=== PATIENT | female | born 1965 | race Caucasian/White ===

== ENCOUNTER → 2022-09-24 | Outpatient (CLI) | payer BC, SELFPAY ==
--- NOTE | 2022-09-24 08:43 | BI_ITS ---
MAMMOGRAPHY - BILATERAL SCREENING REASON FOR EXAM: Female, 57 years old. Routine annual screening examination. PERTINENT HISTORY: Left excisional biopsy at age 18. No reported personal or family history of breast cancer. TECHNIQUE: Digital bilateral breast radha (3D mammographic acquisition) in the CC and MLO projections. 2-D mediolateral oblique (MLO) and craniocaudad (CC) views of both breasts were obtained. CAD: Full Field Digital Mammography with Computer Added Detection was performed. COMPARISON: Mammogram from 11/28/2016, 05/23/2014. FINDINGS: Breast Composition: The breasts are heterogeneously dense, which may obscure small masses. Finding 1: There is a focal asymmetry right central retroareolar breast, middle depth, approximately 4.3 cm posterior to the nipple. This is seen best on 3-D radha synthesis views. Further assessment with spot compression views and ultrasound is recommended. Finding 2: There is an asymmetry in the right inner breast, middle depth, seen best on CC 3-D radha synthesis views, approximately 3.9 cm posterior to the nipple. Further assessment with spot compression views and ultrasound is recommended. Findings 3: There is a suspicious 2.1 x 1.3 cm high density irregularly marginated mass in the left lower inner breast, posterior depth, approximately 6 cm posterior to nipple. Further assessment with spot compression views and ultrasound is recommended. No suspicious calcifications. No other significant abnormalities identified. BI/SCRN MAMM (CAD)W/RADHA BILAT IMPRESSION: Further imaging evaluation recommended, as described above. (E) Recall Side: Both Breasts ASSESSMENT CATEGORY: BIRADS Category 0: Incomplete. Need additional imaging evaluation. A letter regarding these results will be sent to the patient by the facility within 30 days. Approximately 10% of breast cancers are not detected by mammography. A normal mammogram should not delay biopsy of a clinically suspicious abnormality. Electronically Signed: Jesús Mendoza, at 8:25 EST ,
--- NOTE | 2022-09-24 08:57 | BD_ITS ---
STUDY: DUAL ENERGY X-RAY ABSORPTIOMETRY / DXA REASON FOR EXAM: Female, 57 years old. N95.9 TECHNIQUE: Bone Mineral Density (BMD) measurements of lumbar spine and bilateral hips were obtained. COMPARISON: Comparison is made with prior examination 05/23/2014. FINDINGS: Lumbar Spine (L1-L4): g/cm2 (0.930) / T-score (-1.6) / Z-score (-0.3) Findings are suggestive of osteopenia with a moderate fracture risk. Left Femur Total: g/cm2 (0.948) / T-score (0.1) / Z-score (0.9) Left Femoral Neck: g/cm2 (0.715) / T-score (-1.2) / Z-score (0.0) Right Femur Total: g/cm2 (0.926) / T-score (-0.1) / Z-score (0.7) Right Femoral Neck: g/cm2 (0.676) / T-score (-1.6) / Z-score (-0.4) The T-Scores on the most recent prior examination were: Lumbar Spine (L1-L4): There has been worsening of bone density since the previous examination. Left Femur Total: which represents an improvement of 2.4%. Right Femur Total: which represents an improvement of 3.6%. BD/Dexa Bone Density Study IMPRESSION: The patient is considered osteopenic as outlined below according to World Slava Organization (WHO) criteria with a moderate fracture risk. There has been improvement of bone density since the previous examination. Reference Information: The T-score is the number of standard deviations above or below the standard which is normal for young adults at their peak bone mineral density. The World Health Organization (WHO) interprets the T-scores as follows: Above -1 Normal bone density Between -1 and -2.5 Osteopenia Equal to / or below -2.5 Osteoporosis As a practical clinical guideline, osteopenia may be graded as follows: Mild -1 through -1.5 Moderate -1.6 through -2.0 Severe -2.1 through -2.4 The Z-score is the number of standard deviations above or below age-matched controls. A Z-score of less than -1.5 would be considered abnormal. References: 1. NIH Osteoporosis and Related Bone Diseases www osteo.org 2. International Society for Clinical Densitometry www iscd.org 3. National Osteoporosis Foundation www nof.org Electronically Signed: Javier Sinclair MD at 15:27 EST ,
== END | disposition home or self-care (01) ==
PROVIDERS: PCP Family Medicine; Visit Provider Family Medicine
DX: Z00.00 Encounter for general adult medical examination without abnormal findings (principal); R92.8 Other abnormal and inconclusive findings on diagnostic imaging of breast; Z12.31 Encounter for screening mammogram for malignant neoplasm of breast; N63.24 Unspecified lump in the left breast, lower inner quadrant; V70.9XXA Unspecified occupant of bus injured in collision with pedestrian or animal in traffic accident, initial encounter; N95.9 Unspecified menopausal and perimenopausal disorder
CPT/HCPCS: 77063; 77067; 77080

== ENCOUNTER → 2022-09-26 | Outpatient (CLI) | payer BC, SELFPAY ==
--- NOTE | 2022-09-26 09:03 | US_ITS ---
Exam: Diagnostic bilateral breast mammogram and diagnostic bilateral breast ultrasound. REASON FOR EXAM: Female, 57 years old. Callback for bilateral breast findings concerning for malignancy. PERTINENT HISTORY: Left excisional biopsy at age 18. No reported personal or family history of breast cancer. TECHNIQUE: Digital bilateral diagnostic mammogram with spot compression CC and MLO views obtained. CAD was performed on this study. Real-time, grayscale and color sonographic images were obtained of all 4 quadrants of the bilateral breasts COMPARISON: Screening mammogram from 09/24/2022, 11/28/2016. Mammogram findings: Breast Composition: The breasts are heterogeneously dense, which may obscure small masses. Right breast: Finding 1: Spot compression views demonstrate persistence of the right central retroareolar focal asymmetry with spiculated margins concerning for mass. Finding 2: Spot compression views demonstrate persistence of the asymmetry in the right inner breast with spiculated margins concerning for mass. Additional findings: There are a few additional asymmetrical areas that persists on spot compression views and additional masses are suspected. Left breast: Findings 3: Spot compression views demonstrate persistence of high density irregularly marginated mass in the left lower inner breast. Additional findings: There are a few additional asymmetrical areas persist on spot compression views which could also relate to masses given additional findings on the remainder of the exams. Ultrasound was obtained for further assessment of both breasts. Ultrasound findings: Ultrasound of all 4 quadrants of the bilateral breasts was obtained. There are multiple bilateral suspicious masses. The most definitive masses are measured as detailed below: * 0.9 x 0.6 x 0.9 cm hypoechoic, spiculated, irregularly marginated mass with posterior shadowing at the 12 o''clock position of the right breast, 4 cm posterior to the nipple. * 0.5 x 0.4 x 0.7 cm hypoechoic, spiculated, irregularly marginated mass with posterior shadowing at the 12 o''clock position of the right breast, 5 cm posterior to the nipple. * 0.6 x 1.0 x 1.3 cm hypoechoic, spiculated, irregularly marginated mass with posterior shadowing at the 2 o''clock position of the right breast, 4 cm posterior to the nipple. * 1.7 x 0.8 x 1.4 cm hypoechoic, spiculated, irregularly marginated mass with posterior shadowing at the 10 o''clock position of the left breast, 6 cm posterior to nipple. This mass is felt to correlate to the mammographic findings although the mass appears to be in the lower inner breast on mammography. A simple cyst is noted at the 6 o''clock position of the left breast. US/Breast Complete Bilateral IMPRESSION: Multifocal bilateral masses highly suspicious for malignancy. The largest masses seen on ultrasound are detailed above. Biopsy and surgical oncologic referral is recommended. These findings were discussed with the patient in person by myself, Dr. Mendoza, after her ultrasound examination. ASSESSMENT CATEGORY: BIRADS Category 5: Highly Suggestive of Malignancy - Appropriate Action Should Be Taken. A letter regarding these results will be sent to the patient by the facility within 30 days.. Recommend return to annual screening mammogram. Approximately 10% of breast cancers are not detected by mammography. A normal mammogram should not delay biopsy of a clinically suspicious abnormality. Electronically Signed: Jesús Mendoza, at 17:13 EST ,
== END | disposition home or self-care (01) ==
PROVIDERS: PCP Family Medicine; Referring Provider Family Medicine; Visit Provider Family Medicine
DX: N63.11 Unspecified lump in the right breast, upper outer quadrant (principal); N63.14 Unspecified lump in the right breast, lower inner quadrant; N63.24 Unspecified lump in the left breast, lower inner quadrant; R92.8 Other abnormal and inconclusive findings on diagnostic imaging of breast; R92.2 Inconclusive mammogram; N63.25 Unspecified lump in the left breast, overlapping quadrants
CPT/HCPCS: 76641; 77066

== ENCOUNTER → 2022-10-01 | Outpatient (CLI) | payer BC, SELFPAY ==
--- NOTE | 2022-10-01 | IMM_PTH ---
PATIENT: KAVEH MORAN LOC: EMI U#:[id number] AGE/SX: 57/F ROOM: RE10/01/[address]: Dr. Erum Villegas MD : 1965 BED: DIS: 10/01/2022 SPEC #: [id number] RECD: 10/02/22 14:44 STATUS: MIRANDA REQ #: [id number] MILY: 10/01/22 00:[address]: Erum Villegas DEPT: IMMUNOHISTOCHEMISTRY RECD BY: Nancy Rankin ENTERED: 10/02/22 14:47 SP TYPE: IMMUNO OTHR DR: Dr. Shonda Stinson MD Tissues: A - Right breast, NOS B - Right breast, NOS D - Left breast, NOS Procedures: CK5-6 (initial) SMA (add) CALPONIN-1 (add) CK8 (add) STRONG-2 (add) E-CAD (add) ER (add) HER2 DILMA (add) KI-67 (add) P53 (add) DE (add) P40 (add) PHYSICIAN & [address] [address] SPECIMEN INFORMATION: Tissue Source: A - Right breast 12 o?clock, 5 cm, B - Right breast 12 o?clock, 4 cm, D - Left breast 10 o?clock, 6 cm Clinical Info: Likely cancer Specimen Number: [id number] A, B & D CPT code: 56281 x3, 41112 16, 24204 x6 METHODOLOGY: Deparaffinized sections of prefer/formalin-fixed tissue or PAP/DQ stained slides are incubated with monoclonal/polyclonal antibodies/oligonucleotide probes. Localization is made via biotin free immunoperoxidase method. Appropriate controls are performed and reacted as expected. Results on target cell population are indicated in the following table: RESULTS: ANTIBODY / CLONE RESULT Block A Calponin-1 (YM845Y) negative Actin (1A4) negative CK5-6 (D5 & 1684) negative Block B P53 (DO-7) negative Ki-67 (30-9) positive, 15% CK8 (26dujzT30) positive CK5-6 (D5 & 1684) negative Calponin-1 (HI618T) negative P40 (BC28) negative E-Cad (ECH-6) negative STRONG-2 (SP21) negative MORPHOMETRIC ANALYSIS ER (clone 6F11) >95%, strong intensity DE (clone 16/1E2) 85%, moderate to strong intensity Her-2Neu (clone CB11) 0 Block D P53 (DO-7) negative, 50% Ki-67 (30-9) positive CK8 (23exxbL73) positive CK5-6 (D5 & 1684) negative Calponin-1 (DI111L) negative P40 (BC28) negative E-Cad (ECH-6) positive STRONG-2 (SP21) positive MORPHOMETRIC ANALYSIS ER (clone 6F11) >95%, strong intensity DE (clone 16/1E2) 85%, moderate to strong intensity Her-2Neu (clone CB11) 0 The prognostic test for HER2 is performed on formalin-fixed paraffin embedded tissue. A 3+ (positive) staining pattern is defined as intense, homogeneous, complete, circumferential membranous staining in >10% of contiguous tumor cells. A similar weak (2+) staining pattern is interpreted as equivocal. STEFANIA follow-up testing is recommended for all equivocal cases. Positivity/negativity for ER/DE is reported if > or < 1% of the tumor cells are immuno- reactive, respectively. The ASCO/CAP criteria is used for scoring. Reference: Journal of Clinical Oncology, 2013; 31:8372-4882 & 2010; 16:0925-4763. Duration of fixation: 9.5 Hrs; Sample Adequate: Yes. These assays have not been validated on decalcified tissues. Results should be interpreted with caution given the likelihood of false negativity on decalcified specimens. These tests were developed and their performance characteristics determined by [facility]. They may not have been cleared or approved by the U.S. Food and Drug Administration. The FDA has determined that such clearance or approval is not necessary. The above immunohistochemical/dualISH markers are ordered and reviewed by the Pathologist. INTERPRETATION: A. Right breast 12 o?clock, 5 cm, biopsy: Invasive lobular carcinoma, nuclear grade I. Lobular carcinoma in situ. B. Right breast 12 o?clock, 4 cm, biopsy: Invasive lobular carcinoma, nuclear grade II. Positive for estrogen receptors (favorable prognostic indicator). Positive for progesterone receptors (favorable prognostic indicator). Negative for overexpression of OYX4plh. D. Left breast 10 o?clock, 6 cm, biopsy: Invasive ductal carcinoma, nuclear grade II. Positive for estrogen receptors (favorable prognostic indicator). Positive for progesterone receptors (favorable prognostic indicator). Negative for overexpression of GUW4eve. Case has been reviewed in consultation with Dr. Hyde who concurs with the above diagnosis. IDC:LUCA AM:adeel 10/03/2022
--- NOTE | 2022-10-01 10:20 | BRBX_PTH ---
PATIENT: KAVEH MORAN LOC: MEI U#:[id number] AGE/SX: 57/F ROOM: RE10/01/[address]: Dr. Erum Villegas MD : 1965 BED: DIS: 10/01/2022 SPEC #: [id number] RECD: 10/01/22 12:44 STATUS: MIRANDA REQ #: [id number] MILY: 10/01/22 10:[address]: Erum Villegas DEPT: SURGICAL PATHOLOGY RECD BY: Brianna Ball ENTERED: 10/01/22 15:40 SP TYPE: BREAST BX OTHR DR: Dr. Shonda Stinson MD Tissues: A - Right breast, NOS B - Right breast, NOS C - Right breast, NOS D - Left breast, NOS Procedures: Surgery Specimen Level IV HEADER OPERATION: Biopsy of breast masses ? bilateral PRE-OP DIAGNOSIS: Likely cancer TISSUE SUBMITTED: A - Right breast 12 o?clock 5 cm, B - Right breast 12 o?clock 4 cm, C - Right breast 2 o?clock 5 cm, D - Left breast 10 o?clock 6 cm MICROSCOPIC DIAGNOSIS A. Right breast at 12 o?clock, 5 cm, core biopsy: Invasive lobular carcinoma with the following characteristics: Nuclear grade ? 1 Maximal length ? 3.0 millimeters. Other findings - Lobular carcinoma in situ. See comment. B. Right breast at 12 o?clock, 4 cm, core biopsy: Invasive lobular carcinoma with the following characteristics: Nuclear grade ? 2 Maximal length ? 10.0 millimeters. See comment. C. Right breast at 2 o?clock, 5 cm, core biopsy: Invasive lobular carcinoma with the following characteristics: Nuclear grade ? 1 Maximal length ? 7.5 millimeters. D. Left breast at 10 o?clock, 6 cm, core biopsy: Invasive ductal carcinoma with the following characteristics: Nuclear grade ? 2 Maximal length ? 9.0 millimeters. See comment. AM:adeel 10/02/2022 COMMENT A, B & D - Immunohistochemistry ([id number]) supports the above diagnosis. Case has been reviewed in consultation with Dr. Hyde who concurs with the above diagnosis. IDC:SJ MICROSCOPIC DESCRIPTION Slides are reviewed. GROSS DESCRIPTION A - Received in fixative is one container labeled with the patient's name and designated right breast tissue 12 o'clock, 5 cm. The specimen consists of multiple elongated fragments of santoyo-yellow fibroadipose tissue that in aggregate measure 1.5 x 0.3 x 0.1 cm. The entire specimen is submitted in one cassette. B - Received in fixative is one container labeled with the patient's name and designated right breast tissue 12 o'clock, 4 cm. The specimen consists of multiple elongated fragments of santoyo-yellow fibroadipose tissue that in aggregate measure 1.5 x 0.5 x 0.1 cm. The entire specimen is submitted in one cassette. C - Received in fixative is one container labeled with the patient's name and designated right breast tissue 2 o'clock, 5 cm. The specimen consists of multiple elongated fragments of santoyo-yellow fibroadipose tissue that in aggregate measure 1 x 0.3 x 0.1 cm. The entire specimen is submitted in one cassette. D - Received in fixative is one container labeled with the patient's name and designated left breast tissue 10 o'clock, 6 cm. The specimen consists of two elongated fragments of santoyo-yellow fibroadipose tissue that in aggregate measure 1.8 x 0.3 x 0.1 cm. The entire specimen is submitted in one cassette. / SJ:rg 10/01/2022 TC:0 CPT: 10756 x4
== END | disposition home or self-care (01) ==
LOC: LABSPEC 13:50
PROVIDERS: PCP Family Medicine; Referring Provider Surgery; Visit Provider Surgery
DX: C50.211 Malignant neoplasm of upper-inner quadrant of right female breast (principal); C50.811 Malignant neoplasm of overlapping sites of right female breast; C50.212 Malignant neoplasm of upper-inner quadrant of left female breast; Z17.0 Estrogen receptor positive status [ER+]
CPT/HCPCS: 88305; 88341; 88342

== ENCOUNTER → 2022-10-21 | Outpatient (CLI) | payer BC, SELFPAY ==
--- NOTE | 2022-10-21 07:50 | MRI_ITS ---
STUDY: BILATERAL BREAST MR WITHOUT AND WITH CONTRAST REASON FOR EXAM: Female, 57 years old. New diagnosis of invasive lobular carcinoma. TECHNIQUE: Multi-sequence multi-echo imaging of both breasts was performed with a dedicated breast coil. T1-weighted and T2-weighted images were performed before the administration of contrast. T1-weighted images were also performed after the intravenous administration of 17ml of Clariscan contrast. COMPARISON: Bilateral breast ultrasound dated September 26, 2022 and bilateral mammogram dated September 26, 2022. FINDINGS: RIGHT BREAST: Scattered fibroglandular tissuewith moderate background enhancement. Multiple scattered irregular enhancing masses from the retroareolar region of the right breast to the posterior aspect of the right breast extending from the medial quadrant to the lateral quadrant. The largest focal mass in the upper inner quadrant measures 16 mm x 12 mm x 1 cm and is located 5.8 cm behind the nipple 2.1 cm medial to the nipple. Another focal area of enhancement is located at the 12:00 position 5.9 cm behind the nipple and measures 7 mm in widest diameter. All of these foci of enhancement are highly suspicious for tumor involvement and the entire region of enhancement occupies 4 cm x 6.3 cm x 6.9 cm and appears to involve all quadrants of the right breast. LEFT BREAST: Scattered fibroglandular tissue with moderate background enhancement. 2 irregular masses in the retroareolar region of the left breast, one measuring 11 mm in diameter and the other measuring 7 mm in diameter. Posterior and superior to this are multiple areas of clumped non-mass enhancement occupying an area of approximately 3.5 cm x 4 cm x 6.5 cm and involving all four quadrants of the left breast. Large lobular enhancing mass in the upper inner quadrant of the left breast measuring 15 mm x 12 mm 18 mm with tissue clip marker within it. This mass is located 6.7 cm behind the nipple and 3.1 cm medial to the nipple. There are no enlarged or abnormal lymph nodes. There is no abnormality in the visualized regions of the chest or liver. MRI/Breast Bilateral W/O and W IMPRESSION: Findings compatible with extensive multicentric tumor involvement in both breasts with focal areas as described above. No abnormal lymph nodes identified in either axilla. CATEGORY: BIRADS Category 6: Known Biopsy-Proven Malignancy - Appropriate Action Should Be Taken. A letter regarding these results will be sent to the patient by the facility within 30 days. Electronically Signed: Everett Almaguer, at 9:50 EST ,
== END | disposition home or self-care (01) ==
PROVIDERS: PCP Family Medicine; Referring Provider Surgery; Visit Provider Surgery
DX: C50.911 Malignant neoplasm of unspecified site of right female breast (principal); C50.912 Malignant neoplasm of unspecified site of left female breast
CPT/HCPCS: 77049; A9575; J7050; A4216; C8908

== ENCOUNTER 2022-11-12 14:35 | Observation (INO) | payer BC, SELFPAY ==
--- NOTE | 2022-11-10 12:03 | EKG12_ITS ---
Test Reason : PRE-OP Blood Pressure : / mmHG Vent. Rate : 072 BPM Atrial Rate : 072 BPM P-R Int : 138 ms QRS Dur : 080 ms QT Int : 344 ms P-R-T Axes : 044 -09 058 degrees QTc Int : 376 ms Normal sinus rhythm with sinus arrhythmia ST & T wave abnormality, consider anterior ischemia Abnormal ECG Confirmed by JACOB ESCALANTE, VIRGIL ([id number]), book or script editor LUCA PATTON ([id number]) on 11/11/2022 7:40:04 AM Referred By: AUGUSTIN Confirmed By:VIRGIL JAMES MD
[2022-11-12] VITALS (10 sets, daily range): BP systolic 129–157; BP diastolic 62–81; PULSE 67–106; RESP 16–18; TEMP 36.1–37; O2SAT 94–100; BMI 34.0
--- NOTE | 2022-11-12 | IMM_PTH ---
PATIENT: KAVEH MORAN LOC: MS3 U#:[id number] AGE/SX: 57/F ROOM: [facility] RE11/12/[address]: Dr. Erum Villegas MD : 1965 BED: 1 DIS: 11/13/2022 SPEC #: [id number] RECD: 11/17/22 11:56 STATUS: SOUMaria Del Carmen REQ #: [id number] MILY: 11/12/22 00:[address]: Erum Villegas DEPT: IMMUNOHISTOCHEMISTRY RECD BY: Nancy Rankin ENTERED: 11/17/22 12:20 SP TYPE: IMMUNO OTHR DR: Dr. Shonda Stinson MD Tissues: A - Axillary lymph node, NOS C - Axillary lymph node, NOS E - Left breast, NOS F - Axillary lymph node, NOS Procedures: E-CAD (initial) CALPONIN-1 (add) CK7 (add) CK8 (add) E-CAD (add) Pankeratin (initial) Pankeratin (add) P40 (add) PHYSICIAN & [address] [address] SPECIMEN INFORMATION: Tissue Source: A - Right sentinel lymph node, C - Left axillary sentinel lymph nodes, D - Right breast tissue, E - Left breast tissue, F - Left axillary node content Clinical Info: Invasive lobular carcinoma right breast; invasive ductal carcinoma left breast Specimen Number: [id number] A1, C2, D9, D11, E11, F1-F10 CPT code: 86654 x5, 69156 x31 METHODOLOGY: Deparaffinized sections of prefer/formalin-fixed tissue or PAP/DQ stained slides are incubated with monoclonal/polyclonal antibodies/oligonucleotide probes. Localization is made via biotin free immunoperoxidase method. Appropriate controls are performed and reacted as expected. Results on target cell population are indicated in the following table: RESULTS: ANTIBODY / CLONE RESULT Block A1 AE1-3 (AE1/AE3/PCK26) negative CK7 (OV-TL12/30) negative Block C2 AE1-3 (AE1/AE3/PCK26) negative CK7 (OV-TL12/30) negative Block D9 E-Cad (ECH-6) negative * CK8 (68aseeA39) positive P40 (BC28) negative Calponin-1 (AG423G) negative *?Positive in area of invasive ductal carcinoma and ductal carcinoma in situ. Block D11 E-Cad (ECH-6) negative CK8 (76jkspG63) positive P40 (BC28) negative Calponin-1 (LL577C) negative ?Positive in DCIS. ?Positive in the area of LCIS and DCIS. Block E11 E-Cad (ECH-6) negative * CK8 (06tiioC89) positive P40 (BC28) positive in myoepithelial layers Calponin-1 (KT823U) positive in myoepithelial layers * positive?in the area of DCIS. Block F1 AE1-3 (AE1/AE3/PCK26) negative CK7 (OV-TL12/30) negative Block F2 AE1-3 (AE1/AE3/PCK26) negative CK7 (OV-TL12/30) negative Block F3 AE1-3 (AE1/AE3/PCK26) positive, micrometastasis CK7 (OV-TL12/30) positive, micrometastasis Block F4 AE1-3 (AE1/AE3/PCK26) negative CK7 (OV-TL12/30) negative Block F5 AE1-3 (AE1/AE3/PCK26) negative CK7 (OV-TL12/30) negative Block F6 AE1-3 (AE1/AE3/PCK26) negative CK7 (OV-TL12/30) negative Block F7 AE1-3 (AE1/AE3/PCK26) negative CK7 (OV-TL12/30) negative Block F8 AE1-3 (AE1/AE3/PCK26) negative CK7 (OV-TL12/30) negative Block F9 AE1-3 (AE1/AE3/PCK26) negative CK7 (OV-TL12/30) negative Block F10 AE1-3 (AE1/AE3/PCK26) negative CK7 (OV-TL12/30) negative These tests were developed and their performance characteristics determined by [facility]. They may not have been cleared or approved by the U.S. Food and Drug Administration. The FDA has determined that such clearance or approval is not necessary. The above immunohistochemical/dualISH markers are ordered and reviewed by the Pathologist. INTERPRETATION: A. Right sentinel lymph node, biopsy: One lymph node, negative for metastatic carcinoma. C. Left axillary sentinel lymph nodes, biopsy: One lymph node, negative for metastatic carcinoma. D. Right breast tissue, mastectomy: Invasive lobular carcinoma. Lobular carcinoma in situ. A small focus of invasive ductal carcinoma. Focal ductal carcinoma in situ. E. Left breast tissue, mastectomy: Focal ductal carcinoma in situ. Focal lobular neoplasia (including atypical lobular hyperplasia and lobular carcinoma in situ). F. Left axillary node content, biopsy: One lymph node out of 19 positive for micrometastasis. SJ:adeel 11/18/2022
--- NOTE | 2022-11-12 | AXNB_PTH ---
PATIENT: KAVEH MORAN LOC: MS3 U#:[id number] AGE/SX: 57/F ROOM: [facility] [place] RE11/12/[address]: Dr. Erum Villegas MD : 1965 BED: 1 DIS: 11/13/2022 SPEC #: [id number] RECD: 11/12/22 11:16 STATUS: MIRANDA ISIDRO #: [id number] MILY: 11/12/22 00:[address]: Erum Villegas DEPT: SURGICAL PATHOLOGY RECD BY: Nancy Rankin ENTERED: 11/12/22 11:52 SP TYPE: AX NODE BX OTHR DR: Dr. Shonda Stinson MD Tissues: A - Axillary lymph node, NOS B - Axillary lymph node, NOS C - Axillary lymph node, NOS D - Right breast, NOS E - Left breast, NOS F - Axillary lymph node, NOS Procedures: Frozen Section (charge) Surgery Specimen Level V HEADER OPERATION: Bilateral mastectomies with right sentinel lymph node biopsy PRE-OP DIAGNOSIS: Invasive lobular carcinoma right breast; invasive ductal carcinoma left breast TISSUE SUBMITTED: A - Right breast sentinel lymph node, FS, B - Left breast sentinel lymph node, FS, C - Left breast sentinel lymph nodes, FS, D - Right breast tissue, long suture - lateral, short suture - superior, E - Left breast tissue, long suture - lateral, short suture - superior, F - Left axillary node content FROZEN SECTION DIAGNOSIS A. Right sentinel lymph node, biopsy: One lymph node, negative for metastatic carcinoma. B. Left axillary sentinel lymph node, biopsy: One lymph node, positive for metastatic carcinoma. C. Left axillary sentinel lymph nodes, biopsy: One out of two lymph nodes, positive for metastatic carcinoma. LUCA:adeel 11/12/2022 MICROSCOPIC DIAGNOSIS A. Right sentinel lymph node, biopsy: One lymph node, negative for metastatic carcinoma. See comment. B. Left axillary sentinel lymph node, biopsy: One lymph node, positive for metastatic carcinoma. See comment. C. Left axillary lymph nodes, biopsy: One out of two lymph nodes, positive for metastatic carcinoma. See comment. D. Right breast, mastectomy: Invasive lobular carcinoma, multifocal x4. Invasive ductal carcinoma (0.5 x 0.2 cm). 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 See cancer summary in the comment section. E. Left breast, mastectomy: Invasive ductal carcinoma. See cancer summary in the comment section. F. Left axillary contents, lymph node dissection. One out of 19 lymph nodes positive for micrometastatic carcinoma. See comment. LUCA:adeel 11/17/2022 COMMENT A. The lymph node is negative for metastatic carcinoma on multiple H & E levels and immunohisto-chemical stains for cytokeratins ([id number]). B. The metastatic focus measures 0.5 cm in greatest dimension. Extranodal extension is not seen. C. The metastatic focus measures 2.0 cm in greatest dimension. Extranodal extension is not seen. The smaller lymph node with blue dye discoloration is negative for metastatic carcinoma on multiple levels and immunohistochemical stains for cytokeratins. ([id number]). F. Immunohistochemistry ([id number]) supports the above diagnosis. Focus of micrometastasis measures 1.5 mm in greatest dimension. Extranodal extension is not seen. D. BREAST CANCER SUMMARY Procedure ? total mastectomy Specimen laterality - right Tumor site ? central and medial portion. Tumor size ? Invasive lobular carcinoma largest focus - 1.3 x 1.2 cm Invasive ductal carcinoma - 0.5 x 0.2 cm Histologic type ? Invasive ductal carcinoma, no special type and invasive lobular carcinoma. Histologic grade (Ira grade): Invasive lobular carcinoma: Glandular/tubular differentiation score - 3 Nuclear pleomorphism score - 2 Mitotic count score - 1 Overall grade - grade 2 (score of 6) Invasive ductal carcinoma: Glandular/tubular differentiation score - 1 Nuclear pleomorphism score - 1 Mitotic count score - 1 Overall grade - grade 1 (score of 3) Tumor focality ? Multifocal Number of foci: five four foci of invasive lobular carcinoma Size of individual foci ? Tumor #1 ? 1.0 x 1.0 cm Tumor #2 ? 1.3 x 1.2 cm Tumor #3 ? 1.2 x 1.0 cm Tumor #4 ? 1.0 x 0.7 cm one focus of invasive ductal carcinoma ? 0.5 x 0.2 cm Ductal carcinoma in situ ? present, focal Negative for extensive intraductal component (EIC). Size (extent) of DCIS ? DCIS comprise <5% of the total tumor volume. Number of blocks with DCIS ? 2 Architectural pattern ? cribriform Nuclear grade ? low to intermediate Necrosis - present Lobular carcinoma in situ ? present, adjacent to the invasive carcinoma and away from it. Tumor extension: Skin ? skin is present and uninvolved. Nipple ? DCIS does not involve nipple epidermis. Skeletal muscle ? no skeletal muscle is present. Margins ? Invasive lobular carcinoma, invasive ductal carcinoma, lobular carcinoma in situ and ductal carcinoma in situ are 2.0 cm away from the closest posterior margin. Regional lymph nodes: Specimen A Number of lymph nodes examined - 1 Number of sentinel lymph nodes examined - 1 Number of lymph nodes with macrometastases, micrometastases or isolated tumor cells - 0 Treatment effect - no known presurgical therapy. Lymphvascular invasion ? not identified Dermal lymphvascular invasion - not identified Additional Pathologic Findings ? Extensive atypical lobular hyperplasia, fibrocystic changes and intraductal hyperplasia with atypia. Ancillary Studies: Previously performed (S23 / RF23-18) ER: positive (>95%, strong intensity) IA: positive (85%, moderate to strong intensity) Fnt2jdo: negative (0) Microcalcifications ? present in lobular carcinoma in situ and non-neoplastic breast tissue. Clinical History - Please make reference to previous specimen (S2), right breast at 12 o?clock, 5 cm and right breast at 12 o?clock, 4 cm and right breast, 2 o?clock, 5 cm, core biopsies with diagnosis of ?invasive lobular carcinoma.? PATHOLOGIC STAGE: pT1(m) pN0 pMx E. BREAST CANCER SUMMARY Procedure ? mastectomy Specimen laterality - left Tumor site ? central portion of the breast Tumor size ? 2.0 x 1.8 x 1.5 cm Histologic type ? invasive ductal carcinoma, no special type. Histologic grade ([place] grade): Glandular/tubular differentiation score - 3 Nuclear pleomorphism score - 3 Mitotic count score - 1 Overall grade - grade 2 (score of 7) Tumor focality ? single focus of invasive carcinoma. Ductal carcinoma in situ - present Negative for extensive intraductal component (EIC). Size (extent) of DCIS ? DCIS comprise <5% of the total tumor volume. Number of blocks with DCIS - 2 Number of blocks examined - 12 Architectural pattern ? cribriform and solid Nuclear grade - grade 2 (intermediate) Necrosis ? not identified Lobular carcinoma in situ ? present Tumor extension: Skin ? skin is present and uninvolved. Nipple ? DCIS does not involve the nipple epidermis. Skeletal muscle ? no skeletal muscle present. Margins - Invasive ductal carcinoma, lobular carcinoma in situ and ductal carcinoma in situ are 1 cm away from the closest posterior margin. Regional lymph nodes: specimens B, C & F Number of lymph nodes examined - 22 Number of sentinel lymph nodes examined - 3 Number of lymph nodes with macrometastases ? 2 Number of lymph nodes with micrometastases ? 1 Number of lymph nodes with isolated tumor cells ? 0 Size of largest metastatic deposit ? 2 cm Extranodal extension ? not identified Treatment effect - no known presurgical therapy. Lymphvascular invasion ? not identified Dermal lymphvascular invasion ? not identified Additional Pathologic Findings ? fibrocystic changes and adenosis. Intraductal hyperplasia with focal atypia. Atypical lobular hyperplasia. Nipple, chronic inflammation. Ancillary Studies: Previously performed on section of tumor (S23-54 / RF23-18) ER: positive (>95%, strong intensity) IA: positive (85%, moderate to strong intensity) Dsl3iba: negative (0) Microcalcifications ? present in benign breast tissue. Clinical History - Please make reference to previous specimen (S23-54) left breast at 10 o?clock, 6 cm, core biopsy with diagnosis of ?invasive ductal carcinoma.? PATHOLOGIC STAGE: pT1c pN1a pMx The above summary is in compliance with [employer] (CAP) Cancer Protocols Checklist and [place] [employer] on Cancer (AJCC), Staging Manual, 8th Ed. This case is discussed with Dr. Villegas on 11/18/22. Case has been reviewed in consultation with Dr. Valenzuela who concurs with the above diagnosis. IDC:AM MICROSCOPIC DESCRIPTION Slides are reviewed. GROSS DESCRIPTION A - Received fresh for frozen section diagnosis labeled with the patient's name is a specimen designated right sentinel lymph node. The specimen consists of an ovoid nodule with blue dye discoloration measuring 2.0 x 1.0 x 0.6 cm. The specimen is bisected and submitted entirely for frozen section diagnosis in one cassette. The specimen is submitted after additional fixation. / : 11/12/2022 B - Received fresh for frozen section diagnosis labeled with the patient's name is a specimen designated left axillary sentinel lymph node. The specimen consists of an ovoid nodule with blue dye discoloration measuring 3.5 x 2.0 x 1.0 cm. The specimen is bisected and submitted entirely for frozen section diagnosis in two cassettes. The specimen is submitted after additional fixation. / : 11/12/2022 C - Received fresh for frozen section diagnosis labeled with the patient's name is a specimen designated left axillary sentinel lymph nodes. The specimen consists of two pieces of yellow adipose tissue containing lymph nodes measuring 5.0 x 4.0 x 1.5 cm and 1.0 x 0.5 x 0.5 cm. The smaller lymph node shows blue dye discoloration. The larger lymph node measures 2.0 cm in greatest dimension. The lymph nodes are submitted in entirety in five cassettes as follows: 1 - frozen section, larger lymph node a agency service representative section, 2 - one bisected lymph node, 3-5 - the rest of the larger lymph node. / : 11/12/2022 D - Received in fixative is one container labeled with the patient's name and designated right breast tissue, long suture - lateral, short suture - superior. The specimen consists of a mastectomy specimen consisting of breast tissue with overlying skin measuring 18.0 x 19.0 x 5.0 cm. The skin measures 17.0 x 5.5 cm. The nipple measures 1.4 cm in greatest dimension. The specimen is inked as follows: posterior - black, superior - blue, inferior - green, medial - red and lateral - orange. No skin lesion is identified. Four ill-defined masses are noted. The largest mass measures 1 cm in greatest dimension. Three masses are present in the central portion of the specimen and fourth mass is present medially. The most closes margin is posterior margin which is 2 cm away from the tumor mass. Sections of the rest of the specimen reveal santoyo-yellow adipose cut surfaces with focal fibrous areas. Blister Packaging Machine Operator sections are submitted in 20 cassettes as follows: 1 - nipple, entirely submitted, 2 - perpendicular superior, inferior margins and skin, 3 - perpendicular medial, lateral and posterior margins, 4 & 5 - tumor #1, most medial, 6-8 - tumor #2, 9-11 - tumor #3, 12 & 14 - tumor #4. All the tumors identified grossly are submitted in entirety. 15-20 ? agency service representative sections from the other areas. The specimen is submitted after additional fixation. / SJ: 11/13/2022 E - Received in fixative is one container labeled with the patient's name and designated left breast tissue, long suture - lateral, short suture - superior. The specimen consists of a mastectomy specimen consisting of breast tissue with overlying skin ellipse. The breast tissue measures 19.0 x 20.0 x 5.0 cm. The skin measures 16.0 x 7.0 cm. The nipple measures 1.4 cm in greatest dimension. The specimen is inked as follows: posterior - black, superior - blue, inferior - green, medial - red and lateral - orange. No skin lesion is identified. Sections reveal a santoyo, indurated mass in the central portion of the breast measuring 2.0 x 1.8 x 1.5 cm. This mass is 1.0 cm away from the closest posterior margin. Sections of the rest of the breast reveal santoyo-yellow adipose cut surfaces mixed with santoyo fibrous areas. Blister Packaging Machine Operator sections are submitted in 12 cassettes as follows: 1 - nipple, entirely submitted, 2 - perpendicular superior and inferior margins and skin, 3 - perpendicular medial, lateral and posterior margins, 4-7 - tumor, 812 - agency service representative sections adjacent and away from the tumor. The specimen is submitted after additional fixation. / SJ:rg 11/13/2022 F - Received in fixative is one container labeled with the patient's name and designated left axillary node content. The specimen consists of a piece of adipose tissue containing multiple nodules consistent with lymph nodes measuring in aggregate 8.0 x 7.0 x 2.0 cm. Multiple nodules consistent with lymph nodes are identified. The largest nodule measures 3.0 cm in greatest dimension. Four nodules also show blue dye discoloration. The lymph nodes are submitted in entirety in ten cassettes as follows: 1 - one bisected lymph node, 2 - one bisected lymph node, 3 - one bisected lymph node (cassette 1-3 contain the nodules with blue dye discoloration), 4 - multiple lymph nodes, one lymph node with blue dye discoloration which is inked black, 5 - multiple lymph nodes, 6 - one bisected lymph node, 7 - one bisected lymph node, 8 - one bisected lymph node, 9 & 10 - one bisected lymph node, largest lymph node. The specimen is submitted after additional fixation. / SJ:rg 11/13/2022 TC:0 CPT: 76176 x6, 71247 x3, 71941 x2 ADDENDUM ADDENDUM ADDENDUM ADDENDUM ADDENDUM ADDENDUM ADDENDUM ADDENDUM ADDENDUM ADDENDUM ADDENDUM ADDENDUM 12/22/2022 09:30 ADDENDUM 12/22/2022 09:30 ADDENDUM 12/22/2022 09:30 ADDENDUM 12/22/2022 09:30 ADDENDUM 12/22/2022 09:30 An order for Oncotype testing was received from Dr. Guillaume. This necessitated case review, block and slide selection by pathologist at [facility]. Block D9: Breast Cancer Recurrence Score = 12 Block E5 Breast Cancer Recurrence Score = 11 Results of the complete Oncotype testing ([employer] report) are viewable in EMR under: Reports - Pathology - Lab Pathology Report, Scanned.
--- NOTE | 2022-11-12 07:45 | NM_ITS ---
PROCEDURE: NUCLEAR MEDICINE Injection [place] Node - RIGHT breast(s). REASON FOR EXAM: Female, 57 years old. Right breast cancer. TECHNIQUE: [place] node localization using radionuclide methods of the RIGHT breast(s) was performed following subcutaneous administration of 1.1 mCi of of sulfur colloid Tc-99m. FINDINGS: 1.1 mCi of technetium labeled sulfur colloid was injected subcutaneously in 4 equal aliquots for sentinel node imaging. NM/Lymph Node Injection Only IMPRESSION: 1.1 mCi of technetium labeled SULFA colloid was injected subcutaneously in 4 equal aliquots for sentinel node imaging. The patient tolerated the procedure well. Electronically Signed: Javier Sinclair MD at 9:05 EST ,
--- NOTE | 2022-11-12 07:45 | NM_ITS ---
PROCEDURE: NUCLEAR MEDICINE Injection [place] Node - LEFT breast(s). REASON FOR EXAM: Female, 57 years old. TECHNIQUE: [place] node localization using radionuclide methods of the LEFT breast(s) was performed following subcutaneous administration of 1.1 mCi of of sulfur colloid Tc-99m in 4 equal aliquots in the periareolar region. FINDINGS: 1.1 mCi of technetium labeled sulfur colloid was injected subcutaneously in the periareolar region. The patient tolerated the procedure well. NM/Lymph Node Injection Only IMPRESSION: 1.1 mCi FDG. The gallbladder was injected subcutaneously in the periareolar region for sentinel node imaging. Electronically Signed: Javier Sinclair MD at 9:03 EST ,
[2022-11-12] MEDS: Lactated Ringers 1,000 ML 15 ML IV (07:55)
--- NOTE | 2022-11-12 09:25 | HP.PCM_ITS ---
History and Physical Date of Admission: 11/12/22 Date of Service:? 11/10/22 MR#: [id number] Acct: [id number] Name:KAVEH MAYEN Rep #: [id number] : 1965 ? ? Provider: Dr. Erum Villegas MD Age/Sex:? 57/F ? ? Location: [facility] [place] Status: Signed Intake Vital Signs ? 10/28/2307:03 Height 5 ft 4 in Intake Visit Reasons:?Wants a sit down to discuss surgery Chief Complaint: discuss surgery Anesthesiology Tech Required: No Is patient in pain?: No Allergies No Known Allergies Allergy (Verified 11/10/22 13:13) Medications calcium carbonate 500 mg-vitamin D3 10 mcg (400 unit) tablet (Calcium 500 + D) 1 tab PO DAILY 11/05/22 [History Confirmed 11/10/22] echinacea 400 mg capsule 400 mg PO DAILY 11/05/22 [History Confirmed 11/10/22] multivitamin 1 tab PO DAILY 11/05/22 [History Confirmed 11/10/22] Is last menstrual period known: No Post menopausal: Yes Patient : No PFSH Medical History?(Updated 11/10/22 @ 15:[address] Erum Villegas MD) Gastric reflux History of stress test 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 of right breast in female Kidney stone Non-smoker Post-menopausal Scoliosis Wears glasses Wears partial dentures Surgical History?(Updated 11/10/22 @ 13:14 by Camille Vargas) History of bilateral breast biopsy (~09/2022) History of partial hysterectomy Hx of exploratory laparotomy Hx of shoulder surgery Family History?(Updated 10/01/22 @ 10:11 by Charley Medel) Mother CancerSister Thyroid disorder Cancer Social History?(Updated 10/01/22 @ 10:12 by Charley Medel) Smoking Status:? Never smoker alcohol intake:? current alcohol intake frequency: a few times a month substance use type:? does not use HPI HPI HPI: 57-year-old female presents to discuss surgery for bilateral breast cancer.? Biopsy shows 3 areas in the right breast consistent with invasive lobular carcinoma grade 1-2, ER/HI positive HER2/balbir negative.? Patient's left breast had invasive ductal grade 2, ER/HI positive HER2/balbir negative.? Patient's MRI did show distal area in the left left breast towards the nipple which enhanced- however there are no abnormal looking nodes in the right or left axilla.? Patient has no family history of breast cancer. ROS General General: No weight change, appetite, fatigue, colon cancer or breast cancer HEENT HEENT: No difficulty swallowing, eye injury, eye surgery, swollen glands or hoarseness Endo Endocrine: No thyroid disease, diabetes mellitus, thyroid cancer, Hair loss, heat intolerance or cold intolerance Skin Skin: No rash or changing moles Breast Breast: Yes abnormal mammogram and abnormal US; No left breast lump, right breast lump, nipple discharge, breast pain or breast enlargement Musc Musculoskeletal: Yes back problems; No arthritis, rheumatoid arthritis, gout or joint pain Cardio Cardiovascular: No murmur, pacemaker, heart disease, atrial fibrillation, high blood pressure, heart attack, heart stent, palpitations, shortness of breat with exertion or chest pain Psych Psychiatric: No depression, anxiety or hearing voices Resp Respiratory: No shortness of breath, No sleep apnea, No cough, No COPD, No asthma, No emphysema and No wheezing Gastro Gastrointestinal: No abdominal pain, No nausea or vomiting, No diarrhea, No constipation, No blood in stool, No acid reflux, No hemorrhoids, No ulcers, No gallbladder problem and No black,tarry stools Jonathan Hematologic: No blood thinners, No blood disorders, No bleeding, No anemia and No blood clots Exam Const General: cooperative, healthy appearing and no acute distress HENMT Head: normal to inspection Resp Effort & Inspection: normal respiratory effort Cardio Rate: regular rate GI Inspection: non-distended Palpation: soft Skin General: no rashes or lesions noted Neuro General: patient oriented x3 Extrem General: no clubbing, cyanosis or edema Psych Affect: normal affect Assessment and Plan Assessment and Plan (1) Invasive lobular carcinoma of right breast in female: ?Status:?Acute ?Comment: 3 sites biopsied (2) Invasive ductal carcinoma of left breast: ?Status:?Acute ?Comment: 1 biopsied with an additional area closer to nipple on MRI Plan Did review patient's pathology as well as her MRI personally and with the patient and her . I have given the patient options for initial surgical treatment. Options are the following:? mastectomy vs. mastectomy followed by immediate reconstruction due to the extent of disease seen on MRI. I have described the procedures to the patient. I have described the advantages and disadvantages of the options, but I have told the patient that among the options, the survival rate for breast cancer is the same. I have told the patient that with all the surgeries that a sentinel lymph node biopsy is required. I have described the procedure of sentinel lymph node biopsy to the patient. I have told the patient that if the biopsy is positive for metastatic disease, then a full axillary lymph node dissection is required. I have told the patient that adjuvant chemotherapy will be required should the lym ph nodes reveal metastatic disease. Also, a full lymph node dissection will increase the risk for lymphedema, especially if there are 4 or more lymph nodes positive for metastatic disease and radiation to the axilla is also required. I have told the patient the risks of surgery, including but not limited to: infection, bleeding, scar tissue, seroma and persistent seroma, lymph leak, injury to any blood vessels, injury to any nerves (particularly the long thoracic, the thoracodorsal, and the second intercostal brachial and the resultant sequelae), lymphedema, cosmetic deformity, dysesthesias, wound infections, further surgery (especially if margins are not clear), complications of anesthesia, etc.? the patient understands.? Patient plans to proceed with a bilateral mastectomy with sentinel lymph node biopsy possible axillary lymph node dissection if 3 nodes or more or greater or if the sentinel nodes do not trace.? Patient has no further questions this time. Patient was also agreeable to have one of my partners assist to decrease anesthesia time. Erum Villegas M.D. Pager: [phone] [facility] [address] [place] [address], [address] [place] [address] Office: [phone] Coding Level of Care Code Off vis,est,level 4 Diagnoses Invasive lobular carcinoma of right breast in female? C50.911 Invasive ductal carcinoma of left breast? C50.912 11/10/22 1517 <Electronically signed by Erum Villegas MD> Date Erum Villegas MD
[2022-11-12] MEDS: Cefazolin 2 GM in 0.9% Normal Saline 100 ML IV (10:04)
[2022-11-12] MEDS: 0.9% Normal Saline (Pres. free 10 ML Vial (10:20)
--- NOTE | 2022-11-12 14:20 | PCM.OPRPT ---
Report of Operation Date of Procedure: 11/12/22 Pre-Operative Diagnosis: Right invasive of lobular breast cancer, left invasive ductal breast cancer Post-Operative Diagnosis: Same Surgery/Procedure Performed:: Bilateral mastectomies, right sentinel lymph node biopsy with nuclear tracer and blue dye, left axillary lymph node dissection. Description of Surgical Findings:: Right axilla: 1 node negative on frozen, left axilla: 1 node positive on frozen additional 2 nodes sent-- 1 grossly positive and the other one negative??proceeded with axillary node dissection Surgeon: Erum Villegas automated cutting machine operator: Katerine Haney automated cutting machine operator: Cheli Woods Type of Anesthesia: General/Supplemental Anesthesiologist: Jaison Stephen Special Medications: Ancef 2 g IV x2 Specimen's removed: 1. Right sentinel lymph node, 2. Right mastectomy, 3. Left sentinel lymph node, 4. Left mastectomy, 5. Additional left sentinel lymph node?1 blue, 1 grossly positive, 6. Left axillary node contents Drains: 4---15 [place] HUEY drains two bilaterally. Estimated Blood Loss (mL): 30 cc Fluids Replaced: Per anesthesia Description of Procedure: Synoptic Portion: RIGHT breast Element Response Options Operation performed with curative intent. Yes Tracer(s) used to identify sentinel nodes in the upfront surgery (non-neoadjuvant) setting (select all that apply). Dye; Radioactive tracer Tracer(s) used to identify sentinel nodes in the neoadjuvant setting (select all that apply).N/A. All nodes (colored or non-colored) present at the end of a dye-filled lymphatic channel were removed. Yes All significantly radioactive nodes were removed. [Yes; No (with explanation); N/A.] All palpably suspicious nodes were removed. [Yes; No (with explanation); N/A. ] Biopsy-proven positive nodes marked with clips prior to chemotherapy were identified and removed. N/A. Synoptic Portion: LEFT breast Element Response Options Operation performed with curative intent. Yes Resection was performed within the boundaries of the axillary vein, chest wall (serratus anterior), and latissimus dorsi. Yes Nerves identified and preserved during dissection (select all that apply) Long thoracic nerve; Thoracodorsal nerve; Branches of the intercostobrachial nerves (unable to be preserved) Level III nodes were removed. No Description of Procedure: Radiologist injected periareolar breast tissue bilaterally with TC-9 9 sulfur colloid. >90 minutes later the patient was taken to the operating room and general anesthesia was induced. Both sides were done similarly. 5 cc of methylene blue blue dye was injected in the 4 quadrants periareolar along with 10 cc of normal saline. This was massaged gently for 5 minutes. The bilateral breast and axilla were prepped and draped in usual sterile fashion. A timeout was completed verifying correct patient, procedure, site, positioning, special equipment prior to beginning procedure. General anesthesia was induced. Please see Dr. Nathan's report for the left mastectomy and sentinel lymph node biopsy. Handheld gamma probe was used to identify the location of the hottest spot in the right axilla. Prior to the incision, the counts were 34 on the right. The incision was made in the hot and blue node was identified. The probe was placed in contact with the node in the 10 count was 3964. The bed of the node measured 13 counts. No additional blue or hot nodes or grossly positive nodes were detected. Skin incision was made that encompassed the nipple areolar complex and the previous biopsy scar in past and generally oblique direction across the breast. Flaps are raised in the avascular plane between the prescription he continues tissues in the breast tissue from the clavicle superiorly, the sternum medially, the anterior rectus sheath inferiorly, and posterolateral border of the pectoralis major muscle laterally. Hemostasis was achieved in the flaps. Next, the breast tissue and underlying pectoralis fascia were excised from the pectoralis major muscle, progressing from medial to laterally. At the lateral border of the pectoralis major muscle, the breast tissue was swung laterally and the lateral pedicle identified with the breast tissue gave way to the fat of the axilla. The lateral pedicle was incised and the specimen removed and oriented for pathology. The wound was irrigated and hemostasis was achieved. Closed suction drains were brought into the operating field through a separate stab incision and sutured to skin with 3-0 nylon suture. The incision was closed with interrupted 2-0 Vicryl to the simultaneously followed by a subcuticular layer of 4-0 Monocryl and Steri-Strips. Please see Dr. Nathan report for the left mastectomy and sentinel lymph node biopsy which grossly showed a positive node. Additional gross positive left axillary nodes were noted and proceeded with left axillary lymph node dissection. The borders of the axillary vein, latissimus dorsi, serratus anterior are identified. The long thoracic and thoracodorsal nerves are also identified and protected throughout the dissection. Intercostobrachial nerve was identified however unable to be preserved. All the nodes within these borders along with the positive lymph node are removed and sent to pathology. Closed suction drains were brought into the operating field through a separate stab incision and sutured to skin with 3-0 nylon suture. The incision was closed with interrupted 2-0 Vicryl to the simultaneously followed by a subcuticular layer of 4-0 Monocryl and Steri-Strips. The wound was dressed with ABD pads and JUAN PABLO wrap. The patient tolerated procedure well and sent to postanesthesia care unit in stable condition. Complications none
[2022-11-12] MEDS: Lactated Ringers 1,000 ML 120 ML IV (16:54)
--- NOTE | 2022-11-12 17:13 | PCM.OPRPT ---
Report of Operation Date of Procedure: 11/12/22 Pre-Operative Diagnosis: Invasive ductal carcinoma of the left breast Post-Operative Diagnosis: 1. Invasive ductal carcinoma of left breast 2. Positive left axillary sentinel node Surgery/Procedure Performed:: 1. Left simple mastectomy 2. [place] lymph node biopsy via dual tracer technique Description of Surgical Findings:: ? Detection of the deep axillary lymph node with blue color and 10-second gamma probe count of 2836. Surgeon: Atilio Nathan sociology faculty member: Cheli Woods Type of Anesthesia: General/Supplemental Specimen's removed: 1. Left axillary sentinel lymph node 2. Left breast Estimated Blood Loss (mL): 75 Description of Procedure: At the time of my arrival to the operating room, patient was already induced with a general anesthetic, prepped, and draped for her operation. A formal timeout was conducted amongst those present and our portion of the procedure was begun by making an elliptical incision about the patient's nipple areolar complex to establish superior and inferior mastectomy flaps. These incisions were carried down through the dermal layer to the breast tissue with use of electrocautery. Systematically breast tissue was taken off the posterior aspect of the flap in the avascular plane with the use of electrocautery. Any bleeding vessels were secured with selective electrocautery or suture ligated. Borders for our dissection included the clavicle superiorly, sternum medially, rectus complex inferiorly, and the pectoralis major muscle inferiorly and laterally. The breast tissue was taken off the underlying muscle with the use of electrocautery and oriented for pathology before it was passed off the field. Our neoprobe, gamma probe device was used laterally in the patient's surgical cavity created from our mastectomy once we had deepened our dissection through the clavipectoral fascia. This was used to guide the initial approach of our dissection which proceeded deep into the axilla?referencing gamma probe counts and following dyed lymphatic channels. Ultimately, I identified a blue?colored, enlarged lymph node deep within the axilla that had a clear increased radioactivity from the surrounding axillary tissue. This was carefully encircled and any obvious lymphatic channels were sealed with electrocautery. The lymph node was excised and a 10-second count from our neoprobe returned 2836. Brief examination of the remaining axillary tissue was made with the neoprobe, but there was no significant count. The node was passed off the field for pathologic processing and we returned to our work in the breast. Pathology then called to notify us that our sentinel lymph node submission was positive for metastatic infiltrating ductal carcinoma. At this point I had to leave the operation, but Nelly Gregory had completed her work on the patient's right side, changed gown and gloves and joined me on the left side where she then proceeded with a axillary lymph node dissection upon finding additional grossly suspicious lymph nodes. See her dictation for these complete details. [place] lymph node synoptic Operation performed with curative intent: Yes Tracer used to identify sentinel nodes: Technetium sulfur colloid and methylene blue All nodes (color or noncolored) present at the end of a dye filled lymphatic channel were removed. All significantly (within 10% of sentinel node gamma probe count) were removed. After pathologic confirmation of positive sentinel node axilla was reexamined and additional grossly suspicious lymph nodes were identified?occasioning axillary dissection by Dr. Villegas Complications None Admit VTE Documentation VTE Mechan Device Prophylaxis: SCD's
[2022-11-12] MEDS: Isosulfan Blue 1% 5 ML Vial (17:18)
[2022-11-12] MEDS: Acetaminophen 325 MG Tablet 650 MG PO (19:13)
[2022-11-13] MEDS: Lactated Ringers 1,000 ML 120 ML IV (00:10)
[2022-11-13 02:20] VITALS: BP 127/53; PULSE 66; RESP 16; TEMP 36.6; O2SAT 95
[2022-11-13] MEDS: Acetaminophen 325 MG Tablet 650 MG PO (05:42)
[2022-11-13 06:18] LABS: Absolute Lymphocyte Count 1.72 X10^3/uL (0.83-4.51); Absolute Neutrophil Count 16.9 X10^3/uL (2.0-7.7); Basophil# 0.01 X10^3/uL; Hematocrit 38.6 % (37-47); Hemoglobin 13.1 g/dL (12.0-15.0); Lymphocyte # 1.72 X10^3/ul (0.83-4.51); Lymphocyte % 8.6 % (19-41); Mean Corp Hgb Conc 33.9 g/dL (32-36); Mean Corpuscular Volume 91.3 fL (81-99); Mean Platelet Vol. 9.8 fl (6.2-12.0); Monocyte# 1.26 X10^3/uL; Monocyte% 6.3 % (0-10); NRBC Flagged by Analyzer 0 % (0-5); Neutrophil # 16.92 X10^3/uL (2.7-7.7); Neutrophil % 84.6 % (47-70); Platelet Count 273 K/mm3 (150-450); RBC Distribution Width CV 12.2 % (11.6-14.6); RBC Distribution Width SD 40.7 fl (35.1-43.9); Red Blood Count 4.23 M/mm3 (4.2-5.4)
--- NOTE | 2022-11-13 06:20 | NURSING ---
Lab unable to draw from foot. This rn jeff blood from rt legx2.
--- NOTE | 2022-11-13 07:19 | PN.SURG_ITS ---
Subjective Subjective Patient is doing well is only taking Tylenol for pain. JPs are sanguinous x4. Objective Data Objective Data Vital Signs: Vital Signs Temp Pulse Resp BP Pulse Ox O2 Del Method O2 Flow Rate 97.8 F 66 16 127/53 H 95 Room Air 2 11/13/22 02:20 11/13/22 02:20 11/13/22 02:20 11/13/22 02:20 11/13/22 02:20 11/13/22 02:20 11/12/22 15:15 Oxygen Flow Rate (L/min) 2 Oxygen Delivery Method Room Air Weight: 198 lb 6.656 oz Body Mass Index (BMI) 34.0 Intake & Output: Intake and Output for Last 24 Hours 11/11/22 11/12/22 11/13/22 23:59 23:59 23:59 Intake Total 1110 / 1410 1372 / 1372 Output Total 380 / 970 1225 / 1225 Balance 730 / 440 147 / 147 Lab / Micro Data Result Diagrams: 11/13/22 06:10 Labs: Laboratory Results - last 24 hr 11/13/22 06:10: WBC 20.0 H, RBC 4.23, Hgb 13.1, Hct 38.6, MCV 91.3, MCH 31.0, MCHC 33.9, RDW Std Deviation 40.7, RDW Coeff of Reyes 12.2, Plt Count 273, MPV 9. 8, Immature Gran % (Auto) 0.500, Neut % (Auto) 84.6 H, Lymph % (Auto) 8.6 L, Forrest % (Auto) 6.3, Eos % (Auto) 0.0, Baso % (Auto) 0.0, Absolute Neuts (auto) 16.9 H, Absolute Lymphs (auto) 1.72, Nucleated RBC % 0 Radiography Diagnostic Testing: Radiology Impression [place] Node 11/12/22 07:45 IMPRESSION: 1.1 mCi of technetium labeled SULFA colloid was injected subcutaneously in 4 equal aliquots for sentinel node imaging. The patient tolerated the procedure well. Electronically Signed: Javier Sinclair MD at 9:05 EST , [place] Node 11/12/22 07:45 IMPRESSION: 1.1 mCi FDG. The gallbladder was injected subcutaneously in the periareolar region for sentinel node imaging. Electronically Signed: Javier Sinclair MD at 9:03 EST , Physical Exam Narrative Bilateral mastectomy incisions healing well with Steri-Strips dressings clean dry and intact, JPs x4 sanguinous, some bruising to the left axillary skin. Resp normal respiratory effort Cardio regular rate GI GI Narrative: Abdomen: Soft, nondistended Assessment & Plan Assessment/Plan (1) S/P bilateral mastectomy: (2) History of lymph node dissection of axilla: (3) Invasive ductal carcinoma of left breast: (4) Invasive lobular carcinoma of right breast in female: PLAN: Plan Patient is tolerating p.o. Pain is controlled with Tylenol. Follow-up in the office either tomorrow or Thursday for 1 of 2 HUEY removals on each side. White blood count 20 likely postoperative HUEY teaching prior to discharge. Erum Villegas M.D. Pager: [phone] [facility] [address] [place] [address], [facility], [address] [place] [address] Office: [phone]
[2022-11-13 07:58] VITALS: BP 140/55; PULSE 77; RESP 18; TEMP 37.2; O2SAT 98
--- NOTE | 2022-11-13 08:33 | DCINST_ITS ---
Discharge Instructions Procedure Breast Surgery Diet Discharge Diet: No restrictions Activity Discharge Activity: May Not Drive (while taking narcotic pain meds.) May shower in (days): 1 Lifting Restrictions: 10 pounds for 2 weeks on the right Dressing / Incision Call your doctor if your incision/area has: Continuous Slow Oozing, Sudden Increased Bleeding, Increased Pain/ Swelling and Increased Redness Call your doctor if you observe: Fever of 101 or Higher Suture Line Care: Avoid Pulling/Pushing Change Dressing in: 2 days (ok to replace with gauze near steris but don't need--JUAN PABLO wrap ) Additional Dressing/Incision Instructions:: ok to remove JUAN PABLO Wrap for redressing but replace JUAN PABLO wrap after. Strip HUEY twice daily- empty and record when 1/2 full or PRN. Follow Up Care Please Follow Up With: Erum Villegas MD When: Please call [phone] for an appointment to be seen Thursday or Thursday for HUEY removal Test Results: Test results from this visit will be discussed in further detail at your follow- up appointment, if applicable. Discharge Plan Admission Admit Date/Time: 11/12/22 14:35 Attending Provider: Erum Villegas Primary Care Provider: Shonda Stinson Discharge Orders/Prescriptions Prescriptions: New tramadol 50 mg tablet 50 - 100 mg PO Q6H PRN (Reason: pain) 2 Days Qty: 7 0RF Continued multivitamin Tablet 1 tab PO DAILY echinacea 400 mg Capsule 400 mg PO DAILY Rx Instructions: administer with meals calcium carbonate-vitamin D3 [Calcium 500 + D] 500 mg-10 mcg (400 unit) Tablet 1 tab PO DAILY Referrals / Follow Up: Shonda Stinson MD [Primary Care Provider] - Disposition Disposition (needs filled in before D/C Order can be placed): Home, Self Care
--- NOTE | 2022-11-13 08:41 | PHA.DC.MR ---
Pharmacy Service has performed discharge medication reconciliation for this patient. The patient's discharge medication list was reviewed for discrepancies and discrepancies were resolved. Home Medications calcium carbonate 500 mg-vitamin D3 10 mcg (400 unit) tablet (Calcium 500 + D) 1 tab PO DAILY 11/05/22 echinacea 400 mg capsule 400 mg PO DAILY 11/05/22 multivitamin 1 tab PO DAILY 11/05/22 tramadol 50 mg tablet 50 - 100 mg PO Q6H PRN pain 2 days #7 tabs 11/13/22
[2022-11-13 08:48] VITALS: RESP 18
--- NOTE | 2022-11-13 10:03 | NURSING ---
Drain care and emptying teaching done with spouse . He verbalize understanding with care.
--- NOTE | 2022-11-13 10:10 | CASEMGMT ---
KATIE MENDOZA DC Planning Assessment: Face to Face with patient for initial transition planning/care coordination assessment. PAULA MENDOZA introduced self and role at [facility], pt voices understanding.Pt sitting up on chair, alert and oriented x4 with spouse and daughter at bedside. Pt agreeable to participating in assessment with family present. Care providers, pharmacy,?and demographics verified. ? Admitting dx: bilat mastectomy PCP:Shantell Specialists: none Preferred Pharmacy: [facility] Insurance: [place] Prescription Benefit: yes? Living Will/HPOA: none but is interested in completing these documents. JENS Andres notified. LNOK: spouse Boni Living Arrangements: Pt lives with her spouse in a two story home with bedroom and bathroom on the second floor. There are two steps to enter also. Pt denies any concerns with navigating steps. Pt reports to be independent with all ADLs including self care and household tasks. Transportation: pt drives and family is able to assist as needed DME: has a built in seat in the shower and grab bars. SNF/HHC: denies previous ? Plan: Pt plans to return home at discharge with the support of her family. Pt's spouse will assist her with emptying the HUEY drains and both deny any concerns with this need. Pt denies any additional needs or concerns at this time. No additional needs identified. Yoav Leroy RN CM
--- NOTE | 2022-11-13 10:31 | CASEMGMT ---
Social Work SW received referral for Advance Directives. SW met with pt and introduced self and role of SW. Pt, Pt spouse and pt dgt in room. SW explained Living will and Health Care POA. Pt appreciative of information. Choosing not to complete documents at this time but would like to take them home to review. SW provided blank documents and AD rack card. Pt aware she can make appointment for outpt visit with SW to complete documents. JENS Muse
[2022-11-13 10:39] VITALS: BP 141/78; PULSE 90; RESP 18; TEMP 37.2; O2SAT 98
== END 2022-11-13 10:52 | disposition home or self-care (01) ==
LOC: SDC 16:02 → MS3 16:02
PROVIDERS: Admitting Provider Surgery; PCP Family Medicine; Referring Provider Surgery; Visit Provider Surgery
PROC: (CPT 19307; principal; 2022-11-12 09:45)
DX: C50.912 Malignant neoplasm of unspecified site of left female breast (principal); C77.3 Secondary and unspecified malignant neoplasm of axilla and upper limb lymph nodes; C50.911 Malignant neoplasm of unspecified site of right female breast; Z17.0 Estrogen receptor positive status [ER+]; K21.9 Gastro-esophageal reflux disease without esophagitis; M41.9 Scoliosis, unspecified
CPT/HCPCS: 19303; 38525; 00400; 36415; 38792; 85025; 88305; 88307; 88331; 88341; 88342; 93005; 94668; 96360; 96361; 99221; 99252; A9541; J7120; G0378; G0463; J2405; J3475; J3490; Q9968

== ENCOUNTER → 2022-12-04 | Outpatient (CLI) | payer BC, SELFPAY ==
--- NOTE | 2022-12-04 06:44 | CT_ITS ---
STUDY: CT CHEST, ABDOMEN T PELVIS WITH CONTRAST REASON FOR EXAM: Female, 57 years old. STAGING BREAST CA-IV ONLY. Patient has a history of bilateral mastectomy with bilateral lymph node dissection. RADIATION DOSAGE (If Supplied By Facility): CTDIvol = ( 15.68 ) mGy, DLP = ( 1500.44 ) mGycm TECHNIQUE: Transaxial imaging was performed following intravenous administration of IV 100mL Isovue-370. Individualized dose optimization techniques were used for this CT. COMPARISON: No relevant priors. FINDINGS: CHEST Heterogeneous enlargement in appearance of the left lobe of the thyroid gland with a substernal extension. Mild degree of heterogeneity of the right lobe of the thyroid. The patient is status post bilateral lumpectomy and bilateral axillary node dissection. Findings suggest some residual 1.6 cm lymph node in the left axilla. The lungs are normal. There is no demonstrated pleural abnormality. Normal heart and pericardium. Normal mediastinum. Normal hilar regions. Normal unenhanced pulmonary arteries. Normal aorta arch and descending thoracic aorta. Dextroscoliosis. Diffuse fatty infiltration of the liver. ABDOMEN There is decreased attenuation of the liver consistent with steatosis. Normal gallbladder and extrahepatic biliary system. Normal spleen. Normal pancreas. Normal bilateral adrenal glands. Normal right kidney. Normal left kidney. Normal visualized stomach. Normal small intestine. Normal colon. The appendix is visualized and appears normal. There is scattered atherosclerotic calcification of the abdominal aorta, without a demonstrated aneurysm. Normal inferior vena cava. Normal retroperitoneum. There is a small umbilical hernia containing fat. Normal osseous structures. PELVIS Normal urinary bladder. The patient is status post hysterectomy. Normal visualized small intestine. Normal visualized colon. There is no pelvic fluid. There is no pelvic lymphadenopathy or mass lesion. Normal visualized pelvic arteries. Normal abdominal wall. Normal osseous structures. CT/CT Chest, Abd, Pel w/Contrast IMPRESSION: Diffuse fatty infiltration of the liver. Status post bilateral mastectomy and No dissection. Findings suggestive of a residual 1.6 cm lymph node in the left axilla. Diffuse enlargement of the thyroid gland worse on the left side with a substernal extension. Electronically Signed: Javier Sinclair MD at 14:27 EST ,
== END | disposition home or self-care (01) ==
LOC: CT 06:43
PROVIDERS: PCP Family Medicine; Visit Provider Internal Medicine Medical Oncology
DX: C50.211 Malignant neoplasm of upper-inner quadrant of right female breast (principal); E04.9 Nontoxic goiter, unspecified; K76.0 Fatty (change of) liver, not elsewhere classified; Z90.13 Acquired absence of bilateral breasts and nipples
CPT/HCPCS: 71260; 74177; Q9967

== ENCOUNTER → 2022-12-08 | Outpatient (CLI) | payer BC, SELFPAY ==
--- NOTE | 2022-12-08 08:28 | NM_ITS ---
CLINICAL: 57-year-old female with history of carcinoma of the breast. WHOLE BODY 99m Tc MDP RADIONUCLIDE BONE SCINTIGRAPHY COMPARISON: None available FINDINGS: Following the intravenous administration of 26.1 mCi of 99m Tc MDP, whole body bone images reveal: 1. Enhanced radiopharmaceutical concentration is defined in the acromioclavicular compartments of both shoulders, the lateral tibial compartment of the left knee, the visualized left wrist, the fifth lumbar vertebra posteriorly on the right. 2. The remaining skeletal structures are scintigraphically unremarkable with normal-appearing renal images and urinary bladder activity identified. A thoracolumbar scoliosis is defined. NM/Bone Scan Whole Body IMPRESSION: 1. Increased tracer uptake noted in the bilateral shoulders, the left knee, the left wrist and fifth lumbar vertebra is most consistent with degenerative arthrosis. 2. There is no definitive scintigraphic evidence of diffuse axial skeletal metastatic disease on the current examination. Electronically Signed: Albert Lee, at 22:55 EDT ,
== END | disposition home or self-care (01) ==
LOC: NM 08:27
PROVIDERS: PCP Family Medicine; Visit Provider Internal Medicine Medical Oncology
DX: C50.112 Malignant neoplasm of central portion of left female breast (principal)
CPT/HCPCS: 78306; A9503

== ENCOUNTER → 2022-12-16 | Outpatient (CLI) | payer BC, SELFPAY ==
--- NOTE | 2022-12-16 12:22 | US_ITS ---
STUDY: ULTRASOUND BREAST - LEFT REASON FOR EXAM: Female, 57 years old. Left axillary lump. The patient is status post bilateral mastectomy with bilateral lymph node dissection. TECHNIQUE: Axial and longitudinal images of the LEFT breast were performed with a high resolution ultrasound transducer. # OF IMAGES: 26 COMPARISON: None. FINDINGS: LEFT Breast: The axillary lump corresponds to a 2.1 cm x 1.3 cm x 1.5 cm anechoic fluid structure. This most likely represents a small postoperative seroma. US/Breast Limited Unilateral IMPRESSION: 2.1 cm x 1.3 cm x 1.5 cm anechoic fluid structure in the left axillary region as described. This most likely represents a small seroma. ASSESSMENT CATEGORY: BIRADS Category 2: Benign. A letter regarding these results will be sent to the patient by the facility within 30 days. Electronically Signed: Javier Sinclair MD at 12:52 EDT ,
--- NOTE | 2022-12-16 12:22 | US_ITS ---
ACR Level 3 findings have been noted. An addendum which confirms receipt of the report will follow. INDICATION: abnormal chest ct EXAMINATION: US Thyroid (eg thyroid, parathyroid, parotid) TECHNIQUE: Villafana scale and color doppler imaging was performed of the thyroid gland. COMPARISON: None. FINDINGS: RIGHT THYROID LOBE: Measures 5.2 x 1.8 x 2 cm. Homogeneous echotexture with normal vascularity. [No thyroid nodules are present. No discrete nodules. LEFT THYROID LOBE: Measures 6.4 x 2.2 x 2.5 cm. Homogeneous echotexture with normal vascularity. [No thyroid nodules are present. There is a 4.1 x 4.2 x 3.3 cm ill-defined mostly solid heterogeneously hypoechoic wider than tall mass in the lower pole. ISTHMUS: Measures 3 mm. There is a 2.1 x 1.6 x 1.6 cm ill-defined mostly solid wider than tall heterogeneously hypoechoic mass in the isthmus. US/Thyroid IMPRESSION: Multinodular goiter: -4.2 cm TI-RADS 4 nodule in the left thyroid lobe is moderately suspicious. Recommend FNA. -2.1 cm TI-RADS 4 nodule in the isthmus is moderately suspicious. Recommend FNA. Electronically Signed: Jimi Hyde MD at 19:53 EDT ,
== END | disposition home or self-care (01) ==
LOC: US 12:21
PROVIDERS: PCP Family Medicine; Referring Provider Surgery; Visit Provider Surgery
DX: N63.20 Unspecified lump in the left breast, unspecified quadrant (principal); R93.89 Abnormal findings on diagnostic imaging of other specified body structures
CPT/HCPCS: 76536; 76642

== ENCOUNTER → 2022-12-25 | Outpatient (CLI) | payer BC, SELFPAY | END | disposition home or self-care (01) | LOC: LABSPEC 16:41 | PROVIDERS: PCP Family Medicine; Referring Provider Surgery; Visit Provider Surgery | DX: E04.1 Nontoxic single thyroid nodule (principal) ==

== ENCOUNTER → 2022-12-26 | Outpatient (CLI) | payer BC, SELFPAY ==
--- NOTE | 2022-12-25 | FLU_PTH ---
PATIENT: KAVEH MORAN LOC: [facility]#:[id number] AGE/SX: 57/F ROOM: RE12/26/[address]: Dr. Atilio Nathan MD : 1965 BED: DIS: 12/26/2022 SPEC #: [id number] RECD: 12/25/22 16:34 STATUS: MIRANDA ISIDRO #: [id number] MILY: 12/25/22 00:[address]: Atilio Nathan DEPT: CYTOLOGY RECD BY: Geovani Ramirez ENTERED: 12/26/22 10:16 SP TYPE: Fluid OTHR DR: Dr. Shonda Stinson MD Tissues: A - Thyroid gland, NOS B - Thyroid gland, NOS C - Thyroid gland, NOS D - Thyroid gland, NOS E - Thyroid gland, NOS Procedures: Special Stain Group II Surgery Specimen Level IV Cytospin Fluid HEADER OPERATION: Fine needle aspiration of left thyroid nodule, right thyroid nodule and isthmus PRE-OP DIAGNOSIS: Thyroid nodules TISSUE SUBMITTED: A ? Left thyroid nodule tissue, B - Isthmus tissue, C ? Isthmus tissue x4 slides, D ? Right thyroid nodule tissue, E - Right thyroid nodule tissue x8 slides DIAGNOSIS CYTOLOGY A. Left thyroid nodule fluid, fine needle aspiration (cytospin and cell block): Consistent with benign follicular/colloid nodule (Mills Category II). See comment. B. Isthmus nodule fluid, fine needle aspiration (cytospin and cell block): Consistent with benign follicular/colloid nodule with focal cystic changes (Mills Category II). Adequate for evaluation. See comment. C. Isthmus nodule, fine needle aspiration (smears): Consistent with benign follicular/colloid nodule with focal cystic changes (Mills Category II). Adequate for evaluation. See comment. D. Right thyroid nodule fluid, fine needle aspiration (cytospin and cell block): Consistent with benign follicular/colloid nodule with focal cystic changes (Mills Category II). Adequate for evaluation. See comment. E. Right nodule, fine needle aspiration (smears): Consistent with benign follicular/colloid nodule with focal cystic changes (Mills Category II). Adequate for evaluation. See comment. SJ:rg 12/29/2022 COMMENT Correlation with clinical, radiologic findings and appropriate follow up are necessary. CYTOLOGY STUDY Slides are reviewed. CYTOLOGY GROSS A - Received is 15 ml of red cloudy fluid labeled with the patient's name and and designated per the requisition as left thyroid nodule tissue. Submitted for cytology preparation including cell block. B - Received is 15 ml of red cloudy fluid labeled with the patient's name and and designated per the requisition as isthmus tissue. Submitted for cytology preparation including cell block. C - Received are four smears labeled with the patient's name and designated per the requisition as isthmus tissue. Submitted for staining. D - Received is 15 ml of red cloudy fluid labeled with the patient's name and and designated per the requisition as right thyroid nodule tissue. Submitted for cytology preparation including cell block. E - Received are eight smears labeled with the patient's name and designated per the requisition as right thyroid nodule tissue. Submitted for staining. / adeel 12/26/2022 TC:5 CPT: 91560 x5, 50637 x3
[2022-12-26 11:13] LABS: Free T3 2.8 pg/mL (2.18-3.98); T4 Total, Thyroxin 13.7 ug/dL (4.8-13.9)
[2022-12-27 14:19] LABS: Thyroid Peroxidase AB < 9 IU/mL (0-34)
== END | disposition home or self-care (01) ==
LOC: PAVLAB 08:55
PROVIDERS: PCP Family Medicine; Referring Provider Surgery; Visit Provider Surgery
DX: E04.2 Nontoxic multinodular goiter (principal)
CPT/HCPCS: 36415; 84436; 84443; 84481; 86376; 88108; 88305; 88313

== ENCOUNTER 2023-03-24 14:30 | Outpatient (RCR) | payer BC, SELFPAY ==
--- NOTE | 2023-03-04 12:42 | HP.OTEVAL ---
Patient's Visit Information KAVEH MORAN is a 58 year old F, referred to Occupational Therapy by KARISSA Fishman, with a diagnosis of - Malignant neoplasm of unspecified site of right/left female breast. Date of Evaluation: 03/03/23 Occupational Therapist: Andie Combs, ERIKA/Darin, CHT - Subjective this 58 year old female was seen for OT eval with dx of C50.911 - Malignant neoplasm of unspecified site of right female breast, C50.912 - Malignant neoplasm of unspecified site of left female breast. pt states she finished her radiation (left side) skin red and sore but otherwise feels good. Pt states she would like to know what she can do to mt. skin tightness and know signs symptoms of lymphedema. pt also likes to travel and would like compression sleeve/glove while flying. pts spouse with pt and agrees to assist as needed. - ROM ROM Comments: pt demo full ROM of BUE - Lymphedema (Circumferential Measure) MCP: right 19.5cm left 19.5cm Wrist: right 16.5cm left 16cm Lower forearm: right 21.5cm left 21cm Largest forearm: right 25cm left 24.5cm Elbow: right 25.4cm left 25.5cm Largest humerus: right 30cm left 29cm Axcillary: right 34cm left 32cm Upper Exremity Comments: pt risk for lymphedema with lymph node removal and radiation - Sensation Sensation Comments: denies - Quick DASH-Disab of Arm,Shoulder& Hand Quick DASH Score: 1.6650 - Goals Demonstrate adequate knowledge of self-massage by 2nd week: Yes Demonstrate adequate knowledge skin care/prec by 2nd week: Yes Demonstrate adequate knowledge therapeutic exercises by d/c: Yes - Rehabilitation General Assessment: Pt demo risk of development of lymphedema, scar adhesions, axillary webbing and limited ROM. Pt would benefit from skilled OT services 2-3 visits to ed. pt on signs/symptoms of lymphedema, beneficial exercise as well as scar mtg and how to perform self manual lymph massage. Pt also ed. on use of compression sleeve and glove with flying. pt demo understanding and agree to POC. pt to call and schedule if she has questions or concerns. Rehabilitation Potential: Good - Anticipated Interventions A/AAROM/PROM, Scar Care, Education re Diagnosis, Education re Life-long lymphedema Management, Education re Skin Care and Precautions, Education re Self Massage Techniques, Education re Correct Donning Tech,Care&Wearing Sched Comp Garments, Caregiver Training, Home Program - Visit Plan Frequency: 1x/Week Duration: 3 Weeks TEXT: Thank you for the opportunity to evaluate your patient. For Medicare and Medicare HMO plans, please review the plan of care and approve it. It will need to be FAXED BACK to us at [phone] for Medicare purposes. Please let me know if there are questions or concerns regarding this plan of care. Physician Signature: Date:
--- NOTE | 2023-05-21 11:22 | HP.OT.NRP ---
Patient Information Patient Information: KAVEH MORAN was seen in my office for initial evaluation on 03/03/23. The following Plan of Care was established for this patient: POC Established Initial Frequency: 1x/Week Initial Duration: 3 Weeks Anticipated Interventions Anticipated Interventions: A/AAROM/PROM, Scar Care, Education re Diagnosis, Education re Life-long lymphedema Management, Education re Skin Care and Precautions, Education re Self Massage Techniques, Education re Correct Donning Tech,Care&Wearing Sched Comp Garments, Caregiver Training and Home Program Last Seen Last Seen: This patient was last seen in our office 03/24/23. Pertinent comments regarding their Occupational therapy will appear below: pt was seen for 2 OT sessions. Pt met OT goals and demo understanding of her HEP. Pt at this time has not scheduled further apts. and is D/C at this time. At this point I will be discontinuing this patient from occupational therapy. I would be happy to see this patient again in the future if found appropriate by the physician. Thank you! Andie Combs, OTR/L, CHT
== END 2023-03-24 19:00 | disposition home or self-care (01) ==
LOC: OT 14:30
PROVIDERS: PCP Family Medicine; Referring Provider Nurse Practitioner Family; Visit Provider Nurse Practitioner Family
DX: C50.911 Malignant neoplasm of unspecified site of right female breast (principal); C50.912 Malignant neoplasm of unspecified site of left female breast; I89.0 Lymphedema, not elsewhere classified
CPT/HCPCS: 97140; 97166; 97530

== ENCOUNTER → 2023-06-30 | Outpatient (CLI) | payer BC, SELFPAY ==
--- NOTE | 2023-06-30 06:58 | EKG12_ITS ---
Test Reason : PRE OP Blood Pressure : / mmHG Vent. Rate : 103 BPM Atrial Rate : 103 BPM P-R Int : 134 ms QRS Dur : 074 ms QT Int : 342 ms P-R-T Axes : 065 -06 074 degrees QTc Int : 448 ms Sinus tachycardia with occasional Premature ventricular complexes Low voltage QRS Nonspecific ST abnormality Abnormal ECG Confirmed by JACOB ESCALANTE, VIRGIL ([id number]), international editorial producer ORACIO MALDONADO ([id number]) on 06/30/2023 2:10:53 PM Referred By: Atilio Nathan Confirmed By:VIRGIL JAMES MD
== END | disposition home or self-care (01) ==
LOC: PAT 08-07 07:55
PROVIDERS: PCP Family Medicine; Referring Provider Surgery; Visit Provider Surgery
DX: Z01.818 Encounter for other preprocedural examination (principal)
CPT/HCPCS: 93005

== ENCOUNTER 2023-08-25 05:53 | Day surgery (SDC) | payer OTHER, SELFPAY ==
[2023-08-25] VITALS (7 sets, daily range): BP systolic 129–168; BP diastolic 80–97; PULSE 79–111; RESP 16; TEMP 36.2–36.9; O2SAT 92–97; BMI 35.0
--- NOTE | 2023-08-25 | THYROID_PTH ---
PATIENT: KAVEH MORAN LOC: [facility] [place] U#:[id number] AGE/SX: 58/F ROOM: RE08/25/[address]: Dr. Atilio Nathan MD : 1965 BED: DIS: 08/25/2023 SPEC #: [id number] RECD: 08/25/23 08:53 STATUS: MIRANDA RETd #: [id number] MILY: 08/25/23 00:[address]: Atilio Nathan DEPT: SURGICAL PATHOLOGY RECD BY: Nancy Rankin ENTERED: 08/25/23 09:39 SP TYPE: THYROID OTHR DR: Dr. Shonda Stinson MD Tissues: A - Thyroid gland, NOS B - Thyroid gland, NOS Procedures: Frozen Section (charge) Surgery Specimen Level V HEADER OPERATION: Left thyroid lobectomy with isthmus PRE-OP DIAGNOSIS: Multiple thyroid nodules TISSUE SUBMITTED: A - Thyroid tissue, rule out thyroid mass, frozen section, B - Right isthmus nodule - short stitch, superior thyroid pole - long stitch FROZEN SECTION DIAGNOSIS A. Left thyroid nodule, excision: Colloid nodule with degenerative and focal adenomatous change. AM:adeel 08/25/2023 MICROSCOPIC DIAGNOSIS A. Thyroid tissue, excision: Colloid nodule with focal adenomatous and degenerative change. B. Left lobe and isthmus, partial thyroidectomy: Colloid nodule with focal adenomatous and degenerative change. Portions of benign parathyroid tissue. AM:adeel 08/26/2023 MICROSCOPIC DESCRIPTION Slides are reviewed. GROSS DESCRIPTION A - Received fresh for frozen section consultation labeled with the patient's name is a specimen designated left inferior thyroid nodule. The specimen consists of a large fragment of rubbery, pink-santoyo soft tissue measuring 4.5 x 3.0 x 2.75 cm and weighing 18.1 gm. The external surface is inked and serially sectioned to reveal homogenous, gelatinous cut surfaces. A community health representative section is submitted for frozen section consultation. Additional community health representative sections are submitted in cassettes 2-6. B - Received in fixative is one container labeled with the patient's name and designated isthmic nodule and left thyroid lobe. The specimen designated isthmic nodule measures 2.5 x 2.5 x 1.3 cm and weighs 4.2 gm. This fragment is inked in black ink. The fragment designated left lobe measures 4.5 x 3.0 x 1.4 cm and weighs 6.5 gm. The superior tip of this fragment is inked in red ink. The entire anterior surface is inked in blue ink and the posterior surface is inked in green ink. Serial sections of the left lobe do not reveal distinct mass lesion. The specimen is serially sectioned and totally submitted in seven cassettes as follows: 1-3 - isthmus, 4-7 - left lobe of thyroid. / AM:adeel 08/25/2023 TC:1 CPT: 27731 x2, 33104
[2023-08-25] MEDS: Lactated Ringers 1,000 ML 15 ML IV (06:32)
--- NOTE | 2023-08-25 07:31 | HP.PCM_ITS ---
History and Physical Date of Admission: 08/25/23 MR#: [id number] Acct: [id number] Name: KAVEH HERRERA Rep #: [id number] : 1965 Provider: Dr. Atilio Nathan MD Age/Sex: 58/F Location: [facility] Status: Signed Intake Vital Signs 05/28/2314:11 06/10/2308:26 Height 5 ft 4 in 5 ft 4 in Weight: 201 lb 7 oz 201 lb BMI 34.5 34.4 BP 146/88 H 144/77 H Blood Pressure Location Rt brachial Rt brachial Position Sitting Sitting Respiration 16 16 Pulse 68 Pulse Source Monitor Temp 98.3 F Pulse Oximetry (%) 100 Oxygen Delivery Method room air Intake Visit Reasons: DISCUSS POSSIBLE THYROID SURGERY Chief Complaint: discuss thyroid surgery Community Youth Secretary Required: No Is patient in pain?: No Allergies No Known Allergies Allergy (Verified 06/10/23 08:27) Medications calcium carbonate 500 mg-vitamin D3 10 mcg (400 unit) tablet (Calcium 500 + D) 1 tab PO DAILY 11/05/22 [History Confirmed 06/10/23] echinacea 400 mg capsule 400 mg PO DAILY 11/05/22 [History Confirmed 06/10/23] multivitamin 1 tab PO DAILY 11/05/22 [History Confirmed 06/10/23] silver sulfadiazine 1 % topical cream 1 applic topical BID #85 grams 02/12/23 [Rx Confirmed 06/10/23] tamoxifen 20 mg tablet 20 mg PO DAILY #90 tabs 05/28/23 [Rx Confirmed 06/10/23] fexofenadine 180 mg tablet mg PO 06/10/23 [History Confirmed 06/10/23] PFSH Medical History Abnormal chest CT Encounter for education Gastric reflux History of stress test 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 of right breast in female Kidney stone Left breast lump Multiple thyroid nodules Non-smoker Post-menopausal Scoliosis Thyroid nodule Wears glasses Wears partial dentures Surgical History History of bilateral breast biopsy (~09/2022) History of lymph node dissection of axilla History of partial hysterectomy Hx of exploratory laparotomy Hx of shoulder surgery S/P bilateral mastectomy Family History Mother CancerSister Thyroid disorder Cancer Social History Smoking Status: Never smoker alcohol intake: current alcohol intake frequency: a few times a month substance use type: does not use HPI HPI HPI: Patient is a 57-year-old female who presents for thyroid nodules. They are referred for surgical consultation from Dr. Villegas. This was discovered incidentally during routine staging CT imaging for patient's recent diagnosis of breast cancer. 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 Last visit was 12/25/2022. She presents today with her . She continues to deny most compressive symptoms?including no cough, no swallowing difficulties, and no hoarseness. Once again her mentions that he believes her snoring has become progressive. She also states that she always feels like something is stuck in her neck. Below is recapitulated from patient's consultation visit for ease of review: They do admit to some experience of difficulty with swallowing. However, they qualify this stating that this has been present for years and has not been necessarily progressive. They do not complain of a new cough. They do not appreciate new voice changes. They do have a history of snoring. Patient's , who accompanies her to today's visit, states she believes that the snoring has become somewhat more pronounced since her bilateral mastectomy?patient quickly explains this stating that she is now sleeping on her back whereas previously she was a side sleeper. Additionally, their weight has been stable, despite some attempts at weight loss. There is also a history of recent fatigue, but patient has attributed thi s to the recent stress of her diagnosis and not sleeping well. They do not have a history of heat or cold intolerance, but interestingly reports that they do not sweat normally and instead expressed their body temperature with facial flushing. 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 They do have a family history of thyroid disorders or endocrinopathies. Mrs. Herrera has 3 sisters and she states all 3 of been diagnosed with Landy's thyroiditis. She denies any awareness of cancer diagnosis or any requiring surgery. There are no other endocrine issues of which she is aware. There is no history of prior radiation exposure, but she meets with radiation oncology tomorrow to discuss whether or not she will require this as part of her treatment plan for breast cancer. Previous work-up has included thyroid ultrasound. This was read as a right thyroid lobe that measured 5.2 x 1.8 x 2 cm. Radiology noted twice that there were no thyroid nodules present within this lobe. The left thyroid lobe measured 6.4 x 2.2 x 2.5 cm. They did identify a 4.1 x 4.2 x 3.3 cm nodule of the left inferior pole which they rated as a TI-RADS 4 based on its solid composition and hypoechoic echogenicity. Additionally they identified a 2.1 x 1.6 x 1.6 cm nodule within the isthmus that was also rated as a TI-RADS 4. Given their size, radiology recommended FNA biopsy for both nodules. An FNA has not been performed. Other tests include: [TSH, T3, T4,etc ] ROS General General: No weight change, appetite, fatigue, colon cancer or breast cancer HEENT HEENT: No difficulty swallowing, eye injury, eye surgery, swollen glands or hoarseness Endo Endocrine: No thyroid disease, diabetes mellitus, thyroid cancer, Hair loss, heat intolerance or cold intolerance Skin Skin: No rash or changing moles Breast Breast: Yes abnormal mammogram and abnormal US; No left breast lump, right breast lump, nipple discharge, breast pain or breast enlargement Musc Musculoskeletal: Yes back problems; No arthritis, rheumatoid arthritis, gout or joint pain Cardio Cardiovascular: No murmur, pacemaker, heart disease, atrial fibrillation, high blood pressure, heart attack, heart stent, palpitations, shortness of breat with exertion or chest pain Psych Psychiatric: No depression, anxiety or hearing voices Resp Respiratory: No shortness of breath, No sleep apnea, No cough, No COPD, No asthma, No emphysema and No wheezing Gastro Gastrointestinal: No abdominal pain, No nausea or vomiting, No diarrhea, No constipation, No blood in stool, No acid reflux, No hemorrhoids, No ulcers, No gallbladder problem and No black,tarry stools Jonathan Hematologic: No blood thinners, No blood disorders, No bleeding, No anemia and No blood clots Exam Const General: cooperative, comfortable and no acute distress Orientation: alert, awake and oriented x3 Neck Other: Thyromegaly with thyroid nodularity appreciated. No lymphadenopathy appreciated. Patient's neck is nontender. Mildly positive Radhika sign present. Bedside ultrasound exam was performed and with patient in neck extension I am able to visualize the inferior pole of the left thyroid lobe and a cross-section of the innominate Assessment and Plan Assessment and Plan (1) Multiple thyroid nodules: Status: Acute Comment: This is a 58-year-old female, euthyroid from an endocrine standpoint, who presents for follow-up of incidentally discovered thyroid nodules during staging work-up for recent breast cancer diagnosis. 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 She is status post FNA biopsy of a left-sided, isthmic, and right-sided nodule on November of this year. All 3 returned consistent with benign cytopathology ([place] 2). I held a lengthy conversation with her and her regarding the pros and cons of lobectomy with isthmusectomy versus total thyroidectomy. This conversation was facilitated with a hand drawing of the patient's anatomy as well as review of her sonographic and CT imaging. Additional discussion was held of the procedure?specific risks including recurrent laryngeal nerve injury and parathyroid compromise. It is Mrs. Herrera's desire at to proceed with left thyroid lobectomy and isthmusectomy using intraoperative nerve monitoring. Plan: ? Left thyroid lobectomy with isthmusectomy using intraoperative nerve monitoring. Disposition planned as outpatient procedure I have examined the patient and the H&P has been reviewed. There are no clinical changes since date of exam. She confirms that she has been able to clear the laryngitis she reported prior to her previously planned operation. She has had no further diagnoses. Procedure and post procedure expectations were reviewed. All questions were answered from her and her . I have reiterated that as long as things proceed uneventfully through her case we will plan for outpatient disposition. Will now proceed to the operating room for planned left thyroid lobectomy with isthmusectomy using intraoperative nerve monitoring.
[2023-08-25] MEDS: Bupivacaine 0.25% 30 ML Vial (09:53)
--- NOTE | 2023-08-25 10:18 | PCM.OPRPT ---
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 Post-Operative Diagnosis: Same Surgery/Procedure Performed:: Left thyroid lobectomy with isthmusectomy Surgeon: Atilio Nathan newspaper delivery counselor: Rcik Olivas Type of Anesthesia: General/Supplemental Anesthesiologist: Jaison Stephen Specimen's removed: 1) Left thyroid lobe (stitch white superior pole) 2) Isthmic nodule 3) Rule out thymic mass (frozen section confirms thyroid origin with likely colloid nodule) Estimated Blood Loss (mL): 25 Description of Procedure: After appropriate identification in the preoperative holding area, the patient was brought to the operating room where she was positioned supine on the operating room table. Induction of general endotracheal anesthetic was begun and a NIMS tube was placed under glidescope view to confirm coaptation with the vocal cords anteriorly. Tube was then secured and the patient was positioned with a shoulder roll so that her head was in extension but supported. The Nims electrodes were placed and connected to the monitor. We had appropriate resistance showing on the monitor and tapping at the level of the cricoid produce a graphical representation of the impulse on the monitor. Patient's neck was then prepped and draped in usual sterile fashion and a formal timeout was conducted from those present. The lowest skin fold to the sternal notch was selected for incision site (this resided approximately 2 fingerbreadths cephalad to the notch). An incision was extended for 2 cm on either side of midline initially, but required further extension by approximately 1 cm to the left later in the procedure. Electrocautery was used to deepen this incision through the level of the platysma. Subplatysmal flaps were raised with the use of electrocautery and blunt dissection. The strap muscles were then divided along the medial raphe bringing us down to the level of the thyroid. We were careful to avoid a very engorged anterior jugular vein on the right. Capsular attachments to the thyroid were divided with the use of LigaSure or bluntly swept away with a peanut sponge. Retractors were placed regarding excellent visualization of the superior pole of the thyroid on the left. These vessels were individually isolated with fine blunt dissection and divided with the LigaSure device. Unfortunately as we moved more inferiorly the thyroid demonstrated minimal mobility of the inferior pole. When palpated this inferior pole extended well inferior to the thoracic outlet posterior to the clavicular head. To improve mobility I ligated several polar vessels adjacent the gland and the anterior surface of the trachea. Additionally I was able to develop a plane beneath some remaining fibers of the sternothyroid muscle and the capsule and divided this tissue with Ligasure as well. The inferior parathyroid gland was grossly visualized and preserved with the division of the polar vessels. With the poles freed I bluntly palpated deeply against the inferiormost extent of the gland directly adjacent capsule and was able to feel easy separation of areolar tissue from the deeper innominate vessel. In fact, once these attachments were freed I was able to deliver the entire nodule into the incision. Surprisingly it did not appear to have any significant connections to the left thyroid lobe. Given this unexpected result and the location of this lesion I wanted to exclude a possible thymic neoplasm so I submitted the nodule to pathology for frozen section. For the meantime I continued medialization of the left thyroid lobe and bluntly developed the dissection of the trachoesophageal groove. As I did so I identified a pearlescent structure that appeared to represent the left recurrent laryngeal nerve. Indeed, applying our NIMS probe I was able to confirm a signal from this structure. The nerve positively identified, I very carefully divided several small vessels that crossed this area more superficially and appeared to terminate in the gland. Then I relieved the attachments of the thyroid gland to the underlying trachea thyroid cartilage at the ligament of Negron with the use of LigaSure. In the cephalad portion of the incision, I looked for any signs of a pyramidal lobe but found none. About this time I received word from pathology that our frozen section demonstrated simple adenomatous changes of a colloid nodule of thyroid etiology. Pathology confirmed there is no suggestion of malignancy. Therefore, once I had assured clearance from the nerve, the remaining thyroid tissue was removed from the anterior surface of the trachea with electrocautery to include the entirety of the thyroid isthmus. Preoperatively I had identified a isthmic nodule that was benign by cytopathology from fine needle aspiration yet it was targeted for resection with today's procedure. Therefore, I made sure to widen my isthmic resection to include this nodule which meant resecting the very medialmost portion of the right thyroid lobe. Unfortunately during this resection the lobe was inadvertently avulsed from the isthmus with retraction. Upon recognizing this, the isthmic specimen was fully dissected from the underlying trachea and divided with the LigaSure device for hemostasis. Before the specimen was fully passed off the field for permanent section it was marked with a suture designating the superior pole of the left thyroid lobe as well as the isthmic nodule. Pressure was applied to the surgical cavity and there was some slight oozing along the anterior surface of the trachea well away from the recurrent laryngeal nerve where selective electrocautery was applied. Closer to the nerve there was some additional oozing and Surgicel hemostatic agent was placed while pressure was applied. Once this pressure was relieved, the surgical cavity was again inspected and we found hemostasis to be intact. We also confirmed the presence of both the superior and inferior parathyroid gland as well as a well-functioning recurrent laryngeal nerve. Satisfied with this result, the strap muscles were closed with a running 3-0 Vicryl stitch leaving a small gap at the inferior aspect of the suture line. The platysmal flaps were closed with interrupted 3-0 Vicryl. Some additional local anesthetic was infiltrated throughout the dermis and the skin was closed in a subcuticular fashion using 4-0 Monocryl. Steri-Strips were applied. Opsite used as a dressing. The patient was then awakened from anesthetic without event and was taken to PACU for ongoing recovery. Complications None Admit VTE Documentation VTE Mechan Device Prophylaxis: SCD's
--- NOTE | 2023-08-25 10:47 | DCINST_ITS ---
Discharge Instructions Diet Discharge Diet: No restrictions (However recommend a liquid to soft diet initially postoperatively) Activity Discharge Activity: May Not Drive (While it remains difficult to check blind spots quickly) May shower in (days): 2 Ice area for (Minutes): 20 Lifting Restrictions: No lifting greater than 15 pounds for 2 weeks after surgery Dressing / Incision Call your doctor if your incision/area has: Continuous Slow Oozing, Sudden Increased Bleeding, Increased Pain/ Swelling, Increased Redness and Swelling at the incision site Call your doctor if you observe: Numbness or Tingling Remove Dressing in: 2 days (Please leave Steri-Strips intact until they fall off spontaneously or are taken off at your follow-up visit) Cleanse incision/area with: Soap & Water Follow Up Care Please Follow Up With: Atilio Nathan MD When: 7-10 days postop Test Results: Test results from this visit will be discussed in further detail at your follow- up appointment, if applicable. Discharge Plan Admission Primary Reason for Your Visit: Thyroid lobectomy Attending Provider: Atilio Nathan Primary Care Provider: Shonda Stinson Discharge Orders/Prescriptions Prescriptions: Continued multivitamin Tablet 1 tab PO DAILY calcium carbonate-vitamin D3 [Calcium 500 + D] 500 mg-10 mcg (400 unit) Tablet 1 tab PO DAILY tamoxifen 20 mg tablet 20 mg PO QHS Referrals / Follow Up: Shonda Stinson MD [Primary Care Provider] - Disposition Disposition (needs filled in before D/C Order can be placed): Home, Self Care
[2023-08-25] MEDS: Acetaminophen 325 MG Tablet 650 MG PO (12:55)
== END 2023-08-25 13:15 | disposition home or self-care (01) ==
LOC: SDC 05:54 → AC 05:54
PROVIDERS: PCP Family Medicine; Referring Provider Surgery; Visit Provider Surgery
PROC: (CPT 60210; principal; 2023-08-25 07:15)
DX: E04.2 Nontoxic multinodular goiter (principal)
CPT/HCPCS: 60210; 00320; 88307; 88331; A4648; J7120; J2405

== ENCOUNTER → 2023-08-28 | Outpatient (CLI) | payer OTHER, SELFPAY ==
[2023-08-28 12:25] LABS: PTHIN < 6.3 pg/mL (18.4-80.1)
== END | disposition home or self-care (01) ==
PROVIDERS: PCP Family Medicine; Referring Provider Surgery; Visit Provider Surgery
DX: E89.0 Postprocedural hypothyroidism (principal)
CPT/HCPCS: 36415; 82310; 83970

== ENCOUNTER → 2023-10-07 | Outpatient (CLI) | payer OTHER, SELFPAY ==
--- OUTSIDE RECORDS SUMMARY | 2023-09-02 15:21 | XMS RPT_ITS | CCD ---
Author Name Unknown Address [address] [place] [address] Organization [facility] Care Team Providers Care High Lift Operator Name Role Phone Fast DO, Jade Rod Unavailable Monik Turner Unavailable Unavailable Hayley Pate Unavailable Unavailable General Education Professor, System Unavailable Unavailable Krissy Russell CMA Unavailable Unavailable Unavailable Unavailable Medications Completed/Discontinued Medications Medication Drug Class(es) Dates Sig (Normalized) Sig (Original) amoxicillin 875 mg / clavulanate 125 mg oral tablet (2 sources) Penicillin-class Antibacterial Start: 04-30-2015 End: 05-10-2015 take 1 tablet by mouth twice daily AUGMENTIN, 875-125MG (Oral Tablet) 1 (one) Tablet bid for 10 days Quantity: 20 {Tablet} Refills: 0 Ordered: 30-Apr-2015 Krissy Russell CMA Start : 30-Apr-2015 End : 10-May-2015 Inactive Problems Active Problems Problem Classification Problem Date Documented Da te Episodic/Chronic Abdominal pain (2 sources) Pain in pelvis Episodic Deficiency and other anemia (1 source) Other vitamin B12 deficiency anemia; Translations: [ANEMIA, VITAMIN B12 DEFICIENCY NEC] 04-27-2015 Episodic Disorders of lipid metabolism (4 sources) Hyperlipidemia; Translations: [Hyperlipidemia] 07-03-2015 Chronic Past or Other Problems Problem Classification Problem Date Documented Da te Episodic/Chronic Deficiency and other anemia (7 sources) Deficiency and other anemia Unclassified (3 sources) b12 deficiency 04-27-2015 Unclassified (1 source) Deliveries (Parity); Translations: [Deliveries (Parity)] 04-27-2015 Results Test Name Value Interpretation Reference Range Facil ity Vital Signs Date Time Vital Sign Value Performing Clinician Facility 04-27-2015 10:10-0400 Respiratory rate 16 /min Jade Viola Fast DO Work Phone: [email or web address]; [facility] Work Phone: 04-27-2015 09:36-0400 Body height 161.[address] [facility]; [facility] Work Phone: 04-27-2015 09:36-0400 Body mass index (BMI) [Ratio] 32.35 kg/m2 [facility]; [facility] Work Phone: 04-27-2015 09:36-0400 Body surface area Derived from formula 1.[address] [facility]; [facility] Work Phone: 04-27-2015 09:36-0400 Body temperature 97.5 [degF] [facility]; [facility] Work Phone: 04-27-2015 09:36-0400 Body weight 84.[address] [facility]; [facility] Work Phone: 04-27-2015 09:36-0400 Diastolic blood pressure 70 mm[Hg] [facility]; [facility] Work Phone: Encounters Encounter Date Encounter Type Care Provider Facility Start: 04-30-2015 End: 04-30-2015 Phone Encounter Jade Fast DO Work Phone: [facility] Start: 04-27-2015 End: 04-29-2015 Office outpatient visit 25 minutes Jade Fast DO Work Phone: [facility] Start: 08-23-2014 End: 08-23-2014 Phone Encounter Jade Fast DO Work Phone: [facility] Start: 06-12-2014 End: 06-12-2014 Office outpatient visit 5 minutes Jade Fast DO Work Phone: [facility] Start: 05-31-2014 End: 06-02-2014 Office outpatient visit 25 minutes Jade Fast DO Work Phone: [facility] Start: 05-19-2014 End: 05-19-2014 Phone Encounter Jade Fast DO Work Phone: [facility] Start: 05-12-2014 End: 05-14-2014 Periodic preventive med est patient 40-64yrs Jade Fast DO Work Phone: [facility] Start: 12-14-2012 End: 12-14-2012 Annotation/Addendum Jade Fast DO Work Phone: [facility] Start: 12-09-2012 End: 12-09-2012 Patient encounter procedure Jade Fast DO Work Phone: [facility] Start: 01-28-2011 End: 01-28-2011 Patient encounter procedure Jade Fast DO Work Phone: [facility] Start: 09-24-2010 End: 09-25-2010 Patient encounter procedure Jade Fast DO Work Phone: [facility] Start: 08-06-2010 End: 08-06-2010 Patient encounter procedure Jade Fast DO Work Phone: [facility] Start: 07-30-2010 End: 08-01-2010 Patient encounter procedure Jade Fast DO Work Phone: [facility] Start: 07-02-2010 End: 07-09-2010 Patient encounter procedure Jade Fast DO Work Phone: [facility] Start: 06-24-2010 End: 06-24-2010 Patient encounter procedure Jade Fast DO Work Phone: [facility] Start: 06-17-2010 End: 06-17-2010 Patient encounter procedure Jade Fast DO Work Phone: [facility] Start: 11-13-2009 End: 11-14-2009 Patient encounter procedure Jade Fast DO Work Phone: [facility] Start: 10-24-2009 End: 10-24-2009 Patient encounter procedure Jade Fast DO Work Phone: [facility] Start: 10-19-2009 End: 10-19-2009 Historical Summary Jade Fast DO Work Phone: [facility] Patient encounter procedure Monik Turner [facility]; [facility] Work Phone: Procedures Date Procedure Procedure Detail Performing Clinician Start: 05-23-2014 End: 05-23-2014 Luke Cadena Digital & CAD Comments: See Note; NOTES: [facility] Imaging Services [address] [place] [address] Breast Imaging Report MR#: [id number] Acct: [id number] Name: KAVEH HERRERA Rep #: [id number] : 1965 F 49 From: Javier Sinclair MD PCP: Jade Stubbs DO Status: REG CLI Exam# [id number] Ordering Dr: Jade Stubbs DO MAMMOGRAPHY - BILATERAL DIAGNOSTIC REASON FOR EXAM: Female, 49 years old. Palpable abnormality in the lateral aspect of the left breast. Prior left excisional biopsy. PERTINENT HISTORY: Non-contributory. TECHNIQUE: Digital examination. Mediolateral oblique (MLO) and craniocaudad (CC) views of both breasts were obtained. Compression spot views of the left breast were obtained as well. CAD: CAD was performed on this study. COMPARISON: Comparison is made with prior study dated November 01, 2009 and examination dated 11/25 2002. FINDINGS: Breast Composition: The breasts are heterogeneously dense, which may obscure small masses. There are no dominant masses or suspicious calcifications. No other significant abnormalities are identified. There has been no significant change since the prior study. IMPRESSION: Stable bilateral diagnostic mammogram. With the patient's history of a palpable abnormality in the left breast, correlation with ultrasound is recommended. ASSESSMENT CATEGORY: BIRADS Category 0: Incomplete. Need additional imaging evaluation. A letter regarding these results will be sent to the patient by the facility within 30 days. Approximately 10% of breast cancers are not detected by mammography. A normal mammogram should not delay biopsy of a clinically suspicious abnormality. Electronically Signed: Javier Sinclair MD at 9:07 EDT Tel [phone], Service support [phone], CC: Jade Stubbs DO Finance Clerk: Signed Jade Stubbs DO Work Phone: Start: 05-23-2014 End: 05-23-2014 Breast Unilateral Comments: See Note; NOTES: [facility] Imaging Services [address] [place] [address] Ultrasound Report MR#: [id number] Acct: [id number] Name: KAVEH HERRERA Rep #: [id number] : 1965 F 49 From: Javier Sinclair MD PCP: Jade Stubbs DO Status: REG CLI Study: Breast Unilateral Date of Exam: 05/23/14 Exam# [id number] Ordering Dr: Jade Stubbs DO STUDY: ULTRASOUND BREAST(S) - LEFT REASON FOR EXAM: Female, 49 years old. Palpable lump left breast. TECHNIQUE: Axial and longitudinal images of the LEFT breast were performed with a high resolution ultrasound transducer. COMPARISON: Comparison is made with prior mammogram done earlier in the day. FINDINGS: LEFT BREAST: The lateral aspect of the left breast was examined. There is homogeneous fibroglandular tissue. No solid or cystic mass lesion is seen. IMPRESSION: Unremarkable ultrasound examination. ASSESSMENT CATEGORY: BIRADS Category 2: Benign finding(s). Electronically Signed: Javier Sinclair MD at 9:55 EDT Tel [phone], Service support [phone], CC: Jade Stubbs DO Finance Clerk: Signed Jade Stubbs DO Work Phone: Start: 05-23-2014 End: 05-23-2014 Dexa Bone Density Study (HP) Comments: See Note; NOTES: [facility] Imaging Services [address] [place] [address] Bone Density Report MR#: [id number] Acct: [id number] Name: KAVEH HERRERA Rep #: [id number] : 1965 F 49 From: Javier Sinclair MD PCP: Jade Stubbs DO Status: [facility] CLI Study: Dexa Bone Density Study (HP) Date of Exam: 05/23/14 Exam# [id number] Ordering Dr: Jade Stubbs DO STUDY: DUAL ENERGY X-RAY ABSORPTIOMETRY / DXA REASON FOR EXAM: Female, 49 years old. Early menopause. TECHNIQUE: Bone Mineral Density (BMD) measurements of lumbar spine and bilateral hips were obtained. COMPARISON: Comparison is made with prior study dated November 01, 2009. FINDINGS: Lumbar Spine (L1-L4): g/cm2 (1.194) / T-score (0.1) / Z-score (0.4) Findings are suggestive of normal bone density with a low fracture risk. Left Femur Total: g/cm2 (0.992) / T-score (-0.1) / Z-score (0.3) Left Femoral Neck: g/cm2 (0.938) / T-score (-0.7) / Z-score (0.0) Right Femur Total: g/cm2 (0.958) / T-score (-0.4) / Z-score (0.0) Right Femoral Neck: g/cm2 (0.893) / T-score (-1.0) / Z-score (-0.3) The T-Scores on the most recent prior examination were: Lumbar Spine (L1-L4): There has been improvement of bone density since the previous examination. Left Femur Total: which represents an improvement of 1.1%. Right Femur Total: which represents an improvement of 1.6%. IMPRESSION: The patient is considered normal as outlined below according to World Slava Organization (WHO) criteria with a low fracture risk. There has been improvement of bone density since the previous examination. Reference Information: The T-score is the number of standard deviations above or below the standard which is normal for young adults at their peak bone mineral density. The World Health Organization (WHO) interprets the T-scores as follows: Above -1 Normal bone density Between -1 and -2.5 Osteopenia Equal to / or below -2.5 Osteoporosis As a practical clinical guideline, osteopenia may be graded as follows: Mild -1 through -1.5 Moderate -1.6 through -2.0 Severe -2.1 through -2.4 The Z-score is the number of standard deviations above or below age-matched controls. A Z-score of less than -1.5 would be considered abnormal. References: 1. NIH Osteoporosis and Related Bone Diseases http://www.osteo.org 2. International Society for Clinical Densitometry http://www.iscd.org 3. National Osteoporosis Foundation http://www.nof.org Electronically Signed: Javier Sinclair MD at 9:57 EDT Tel [phone], Service support [phone], CC: Jade Stubbs DO Finance Clerk: Signed Jade Stubbs DO Work Phone: H/O: tubal ligation Tubal Ligation Alliso n Herlinda Plan of Treatment Date Care Activity Detail Author Start: 06-01-2014 Provider Instructions for Treatment Diet, Exercise, and Wt loss [facility]; [facility] Work Phone: Start: 05-31-2014 Cyanocobalamin vitamin b-12 VITAMIN B-12 (CYANOCOBALAMIN) (16206) [facility]; [facility] Work Phone: Start: 05-31-2014 25 hydroxy includes fractions if performed Vitamin D Hydroxy (18545) [facility]; [facility] Work Phone: Start: 05-31-2014 Hepatic function panel HEPATIC FUNCTION PANEL (23176) [facility]; [facility] Work Phone: Start: 05-31-2014 Procedure Education Eprescribed prescriptions (G8553) [facility]; [facility] Work Phone: Start: 05-12-2014 Patient Education Pap Test (Cervical Smear) *: cancer [facility]; [facility] Work Phone: Start: 05-12-2014 Provider Instructions for Treatment [facility]; [facility] Work Phone: Start: 12-09-2012 Provider Instructions for Treatment [facility]; [facility] Work Phone: Start: 09-24-2010 Smr prim src [facility] nfct agt [facility] ([id number]) [facility]; [facility] Work Phone: Payers Date Payer Category Payer Policy ID Unknown Social History Date Type Detail Facility Alcohol Use Alcohol Use [facility] Work Phone: Instructions Note Date & Type Note Facility [facility]; [facility] Work Phone: Family History Unknown Family Member Name Dates Details Family Members In General Comments:has 4 kids- younges t daughter at [facility] [employer] Status:Active Father Comments:HBP- father ag e 62- massive mi- first mi age 60 Status:Active Mother Comments:High cholesterol, N on-hodgkins lymphoma- living with cad and s/p cabg in her 60s- 2012- from another cancer - lung and brain Status:Active Sister 1 Comments:Thyroid dx- all 3 s isters with thyroid disease Status:Active Additional Source Comments FOR RECORDS PERTAINING TO PATIENTS WHO ARE OR HAVE BEEN ENROLLED IN A CHEMICAL DEPENDENCY/SUBSTANCEABUSE PROGRAM, SOME INFORMATION MAY BE OMITTED. This clinical summary was aggregated from multiple sources. Caution should be exercised in using it in the provision of clinical care. This summary normalizes information from multiple sources, and as a consequence, information in this document may materially change the coding, format and clinical context of patient data. In addition, data may be omitted in some cases. CLINICAL DECISIONS SHOULD BE BASED ON THE PRIMARY CLINICAL RECORDS. [facility]. provides no warranty or guarantee of the accuracy or completeness of information in this document.
[2023-10-07 10:34] LABS: Calcium,Total 8.9 mg/dL (8.5-10.1); Free T3 2.1 pg/mL (2.18-3.98); T4 Free Direct 0.63 ng/dL (0.76-1.46)
[2023-10-07 12:20] LABS: PTHIN 12.2 pg/mL (18.4-80.1)
== END | disposition home or self-care (01) ==
LOC: PAVLAB 09:39
PROVIDERS: PCP Family Medicine; Referring Provider Surgery; Visit Provider Surgery
DX: E89.2 Postprocedural hypoparathyroidism (principal)
CPT/HCPCS: 36415; 82310; 83970; 84439; 84443; 84481

== ENCOUNTER → 2023-11-17 | Outpatient (CLI) | payer OTHER, SELFPAY ==
[2023-11-17 13:32] LABS: Ionized Calcium 4.29 mg/dL (4.36-5.20)
[2023-11-17 13:46] LABS: PTHIN 14.9 pg/mL (18.4-80.1)
[2023-11-17 13:56] LABS: Calcium,Total 7.7 mg/dL (8.5-10.1); Free T3 2.4 pg/mL (2.18-3.98); T4 Free Direct 1.19 ng/dL (0.76-1.46); Thyroid Stim Hormone (TSH) 7.58 uIU/mL (0.358-3.74)
== END | disposition home or self-care (01) ==
LOC: PAVLAB 13:14
PROVIDERS: Surgery; PCP Family Medicine; Referring Provider Internal Medicine Endocrinology, Diabetes & Metabolism; Visit Provider Internal Medicine Endocrinology, Diabetes & Metabolism
DX: E03.9 Hypothyroidism, unspecified (principal); E89.2 Postprocedural hypoparathyroidism
CPT/HCPCS: 36415; 82310; 82330; 83970; 84439; 84443; 84481

== ENCOUNTER → 2023-12-17 | Outpatient (CLI) | payer OTHER, SELFPAY ==
[2023-12-17 13:45] LABS: Anion Gap 5 (5-15); BUN 18 mg/dL (7-18); BUN/Creat Ratio 19.2 RATIO (10-20); Calcium,Total 8.6 mg/dL (8.5-10.1); Chloride 106 mmol/L (98-107); Creatinine, Serum 0.94 mg/dL (0.55-1.02); EST Glomerular Filtration Rate 65 mL/min (>60); Est Glom Filt Rate - Afr Amer 79 mL/min (>60); Glucose 114 mg/dL (74-106); Potassium 3.9 mmol/L (3.5-5.1); Sodium Level 140 mmol/L (136-145); Thyroid Stim Hormone (TSH) 3.53 uIU/mL (0.358-3.74)
== END | disposition home or self-care (01) ==
LOC: PAVLAB 13:09
PROVIDERS: PCP Family Medicine; Referring Provider Internal Medicine Endocrinology, Diabetes & Metabolism; Visit Provider Internal Medicine Endocrinology, Diabetes & Metabolism
DX: E03.9 Hypothyroidism, unspecified (principal); E89.2 Postprocedural hypoparathyroidism
CPT/HCPCS: 36415; 80048; 84443

== ENCOUNTER → 2024-10-17 | Outpatient (CLI) | payer OTHER, SELFPAY ==
[2024-10-17 10:46] LABS: Cholesterol 210 mg/dL (200); High Density Lipoprotein 51 mg/dL; Triglycerides 296 mg/dL; Very Low Density Lipoprotein 59 mg/dL (5-40)
== END | disposition home or self-care (01) ==
LOC: MTLAB 09:42
PROVIDERS: PCP Family Medicine; Referring Provider Family Medicine; Visit Provider Family Medicine
DX: Z13.220 Encounter for screening for lipoid disorders (principal)
CPT/HCPCS: 36415; 80061

== ENCOUNTER → 2025-04-19 | Outpatient (CLI) | payer OTHER, SELFPAY ==
--- NOTE | 2025-04-19 15:32 | BD_ITS ---
PROCEDURE: DEXA BONE DENSITY STUDY 04/19/2025 REASON FOR EXAM: OSTEOPENIA F, age 60 y/o . Postmenopausal. TECHNIQUE: DEXA BONE DENSITY STUDY COMPARISON: Priors were compared FINDINGS: BMD and T-SCORES Lumbar spine: 0.964 g/cm2, T-score -1.2 prior bone mass density measured 0.930 consistent with 3.7% increase Levels: L3-L4 Left femoral neck: 0.710 g/cm2, T-score -1.3 BD/Dexa Bone Density Study IMPRESSION: Patient's bone density reveals osteopenia with an estimated 10 year risk for hi p fracture of 0.4% and for a Major osteoporotic fracture of 6.9%. This fracture risk estimate was calculated using FRAX versio n 3.08. Reading Location: [id number]
[2025-04-19 16:31] LABS: AST(SGOT) 33 U/L (<=31); Alanine Aminotransfer ALT/SGPT 39 U/L (<=34); Albumin, Serum 4.0 g/dL (3.4-4.8); Alkaline Phosphatase 83 U/L (35-104); Anion Gap 12 (5-15); BUN 16 mg/dL (4-19); BUN/Creat Ratio 19.1 RATIO (10-20); Calcium,Total 7.3 mg/dL (7.6-11.0); Carbon Dioxide 23.0 mmol/L (21.0-32.0); Chloride 104 mmol/L (98-108); Globulin 3.2 g/dL (2.2-4.2); Glucose 161 mg/dL (70-99); Potassium 4.2 mmol/L (3.3-5.1)
--- OUTSIDE RECORDS SUMMARY | 2025-04-19 20:24 | XMS RPT_ITS | CCD ---
Author Organization [facility] CliniSyvt Care Team Providers Care Lard Renderer Name Role Phone Fast DO, Jade A Unavailable Monik Turner Unavailable Unavailable HerlindaHayley hansen Unavailable Unavailable Journalism Internship, System Unavailable Unavailable Manchak REIMBURSEMENT ANALYST, Krissy Unavailable Unavailable Unavailable Unavailable Dr. Shonda Stinson Primary Care Provider Dr. Shonda Stinson Referring Provider Dr. Eurm Villegas Attending Provider Dr. Shonda Stinson Primary Care Provider Dr. Shonda Stinson Referring Provider Dr. Erum Villegas Attending Provider Dr. Diego George Attending Provider Dr. Lio Desir Referring Provider Dr. Erum Villegas Referring Provider Dr. Erum Villegas Other Provider Dr. Erum Villegas Admit Provider Dr. Florencio Guillaume Attending Provider Dr. Atilio Nathan Attending Provider Dr. Edouard Arevalo Attending Provider Dr. Shonda Stinson Primary Care Provider Dr. Edouard Arevalo Attending Provider Dr. Edouard Arevalo Referring Provider Dr. Shonda Stinson Referring Provider Dr. Florencio Guillaume Attending Provider Osiris SPRING SETTER, SPRING SETTER-C Yuliana Attending Provider Dr. Shonda Stinson Primary Care Provider Dr. Shonda Stinson Referring Provider Aundrea, Dr. Matias Attending Provider Dr. Atilio Nathan Attending Provider Dr. Edouard Arevalo Attending Provider Dr. Atilio Nathan Referring Provider Dr. Atilio Nathan Other Provider Dr. Shonda Stinson Primary Care Provider Dr. Shonda Stinson Referring Provider Dr. Atilio Nathan Attending Provider Aundrea, Dr. Matias Attending Provider Dr. Shonda Stinson Primary Care Provider Dr. Shonda Stinson Referring Provider Dr. Kash Corbett Attending Provider Dr. Erum Villegas Attending Provider Dr. Erum Villegas Referring Provider Dr. Shonda Stinson Primary Care Provider Dr. Atilio Nathan Attending Provider Dr. Atilio Nathan Referring Provider Dr. Atilio Nathan Other Provider Dr. Shonda Stinson Referring Provider Dr. Florencio Guillaume Attending Provider Dr. Kash Corbett Attending Provider Dr. Erum Villegas Attending Provider Dr. Erum Villegas Referring Provider Dr. Shonda Stinson MD Primary Care Provider Dr. Shonda Stinson MD Referring Provider Dr. Erum Villegas MD Attending Provider Osiris SPRING SETTER-C, Yuliana Attending Provider Aundrea ESCALANTE, Dr. Matias Attending Provider Aundrea ESCALANTE, Dr. Matias Referring Provider Dr. Shonda Stinson MD Primary Care Provider Shantell ESCALANTE, Dr. Shonda Hazel Referring Provider King BORIS, Dr. Hewitt Attending Provider Kash Corbett Referring Unavailable Kash Corbett Attending Unavailable Jolliff, Shonda S Primary Care Unavailable Kash Corbett Attending Unavailable Jolliff, Shonda S Primary Care Unavailable Jolliff, Shonda S Referring Unavailable Osiris SPRING SETTER, Yuliana Attending Unavailable Jolliff, Shonda S Primary Care Unavailable Jolliff, Shonda S Referring Unavailable Prah, Florencio Referring Unavailable Prah, Florencio Attending Unavailable Jolliff, Shonda S Primary Care Unavailable Erum Villegas Attending Unavailable Jolliff, Shonda S Primary Care Unavailable Jolliff, Shonda S Referring Unavailable Prah, Florencio Attending Unavailable Jolliff, Shonda S Referring Unavailable Jolliff, Shonda S Primary Care Unavailable Edouard Arevalo Attending Unavailable Jolliff, Shonda S Referring Unavailable Jolliff, Shonda S Primary Care Unavailable Kash Corbett Attending Unavailable Jolliff, Shonda S Referring Unavailable Jolliff, Shonda S Primary Care Unavailable Jolliff, Shonda S Primary Care Unavailable Jolliff, Shonda S Referring Unavailable Jolliff, Shonda S Attending Unavailable Medications Current Medications Medication Drug Class(es) Dates Sig (Normalized) Sig (Original) Echinacea (6 sources) Start: 11-05-2022 take 400 mg by mouth once daily at mealtime Echinacea Active 400 MG PO DAILY November 05, 2022 1:00am administer with meals levothyroxine sodium 0.137 mg oral tablet (15 sources) l-Thyroxine Start: 11-17-2023 End: 11-15-2024 take 1 tablet by mouth once daily Levothyroxine 137 mcg tablet Active 137 ug PO DAILY 90 November 15, 2024 1:36pm Start: 10-19-2023 End: 11-17-2023 take 1 tablet by mouth once daily Levothyroxine 112 mcg tablet Discontinued 112 ug PO DAILY 90 October 19, 2023 1:00am November 17, 2023 5:12pm Start: 10-07-2023 End: 10-19-2023 take 1 tablet by mouth once daily Levothyroxine 75 mcg tablet Discontinued 75 ug PO DAILY 35 35 0 October 07, 2023 1:00am November 10, 2023 1:00am October 19, 2023 10:21am Acquired hypothyroidism Hypothyroidism, unspecified pimecrolimus 10 mg/ml topical cream (2 sources) Calcineurin Inhibitor Immunosuppressant Start: 03-02-2025 Pimecrolimus 1 % cream Active 1 NMA TOPICAL TWICE A DAY March 02, 2025 12:00am silver sulfADIAZINE 10 mg/ml topical cream (1 source) Sulfonamide Antibacterial Start: 02-12-2023 Silv er Sulfadiazine Active 1 APPLIC TOPICAL TWICE A DAY February 12, 2023 12:00am apply a 1.5 mm thickness over area of peeling Completed/Discontinued Medications Medication Drug Class(es) Dates Sig (Normalized) Sig (Original) amoxicillin 875 mg / clavulanate 125 mg oral tablet (2 sources) Penicillin-class Antibacterial Start: 04-30-2015 End: 05-10-2015 take 1 tablet by mouth twice daily AUGMENTIN, 875-125MG (Oral Tablet) 1 (one) Tablet bid for 10 days Quantity: 20 {Tablet} Refills: 0 Ordered: 30-Apr-2015 Krissy Russell CMA Start : 30-Apr-2015 End : 10-May-2015 Inactive Start: 12-09-2012 End: 05-12-2014 take 1 tablet by mouth twice daily AUGMENTIN, 875-125MG (Oral Tablet) 1 Tablet bid for 0 days Quantity: 20 {Tablet} Refills: 0 Ordered: 12-May-2014 Sherly Dior Start : 09-Dec-2012 End : 12-May-2014 Discontinued betamethasone 0.5 mg/ml / clotrimazole 10 mg/ml topical cream (1 source) Azole Antifungal, Corticosteroid Start: 05-31-2014 LOTRISONE, 1-0.05% (External Cream) 1 (one) Cream Cream apply qd for 0 days Quantity: 60 {Gram} Refills: 1 Ordered: 12-Jun-2014 Anca Villarreal Start : 31-May-2014 Active calcitriol 0.09130 mg oral capsule (18 sources) Vitamin D3 Analog Start: 10-26-2023 End: 10-31-2024 take 1 capsule by mouth twice daily Calcitriol 0.25 mcg capsule Discontinued 0.25 ug PO TWICE A DAY 180 1 April 18, 2024 8:15am October 31, 2024 9:48am Start: 10-05-2023 End: 10-26-2023 take 1 capsule by mouth once daily Calcitriol 0.25 mcg capsule Discontinued 0.25 ug PO DAILY 30 0 October 05, 2023 1:00am October 26, 2023 11:54am Start: 08-28-2023 End: 09-27-2023 take 1 capsule by mouth once daily Calcitriol 0.25 mcg capsule Discontinued 0.25 ug PO DAILY 30 30 0 August 28, 2023 1:00am September 26, 2023 1:00am September 27, 2023 1:05am 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 Calcium (1 source) Phosphate Binder, Calcium take 1 tablet by mouth once daily CALCIUM, 500MG (Oral Tablet) 1 tab daily (500 MG) Active calcium carbonate 1250 mg chewable tablet (4 sources) Start: End: take 1 tablet by mouth three times daily Calcium Carbonate (Calcium 500) 500 mg calcium (1,250 mg) tablet,chewable Discontinued 500 mg PO THREE TIMES A DAY October 19, 2023 1:00am April 18, 2024 8:04am calcium carbonate 1250 mg / cholecalciferol 0.01 mg oral tablet (20 sources) Vitamin D Start: End: Calcium Carbonate-Vitamin D3 (Calcium 500 + D) 500 mg-10 mcg (400 unit) tablet Discontinued 1 {tbl} PO DAILY 30 30 October 05, 2023 12:00pm October 19, 2023 9:43am 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 Please take 1 tab twice daily and at third administration take 2 tabs Start: 11-05-2022 End: 08-28-2023 Calcium Carbonate-Vitamin D3 (Calcium 500 + D) 500 mg-10 mcg (400 unit) Tablet Discontinued 1 {tbl} PO DAILY November 05, 2022 1:00am August 28, 2023 1:47pm cholecalciferol 0.05 mg oral tablet (1 source) Vitamin D Start: 05-31-2014 take 2 tablets by mouth once daily VITAMIN D3 SUPER STRENGTH, 2000UNIT (Oral Tablet) 2 (two) Tablet Tablet qd for 0 days Quantity: 60 {Tablet} Refills: 0 Ordered: 12-Jun-2014 Anca Villarreal Start : 31-May-2014 Active ergocalciferol 1.25 mg oral capsule (1 source) Provitamin D2 Compound Start: 09-24-2010 End: 12-09-2012 take 1 capsule by mouth every week DRISDOL, [id number] (Oral Capsule) 1 (one) Capsule q week for 0 days Quantity: 12 {Capsule} Refills: 1 Ordered: 09-Dec-2012 Belen Perez RN Start : 24-Sep-2010 End : 09-Dec-2012 Inactive HYCODEN (Oral Syrup) (Free Text) (1 source) Start: 12-14-2012 End: 12-21-2012 HYCODEN (Oral Syrup) (Free Text) 1 Teaspoon(s) q 6 hrs, prn for 7 days Quantity: 1 {Bottle(s)} Refills: 0 Ordered: 12-May-2014 Fast DO, Jade A Fast DO, Jade A Start : 14-Dec-2012 End : 21-Dec-2012 Inactive Comments: 60ml Comment on above: 60ml Multivitamin preparation (11 sources) Start: 11-05-2022 End: 10-19-2023 take 1 tablet by mouth once daily Multivitamin Discontinued 1 TABLET PO DAILY November 05, 2022 1:00am October 19, 2023 9:43am Start: 11-05-2022 End: 10-19-2023 take 1 tablet by mouth once daily Multivitamin Discontinued 1 TABLET PO DAILY November 05, 2022 12:00am October 19, 2023 8:43am Start: 11-05-2022 take 1 tablet by dione th once daily Multivitamin Active 1 TABLET PO DAILY November 05, 2022 12:00am Start: 11-05-2022 take 1 tablet by dione th once daily Multivitamin Active 1 TABLET PO DAILY November 05, 2022 1:00am Multivitamin Tablet (2 sources) Start: 11-05-2022 End: 10-19-2023 Multivitamin Tablet Discontinued 1 {tbl} PO DAILY November 05, 2022 1:00am October 19, 2023 9:43am tamoxifen 20 mg oral tablet (20 sources) Estrogen Agonist/Antagoni st Start: 02-26-2023 End: 03-02-2025 take 1 tablet by mouth at bedtime Tamoxifen 20 mg tablet Discontinued 20 mg PO AT BEDTIME 90 90 3 October 02, 2023 1:54pm March 17, 2024 2:45pm terconazole 4 mg/ml vaginal cream (1 source) Azole Antifungal Start: 05-19-2014 End: 05-26-2014 TERAZOL 7, 0.4% (Vaginal Cream) 1 (one) Cream qhs for 7 days Quantity: 7 {Each} Refills: 0 Ordered: 19-May-2014 Corazon Morrison RN Start : 19-May-2014 End : 26-May-2014 Inactive traMADol hydrochloride 50 mg oral tablet (13 sources) Opioid Agonist Start: 11-13-2022 End: 11-27-2022 take 50-100 mg by mouth every six hours as needed for pain Tramadol 50 mg tablet Discontinued 50 - 100 mg PO EVERY 6 HOURS as needed for pain 7 2 0 November 13, 2022 1:00am November 27, 2022 9:30am Postoperative pain Other acute postprocedural pain Problems Active Problems Problem Classification Problem Date Documented Date Episodic/Chronic Abdominal pain (2 sources) Pain in pelvis Episodic Administrative/social admission (9 sources) Patient encounter status; Translations: [Counseling, unspecified] 02-26-2023 Episodic Allergic reactions (9 sources) Early radiation dermatitis; Translations: [Acute radiodermatitis] 02-19-2023 Episodic Cancer of breast (20 sources) 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 Pathologic staging pT1c pN1a, anatomic stage IIA.ER >95% positive, IL 85% positive, Her2 negative.S/P Hysterectomy at 28yrs.CT shows L axillary node otherwise no evidence of metastatic disease.US on 12/16/2022 reviewed, + seroma L axilla.Bone scan is negative. Oncotype DX recurrence score 11. Genetic testing BRCA 1&2 negative.Finished adjuvant Radiation to L breast on 02/13/2023.Started adjuvant Tamoxifen on 03/28/2023.Comes for follow up.Tolerating therapy.No clinical evidence of disease. Invasive lobular car cinoma, multifocal, largest focus 1.3 cm, grade 2, margins negative lymph nodes 1 negative. Pathologic staging pT1c pN0. Anatomic stage IA.Invasive Ductal cancer tumor size 5mm, grade 1.ER >95% positive, IL 85% positive, Her2 negative.Oncotype DX 12.On Adjuvant Tamoxifen since 03/28/2023.Comes for follow up.Tolerating therapy. Labs reviewed and OK.No evidence of disease clinically. 1 biopsied with an a dditional area closer to nipple on MRI Complications of surgical procedures or medical care (16 sources) Postprocedural hypoparathyroidism; Translations: [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 surgical removal of thyroid gland] Onset: 4 10-07-2023 Chronic Deficiency and other anemia (1 source) Other vitamin B12 deficiency anemia; Translations: [ANEMIA, VITAMIN B12 DEFICIENCY NEC] 04-27-2015 Episodic Disorders of lipid metabolism (4 sources) Hyperlipidemia; Translations: [Hyperlipidemia] 07-03-2015 Chronic Comment on above: better keep working on diet and exercise Malaise and fatigue (3 sources) Fatigue; Translations: [Fatigue] 04-27-2015 Episodic Nonmalignant breast conditions (20 sources) Breast lump; Translations: [Breast lump] 08-17-2015 Episodic Nutritional deficiencies (1 source) Vitamin D deficiency; Translations: [Vitamin D deficiency, unspecified] 08-13-2015 Chronic Other bone disease and musculoskeletal deformities (1 source) Scoliosis [and kyphoscoliosis], idiopathic; Translations: [Scoliosis, idiopathic] 04-27-2015 Chronic Other bone disease and musculoskeletal deformities (3 sources) Osteopenia; Translations: [Osteopenia] 04-27-2015 Episodic Other bone disease and musculoskeletal deformities (2 sources) Other specified disorders of bone density and structure, multiple sites; Translations: [Other specified disorders of bone density and structure, multiple sites] Onset: 5 Episodic Other circulatory disease (1 source) Elevated blood-pressure reading without diagnosis of hypertension; Translations: [Elevated blood pressure (not hypertension)] 08-14-2015 Episodic Other female genital disorders (1 source) Disorder of female genital organs; Translations: [Other specified conditions associated with female genital organs and menstrual cycle] 08-15-2015 Episodic Other female genital disorders (2 sources) Vaginal discharge; Translations: [Vaginal discharge] 04-27-2015 Episodic Other lower respiratory disease (2 sources) Cough; Translations: [Cough] 04-27-2015 Episodic Other nutritional; endocrine; and metabolic disorders (3 sources) Hypocalcemia; Translations: [Hypocalcemia] 04-27-2015 Chronic Other nutritional; endocrine; and metabolic disorders (2 sources) Obesity; Translations: [Obesity, unspecified] 04-14-2025 Chronic Other nutritional; endocrine; and metabolic disorders (1 source) Morbid (severe) obesity due to excess calories; Translations: [Morbid (severe) obesity due to excess calories] Onset: 5 Chronic Other nutritional; endocrine; and metabolic disorders (1 source) Body mass index (BMI) 35.0-35.9, adult; Translations: [Body mass index [BMI] 35.0-35.9, adult] Onset: 5 Chronic Other nutritional; endocrine; and metabolic disorders (1 source) Weight gain; Translations: [Weight gain] 04-27-2015 Episodic Other screening for suspected conditions (not mental disorders or infectious disease) (12 sources) CT of chest abnormal; Translations: [Abnormal findings on diagnostic imaging of other specified body structures] 12-11-2022 Chronic Other screening for suspected conditions (not mental disorders or infectious disease) (5 sources) Electrocardiogram abnormal; Translations: [Abnormal EKG] Onset: 5 08-13-2015 Episodic Other upper respiratory infections (5 sources) Sore throat symptom; Translations: [Sore throat] 04-27-2015 Episodic Comment on above: check mono titre if neg treat for uri Residual codes; unclassified (1 source) Past history of procedure; Translations: [Breast biopsy] 04-27-2015 Episodic Comment on above: Left at 18 Residual codes; unclassified (20 sources) Other specified postprocedural states; Translations: [Other postprocedural status] 11-13-2022 Episodic Residual codes; unclassified (20 sources) Acquired absence of bilateral breasts and nipples; Translations: [Acquired absence of breast and nipple] 11-13-2022 Episodic Residual codes; unclassified (5 sources) History of thyroid lobectomy; Translations: [Acquired absence of other part of head and neck] 10-07-2023 Episodic Comment on above: Patient's status pos t left thyroid lobectomy with isthmusectomy on 08/25/2023. Overall she has recovered well but her course has been somewhat complicated by unexpected hypoparathyroidism. Pathology from this procedure was benign and we were careful to only take the left lobe and isthmus, however, patient's postoperative hypoparathyroidism and hypothyroidism are not well explained by this limited resection and I remain open to possible causes. Her hypoparathyroidism continues and patient became significantly symptomatic over the weekend when she ran out of calcium. Her labs today show persistent hypoparathyroidism, however, her calcium appears to be high enough that we would be able to take off one of the doses she is currently taking as a means of stimulating the parathyroid activity to return. Residual codes; unclassified (6 sources) Acquired absence of other part of head and neck; Translations: [Other acquired absence of organ] 09-02-2023 Episodic Residual codes; unclassified (2 sources) Estrogen receptor positive status [ER+]; Translations: [Estrogen receptor positive status [ER+]] Onset: 5 Episodic Spondylosis; intervertebral disc disorders; other back problems (1 source) Backache; Translations: [Dorsalgia, unspecified] 08-21-2015 Episodic Thyroid disorders (20 sources) Thyroid nodule; Translations: [Nontoxic single thyroid nodule] Onset: 4 12-25-2022 Chronic Comment on above: following left thyro id lobectomy with isthmusectomy. This is a 58-year-ol d female, euthyroid from an endocrine standpoint, who presents for follow-up of incidentally discovered thyroid nodules during staging work-up for recent breast cancer diagnosis. 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 She is status post FNA biopsy of a left-sided, isthmic, and right-sided nodule on November of this year. All 3 returned consistent with benign cytopathology ([place] 2). I held a lengthy conversation with her and her regarding the pros and cons of lobectomy with isthmusectomy versus total thyroidectomy. This conversation was facilitated with a hand drawing of the patient's anatomy as well as review of her sonographic and CT imaging. Additional discussion was held of the procedure specific risks including recurrent laryngeal nerve injury and parathyroid compromise. It is Mrs. Moran's desire at to proceed with left thyroid lobectomy and isthmusectomy using intraoperative nerve monitoring. 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 rx Unclassified (1 source) Hysterectomy, Cervix Removed; Translations: [Hysterectomy, Cervix Removed] 04-27-2015 Unclassified (2 sources) postmenopausal without estrogen 04-27-2015 Unclassified (1 source) Pregnancies (); Translations: [Pregnancies ()] 04-27-2015 Comment on above: 4 Unclassified (4 sources) screening Resolved: 05-12-2014 04-27-2015 Unclassified (2 sources) Unspecified Diagnosis 04-27-2015 Unclassified (16 sources) Unclassified (1 source) SCREENING FOR BREAST CANCER (V76.10) Unclassified (4 sources) VITAMIN D DEFICIENCY, NOS (268.9) Unclassified (1 source) Elevated LFT (794.8) Unclassified (1 source) Well Women (TAHBSO) (V72.31) Unclassified (3 sources) Elevated Blood Pressure(796.2) Unclassified (1 source) Strep pharyngitis (034.0) Unclassified (1 source) Scoliosis, idiopathic (737.30) Unclassified (1 source) Weight gain (783.1) Unclassified (1 source) Abnormal EKG(794.31) Results Test Name Value Interpretation Reference Range Facility Endocrinology Visit Reporton 04-14-2025 Endocrinology Visit Report [facility] [address] [place] [address] OFFICE VISIT Date of Service: 04/14/25 MR#: [id number] Acct: [id number] Name: KAVEH MORAN Rep #: [id number] 3 : 1965 Provider: Kaykay Alcala Age/Sex: 60/F [place] [facility] [place]: Signed Intake Vital Signs 04/18/24 08:01 03/02/25 14:10 04/14/25 08:13 Height 5 ft 3 in 5 ft 3 in 5 ft 3 in Weight: 201 lb 4 oz BMI 35.6 BP 142/78 H Blood Pressure Location Rt brachial Position Sitting Pulse 92 Pulse Source Monitor Pulse Oximetry (%) 97 Oxygen Delivery Method room air Intake Visit Reasons: 1 Y FU Chief Complaint: Thyroid/parathyroid Is patient in pain?: No Allergies No Known Allergies Allergy (Verified 04/14/25 08:17) Medications ???Medication ???Instructions ???Recorded ???Confirmed ???Type calcium 500 mg (as 3 tab PO DAILY 10/19/23 04/14/25 H istory carbonate)-vitamin D3 10 mcg (400 unit) tablet (Calcium 500 + D) calcitriol 0.25 mcg capsule 0.25 mcg PO BID #180 caps 10/31/24 04/14/25 Rx levothyroxine 137 mcg tablet 137 mcg PO DAILY #90 tabs 11/15/24 04/14/25 Rx pimecrolimus 1 % topical cream 1 applic topical BID 03/02/2503/28 History tamoxifen 20 mg tablet 20 mg PO QHS 90 days #90 tabs 02/1904/14/25 Rx PFSH Medical History (Updated 04/14/25 @ 09:[address] Kash Corbett MD) Obesity Laryngitis Cancer Hx of radiation therapy Encounter for education Multiple thyroid nodules Thyroid nodule Abnormal chest CT Left breast lump Wears partial dentures Wears glasses Post-menopausal Kidney stone Scoliosis Gastric reflux Non-smoker History of stress test 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 of right breast in female Surgical History History of partial thyroidectomy History of colonoscopy History of lymph node dissection of axilla S/P bilateral mastectomy History of bilateral breast biopsy ( 09/2022) Hx of exploratory laparotomy Hx of shoulder surgery History of partial hysterectomy Family History Mother Cancer Sister Thyroid disorder Cancer Social History Smoking Status: Never smoker alcohol intake: current alcohol intake frequency: a few times a month substance use type: does not use HPI HPI Chief Complaint: Thyroid/parathyroid Details: KAVEH MORAN, is a 60 F who presents to the office today for follow up. She presented with some compressive symptoms with multinodular goiter. Nodule was TR4. She has lobectomy and isthmusectomy in July,. Pathology was benign. Oddly, she became hypoparathyroid. No parathyroid tissue was identified in the pathology. She has FMH of Landy's thyroiditis. Path did NOT show Hash and her TPO were negative. She also became profoundly hypothyroid after surgery, which is somewhat unusual. She is taking calcitriol 0.25 bid and levothyroxine 137 mcg daily. She has history of breast cancer and is taking tamoxifen. She has lost 6 pounds since last year, but she is upset with her weight. ROS Const Constitutional: No fatigue, weight change or change in appetite Eyes Eyes: No change in vision ENT ENT: No dizziness/vertigo or difficulty swallowing Cardio Cardiology: No chest pain at rest, chest pain with exertion, shortness of breath or palpitations Musc Musculoskeletal: No abnormal gait, joint pain, numbness or tingling Neuro Neurology: No abnormal gait, memory loss, numbness or tingling Psych Psychiatric: No change in appetite, No memory loss and No Thoughts of harming yourself/Others Resp Respiratory: No cough, chest congestion or shortness of breath Gastro GI: No abdominal pain, constipation, diarrhea or difficulty swallowing Genitourinary-Female: No burning urination Skin Skin: No itchy eyes or wounds Endo Endocrine: No fatigue or weight change Aller/Imm Allergy/Immunologic: No itchy eyes Exam Const General: cooperative, healthy appearing, comfortable, no acute distress, well developed and not cushingoid Nutritional Appearance: well nourished Orientation: alert, awake and oriented x3 HENMT Head: normal to inspection Ears: hearing grossly normal bilaterally Nose: external nose normal Mouth: oral mucosae normal Eyes General: appearance normal, both eyes and all related structures Alignment and Position: alignment normal Periorbital: periorbital findings normal Eyelids: eyelids normal Conjunctivae: conjunctivae normal Neck Neck: normal visual inspection Neck mass: No Chest Chest palpation inspection: normal inspection of the chest Resp Effort I (more content not included)... Normal [facility] Absolute lymphocyte countOrd ered By: [facility] on 03-02-2025 Lymphocytes Auto (Unsp spec) [#/Vol] 1.67 10*3/uL 0.83-4.51 [facility] Absolute neutrophil countOrd ered By: [facility] on 03-02-2025 Neutrophils (Bld) [#/Vol] 4.2 10*3/uL 2.0-7.7 [facility] Anion gap in Serum or Plasma Ordered By: [facility] on 03-02-2025 Anion gap [Moles/Vol] 12 mmol/L 5-15 [facility] Automated lymphocyte count a s percentage of total leukocytesOrdered By: [facility] on 03-02-2025 Lymphocytes/100 WBC Auto (Unsp spec) 25.0 % 19-41 [facility] BUN/creatinine ratioOrdered By: [facility] on 03-02-2025 Urea nitrogen/Creatinine [Mass ratio] 19.4 mg/mg 10-20 [facility] Basophil percentageOrdered B y: [facility] on 03-02-2025 Basophils/100 WBC (Bld) 0.4 % 0-1 [facility] Bilirubin, totalOrdered By: [facility] on 03-02-2025 Bilirubin [Mass/Vol] 0.30 mg/dL 0.00-1.30 [place] CBC W/Diff, Automatedon Absolute Lymph 1.67 X10 3/uL Normal 0.83-4.51 [facility] Comment on above: Performed By: #### L 504.2610, L500.4050, L100.0100 #### [facility] [address] [place], [address] Absolute Neut 4.2 X10 3/uL Normal 2.0-7.7 [facility] Comment on above: Performed By: #### L 504.2610, L500.4050, L100.0100 #### [facility] [address] [place], [address] Basophils/100 WBC (Bld) 0.4 % Normal 0-1 [facility] Comment on above: Performed By: #### L 504.2610, L500.4050, L100.0100 #### [facility] [address] [place], [address] Eosinophils/100 WBC (Bld) 1.5 % Normal 0-5 [facility] Comment on above: Performed By: #### L 504.2610, L500.4050, L100.0100 #### [facility] [address] [place], [address] Erythrocyte distribution width (RBC) [Ratio] 11.9 % Normal 11.6-14.6 [facility] Comment on above: Performed By: #### L 504.2610, L500.4050, L100.0100 #### [facility] [address] [place], [address] Hematocrit (Bld) [Volume fraction] 39.6 % Normal 37-47 [facility] Comment on above: Performed By: #### L 504.2610, L500.4050, L100.0100 #### [facility] [address] [place], [address] Hemoglobin (Bld) [Mass/Vol] 13.8 g/dL Normal 12.0-15.0 [facility] Comment on above: Performed By: #### L 504.2610, L500.4050, L100.0100 #### [facility] [address] [place], [address] IG% 0.100 Normal 0.0-0.9 [facility] Comment on above: Result Comment: IG% - Immature Granulocytes (promyelocytes, myelocytes and metamyelocytes) > 1% indicates that a LEFT SHIFT is Present. Performed By: #### L 504.2610, L500.4050, L100.0100 #### [facility] [address] [place], [address] Lymphocytes/100 WBC (Bld) 25.0 % Normal 19-41 [facility] Comment on above: Performed By: #### L 504.2610, L500.4050, L100.0100 #### [facility] [address] [place], [address] MCH (RBC) [Entitic mass] 31.2 pg Normal 27.0-32.0 [facility] Comment on above: Performed By: #### L 504.2610, L500.4050, L100.0100 #### [facility] [address] [place], [address] MCHC (RBC) [Mass/Vol] 34.8 g/dL Normal 32-36 [facility] Comment on above: Performed By: #### L 504.2610, L500.4050, L100.0100 #### [facility] [address] [place], [address] MCV (RBC) [Entitic vol] 89.4 fL Normal 81-99 [facility] Comment on above: Performed By: #### L 504.2610, L500.4050, L100.0100 #### [facility] [address] [place], [address] Monocytes/100 WBC (Bld) 9.7 % Normal 0-10 [facility] Comment on above: Performed By: #### L 504.2610, L500.4050, L100.0100 #### [facility] [address] [place], [address] Neutrophils/100 WBC (Bld) 63.3 % Normal 47-70 [facility] Comment on above: Performed By: #### L 504.2610, L500.4050, L100.0100 #### [facility] [address] [place], [address] Nucleated RBC (Bld) [#/Vol] 0 10*3/uL Normal 0-5 [facility] Comment on above: Performed By: #### L 504.2610, L500.4050, L100.0100 #### [facility] [address] [place], [address] Platelet mean volume (Bld) [Entitic vol] 9.7 fL Normal 6.2-12.0 [facility] Comment on above: Performed By: #### L 504.2610, L500.4050, L100.0100 #### [facility] [address] [place], [address] Platelets (Bld) [#/Vol] 254 10*3/uL Normal 150-450 [facility] Comment on above: Performed By: #### L 504.2610, L500.4050, L100.0100 #### [facility] [address] [place], [address] RBC (Bld) [#/Vol] 4.43 10*6/uL Normal 4.2-5.4 [facility] Comment on above: Performed By: #### L 504.2610, L500.4050, L100.0100 #### [facility] [address] [place], [address] RDW SD 38.8 fl Normal 35.1-43.9 [facility] Comment on above: Performed By: #### L 504.2610, L500.4050, L100.0100 #### [facility] [address] [place], [address] WBC (Bld) [#/Vol] 6.7 10*3/uL Normal 4.4-11.0 [facility] Comment on above: Performed By: #### L 504.2610, L500.4050, L100.0100 #### [facility] [address] [place], [address] Carbon dioxide, total [Moles /volume] in Central venous bloodOrdered By: Florencio Guillaume on 03-02-2025 CO2 [Moles/Vol] 25.0 mmol/L 21.0-32.0 [facility] Chloride assayOrdered By: Jania Guillaume on 03-02-2025 Chloride [Moles/Vol] 104 mmol/L 98-108 [place] [facility] ilon 03-02-2025 Albumin [Mass/Vol] 4.1 g/dL Normal 3.4-4.8 [facility] Comment on above: Performed By: #### L 504.2610, L500.4050, L100.0100 #### [facility] [address] [place], [address] Albumin/Globulin [Mass ratio] 1.3 {ratio} Normal 0.9-2.4 [facility] Comment on above: Performed By: #### L 504.2610, L500.4050, L100.0100 #### [facility] [address] [place], [address] ALK PHOS 73 U/L Normal 35-104 [facility] Comment on above: Performed By: #### L 504.2610, L500.4050, L100.0100 #### [facility] [address] [place], [address] ALT [Catalytic activity/Vol] 39 U/L High <=34 [facility] Comment on above: Performed By: #### L 504.2610, L500.4050, L100.0100 #### [facility] [address] [place], [address] AST [Catalytic activity/Vol] 39 U/L High <=31 [facility] Comment on above: Performed By: #### L 504.2610, L500.4050, L100.0100 #### [facility] [address] [place], [address] Bilirubin [Mass/Vol] 0.30 mg/dL Normal 0.00-1.30 [place] Comment on above: Performed By: #### L 504.2610, L500.4050, L100.0100 #### [facility] [address] [place], [address] BUN/CRE 19.4 RATIO Normal 10-20 [facility] Comment on above: Performed By: #### L 504.2610, L500.4050, L100.0100 #### [facility] [address] [place], [address] Calcium [Mass/Vol] 8.9 mg/dL Normal 7.6-11.0 [facility] Comment on above: Performed By: #### L 504.2610, L500.4050, L100.0100 #### [facility] [address] [place], [address] Chloride [Moles/Vol] 104 mmol/L Normal 98-108 [place] Comment on above: Performed By: #### L 504.2610, L500.4050, L100.0100 #### [facility] [address] [place], [address] CO2 [Moles/Vol] 25.0 mmol/L Normal 21.0-32.0 [facility] Comment on above: Performed By: #### L 504.2610, L500.4050, L100.0100 #### [facility] [address] [place], [address] Creatinine [Mass/Vol] 0.87 mg/dL Normal 0.70-1.20 [facility] Comment on above: Performed By: #### L 504.2610, L500.4050, L100.0100 #### [facility] [address] [place], [address] ECRCL 74.21 ml/min Normal 50-250 [facility] Comment on above: Performed By: #### L 504.2610, L500.4050, L100.0100 #### [facility] [address] [place], [address] GAP 12 Normal 5-15 [facility] Comment on above: Performed By: #### L 504.2610, L500.4050, L100.0100 #### [facility] [address] [place], [address] GFR/1.73 sq M.predicted among non-blacks MDRD (S/P/Bld) [Vol rate/Area] 77 mL/min/{1.73_m2} Normal >60 [facility] Comment on above: Result Comment: mL/m in/1.73m2 CKD-EPI Creatinine Equation (2020) Performed By: #### L 504.2610, L500.4050, L100.0100 #### [facility] [address] [place], [address] Globulin (S) [Mass/Vol] 3.2 g/dL Normal 2.2-4.2 [facility] Comment on above: Performed By: #### L 504.2610, L500.4050, L100.0100 #### [facility] [address] [place], [address] Glucose [Mass/Vol] 101 mg/dL High 70-99 [facility] Comment on above: Performed By: #### L 504.2610, L500.4050, L100.0100 #### [facility] [address] [place], [address] Potassium [Moles/Vol] 4.5 mmol/L Normal 3.3-5.1 [facility] Comment on above: Performed By: #### L 504.2610, L500.4050, L100.0100 #### [facility] [address] [place], [address] Sodium [Moles/Vol] 140 mmol/L Normal 133-145 [facility] Comment on above: Performed By: #### L 504.2610, L500.4050, L100.0100 #### [facility] [address] [place], [address] T PROT 7.4 g/dL Normal 5.9-8.4 [facility] Comment on above: Performed By: #### L 504.2610, L500.4050, L100.0100 #### [facility] [address] [place], [address] Urea nitrogen [Mass/Vol] 17 mg/dL Normal 4-19 [facility] Comment on above: Performed By: #### L 504.2610, L500.4050, L100.0100 #### [facility] [address] [place], [address] Eosinophil percentageOrdered By: Florencio Guillaume on 03-02-2025 Eosinophils/100 WBC (Bld) 1.5 % 0-5 [facility] Erythrocyte distribution wid th ratioOrdered By: Florencio Guillaume on 03-02-2025 Erythrocyte distribution width (RBC) [Ratio] 11.9 % 11.6-14.6 [facility] Erythrocyte distribution wid th standard deviationOrdered By: Florencio Guillaume on 03-02-2025 Erythrocyte distribution width (RBC) [Ratio] 38.8 fl 35.1-43.9 [facility] Glomerular filtration rate ( GFR) estimation/1.73 sq m using serum, plasma, or whole bOrdered By: Florencio Guillaume on 03-02-2025 GFR/1.73 sq M.predicted among non-blacks MDRD (S/P/Bld) [Vol rate/Area] 77 mL/min/{1.73_m2} >60 [facility] Comment on above: mL/min/1.73m2 CKD-EP I Creatinine Equation (2020) Hematocrit Auto (Bld) [Volum e fraction]Ordered By: Florencio Guillaume on 03-02-2025 Hematocrit (Bld) [Volume fraction] 39.6 % 37-47 [facility] Hemoglobin measurementOrdere d By: Florencio Guillaume on 03-02-2025 Hemoglobin (Bld) [Mass/Vol] 13.8 g/dL 12.0-15.0 [facility] Immature granulocytes/100 WB C Auto (Bld)Ordered By: Florencio Guillaume on 03-02-2025 Immature granulocytes/100 WBC (Bld) 0.100 % 0.0-0.9 [facility] Comment on above: IG% - Immature Granu locytes (promyelocytes, myelocytes and metamyelocytes) > 1% indicates that a LEFT SHIFT is Present. LDHon 03-02-2025 LDH 228 U/L Normal 84-246 [facility] Comment on above: Order Comment: 1 Performed By: #### L 504.2610, L500.4050, L100.0100 #### [facility] [address] [place], [address] Laboratory - Chemistry and C hemistry - challengeOrdered By: Florencio Guillaume on 03-02-2025 AST [Catalytic activity/Vol] 39 U/L High <32 [facility] Lactate dehydrogenase (LDH) measurementOrdered By: Florencio Guillaume on 03-02-2025 LDH [Catalytic activity/Vol] 228 U/L 84-246 [facility] MCV (mean corpuscular volume ) determinationOrdered By: Florencio Guillaume on 03-02-2025 MCV (RBC) [Entitic vol] 89.4 fL 81-99 [facility] Mean corpuscular hemoglobin (MCH) determinationOrdered By: Florencio Guillaume on 03-02-2025 MCH (RBC) [Entitic mass] 31.2 pg 27.0-32.0 [facility] Mean corpuscular hemoglobin concentration (MCHC) determinationOrdered By: Florencio Aundrea on 03-02-2025 MCHC (RBC) [Mass/Vol] 34.8 g/dL 32-36 [facility] Mean platelet volume determi nationOrdered By: [facility] on 03-02-2025 Platelet mean volume (Bld) [Entitic vol] 9.7 fL 6.2-12.0 [facility] Monocyte percentageOrdered B y: [facility] on 03-02-2025 Monocytes/100 WBC (Bld) 9.7 % 0-10 [facility] Neutrophil percentageOrdered By: [facility] on 03-02-2025 Neutrophils/100 WBC (Bld) 63.3 % 47-70 [facility] Nucleated red blood cell per centageOrdered By: [facility] on 03-02-2025 Nucleated RBC/100 WBC (Bld) [Ratio] 0 % 0-5 [facility] Oncology Visit Reporton Oncology Visit Report [facility] [address] [place] [id number] OFFICE VISIT Date of Service: 03/02/25 1410 MR#: [id number] Acct: [id number] Name: KAVEH MORAN Rep #: [id number] : 1965 From: Yuliana Wright Age/Sex: 60/F Location: [facility] [place] Status: Signed HPI Subjective Date of Service 03/02/25 Chief Complaint F/u for R L breast cancer. History of Present Illness 60 y.o. woman found to have abnormal mammogram on 09/24/2022. Bone density on 09/24/2022 showed osteopenia. Repeat mammogram on 09/26/2022 showed bilateral multifocal masses suspicious for malignancy. Ultrasound on 09/26/2022 also showed bilateral multifocal masses. MRI of the breast on 10/21/2022 showed extensive multicentric tumor involvement in both breast with no lymph nodes identified in the axilla. She had core biopsies done on 10/01/2022, pathology showed invasive lobular carcinoma in the right breast, left breast showed invasive ductal carcinoma. Right breast was ER positive greater than 95%, IL +85%, HER2 negative. Left breast was ER positive greater than 95% IL +85% and had to negative. She went on to have right and left mastectomies with sentinel nodes dissection on 11/12/2022. Had Hysterectomy at 28[address] on 12/04/2022 showed ? L axillary node otherwise negative. BRCA 1 and 2 was negative on 11/27/2022. Bone scan on 12/08/2022 was negative. Oncotype DX recurrence score 11 for L and 12 for R on 12/17/2022. US L axilla on 12/16/2022 showed seroma. ctDNA on 11/27/2022 was negative. Oncotype DX RS 11 for L breast, RS 12 for R breast. She got adjuvant Radiation therapy to L breast from 01/12/2023 to 02/13/2023. She start adjuvant Tamoxifen on 03/28/2023. Interval History The patient is presenting to clinic for a planned 6 month follow up. Confirms good tolerance and good adherence to tamoxifen. Reports ongoing fatigue. Believes recent rainy/cold weather may also be contributing. Often too tired to exercise in the evenings after work. Pelvic exam performed by her pcp, up to date. Reports intermittent, mild bilat hip pain alternating with ankle stiffness x several months. Denies daily, persistent or worsening bone/joint pain. Specifically denies weight loss/gain, headaches, dizziness, CP, palpitations, cough, SOB, abd pain, changes in her bowel habits, swelling of her extremities. [facility] Medical History Laryngitis Cancer Hx of radiation therapy Encounter for education Multiple thyroid nodules Thyroid nodule Abnormal chest CT Left breast lump Wears partial dentures Wears glasses Post-menopausal Kidney stone Scoliosis Gastric reflux Non-smoker History of stress test 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 of right breast in female Surgical History History of partial thyroidectomy History of colonoscopy History of lymph node dissection of axilla S/P bilateral mastectomy History of bilateral breast biopsy ( 09/2022) Hx of exploratory laparotomy Hx of shoulder surgery History of partial hysterectomy Family History Mother Cancer Sister Thyroid disorder Cancer Social History Smoking Status: Never smoker alcohol intake: current alcohol intake frequency: a few times a month substance use type: does not use ROS ROS Narrative Negative except as documented in the interval HPI Intake Vital Signs 09/08/24 14:00 03/02/25 14:10 Height 5 ft 3 in 5 ft 3 in Weight: 199 lb 3 oz BMI 35.2 BP 155/90 H Blood Pressure Location Rt brachial Position Sitting Respiration 18 Pulse 73 Pulse Source Monitor Temp 98.8 F Temperature Source Temporal Artery Pulse Oximetry (%) 98 Oxygen Delivery Method room air Intake Is patient in pain?: No Allergies No Known Allergies Allergy (Verified 03/02/25 14:14) Medications ???Medication ???Instructions ???Recorded ???Confirmed ???Type calcium 500 mg (as 3 tab PO DAILY 10/19/23 03/02/25 H istory carbonate)-vitamin D3 10 mcg (400 unit) tablet (Calcium 500 + D) calcitriol 0.25 mcg capsule 0.25 mcg PO BID #180 caps 10/31/24 03/02/25 Rx levothyroxine 137 mcg tablet 137 mcg PO DAILY #90 tabs 11/15/24 03/02/25 Rx pimecrolimus 1 % topical cream 1 applic topical BID 03/02/2502/19 History tamoxifen 20 mg tablet 20 mg PO QHS 90 days #90 tabs 02/1903/02/25 Rx Central Venous Access Central Venous Access: No Laboratory Tests 03/02/25 13:04 WBC 6.7 Hgb 13.8 Hct 39.6 Plt Count 254 Absolute Neuts (auto) 4.2 Sodium 140 Potassium 4.5 Chloride 104 BUN 17 Creatinine 0.87 Glu (more content not included)... Normal [facility] Platelet countOrdered By: Jania Guillaume on 03-02-2025 Platelets (Bld) [#/Vol] 254 10*3/uL 150-450 [facility] Potassium measurement (mass/ volume)Ordered By: Florencio Guillaume on 03-02-2025 Potassium (Unsp spec) [Mass/Vol] 4.5 mmol/L 3.3-5.1 [facility] RBC Auto (Bld) [#/Vol]Ordere d By: Florencio Guillaume on 03-02-2025 RBC (Bld) [#/Vol] 4.43 10*6/uL 4.2-5.4 [facility] Serum creatinine measurement (mass/volume)Ordered By: Florencio Guillaume on 03-02-2025 Creatinine [Mass/Vol] 0.87 mg/dL 0.70-1.20 [facility] Serum globulin measurementOr dered By: Florencio Guillaume on 03-02-2025 Globulin (S) [Mass/Vol] 3.2 g/dL 2.2-4.2 [facility] Serum glucose measurement (m ass/volume)Ordered By: Florencio Guillaume on 03-02-2025 Glucose [Mass/Vol] 101 mg/dL High 70-99 [facility] Serum or plasma alanine bailey otransferase (ALT) measurementOrdered By: Florencio Guillaume on 03-02-2025 ALT [Catalytic activity/Vol] 39 U/L High <35 [facility] Serum or plasma albumin colin urement (mass/volume)Ordered By: Florencio Guillaume on 03-02-2025 Albumin [Mass/Vol] 4.1 g/dL 3.4-4.8 [facility] Serum or plasma albumin/glob ulin mass ratioOrdered By: Florencio Guillaume on 03-02-2025 Albumin/Globulin [Mass ratio] 1.3 {ratio} 0.9-2.4 [facility] Serum or plasma alkaline dayo sphatase measurementOrdered By: Florencio Guillaume on 03-02-2025 ALP [Catalytic activity/Vol] 73 U/L 35-104 [facility] Serum or plasma calcium colin urement (mass/volume)Ordered By: Florencio Guillaume on 03-02-2025 Calcium [Mass/Vol] 8.9 mg/dL 7.6-11.0 [facility] Serum or plasma urea nitroge n measurement (mass/volume)Ordered By: Florencio Guillaume on 03-02-2025 Urea nitrogen [Mass/Vol] 17 mg/dL 4-19 [facility] Sodium levelOrdered By: Shailesh Guillaume on 03-02-2025 Sodium [Moles/Vol] 140 mmol/L 133-145 [facility] Total proteinOrdered By: Jeremiah Guillaume on 03-02-2025 Protein [Mass/Vol] 7.4 g/dL 5.9-8.4 [facility] White blood cell (WBC) count Ordered By: Florencio Guillaume on 03-02-2025 WBC (Bld) [#/Vol] 6.7 10*3/uL 4.4-11.0 [facility] Surgery Visit Reporton 11-18 Surgery Visit Report [facility] [address] [place] [address] OFFICE VISIT Date of Service: 11/17/24 MR#: [id number] Acct: [id number] Name: KAVEH MORAN Rep #: [id number] : 1965 Provider: Dr. Erum garza MD Age/Sex: 59/F Location: [facility] Status: Signed Intake Vital Signs 09/08/24 14:00 Height 5 ft 3 in Intake Visit Reasons: YEARLY BREAST CHECK Chief Complaint: F/u for R L breast cancer. Allergies No Known Allergies Allergy (Verified 11/17/24 09:35) Medications ???Medication ???Instructions ???Recorded ???Confirmed ???Type calcium 500 mg (as 3 tab PO DAILY 10/19/23 11/17/24 H istory carbonate)-vitamin D3 10 mcg (400 unit) tablet (Calcium 500 + D) tamoxifen 20 mg tablet 20 mg PO QHS 90 days #90 tabs 02/2711/17/24 Rx calcitriol 0.25 mcg capsule 0.25 mcg PO BID #180 caps 10/31/24 11/17/24 Rx levothyroxine 137 mcg tablet 137 mcg PO DAILY #90 tabs 11/15/24 11/17/24 Rx PFSH Medical History Laryngitis Cancer Hx of radiation therapy Encounter for education Multiple thyroid nodules Thyroid nodule Abnormal chest CT Left breast lump Wears partial dentures Wears glasses Post-menopausal Kidney stone Scoliosis Gastric reflux Non-smoker History of stress test 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 of right breast in female Surgical History History of partial thyroidectomy History of colonoscopy History of lymph node dissection of axilla S/P bilateral mastectomy History of bilateral breast biopsy ( 09/2022) Hx of exploratory laparotomy Hx of shoulder surgery History of partial hysterectomy Family History Mother Cancer Sister Thyroid disorder Cancer Social History Smoking Status: Never smoker alcohol intake: current alcohol intake frequency: a few times a month substance use type: does not use HPI HPI HPI: 59-year-old female presents status post bilateral mastectomies in October 2022 due to bilateral breast cancers. Patient did also have a left axillary lymph node dissection at that time due to grossly positive lymph nodes. Patient did get adjuvant radiation to the left breast. Patient is still currently on adjuvant tamoxifen. Patient states she occasionally gets some soreness left axilla area but otherwise denies any discomfort or lumps on exam. ROS Breast Breast: No abnormal mammogram or abnormal US Additional Details: Mild soreness in the left axilla occasionally, status post bilateral mastectomies Exam Const General: cooperative, healthy appearing and no acute distress HENMD Head: normal to inspection Chest Other: Breast inspection: well healed mastectomy incisions No masses or no bilateral axillary or supraclavicular adenopathy bilaterally on exam Resp Effort Inspection: normal respiratory effort Cardio Rate: regular rate GI Inspection: non-distended Palpation: soft Skin General: no rashes or lesions noted Neuro General: patient oriented x3 Extrem General: no clubbing, cyanosis or edema Psych Affect: normal affect Assessment and Plan Assessment and Plan (1) S/P bilateral mastectomy: Status: Acute Comment: 11/12/2022- LEFT ALND, Right SNL bx (2) Invasive ductal carcinoma of left breast: Status: Acute Comment: 1 biopsied with an additional area closer to nipple on MRI (3) Invasive lobular carcinoma of right breast in female: Status: Acute Comment: 3 sites biopsied Plan Patient is doing well and continues to have some mild soreness in the left axilla region occasionally. No masses on exam or lymphadenopathy. Follow-up in 1 year. Patient is agreeable to plan. Erum Villegas M.D. Pager: [phone] [facility] [address], Out[address]ilion, [address] [place] [address] Office: [phone] Coding Level of Care Code Off vis,est,level 3 Diagnoses S/P bilateral mastectomy Z90.13 Invasive ductal carcinoma of left breast C50.912 Invasive lobular carcinoma of right breast in female C50.911 11/18/24 0952 Date Erum Villegas MD Cosigner Signature: Date (if applicable) CC: Dr. Shonda Stinson MD; Dr. Edouard Arevalo, DO Normal [facility] Lipid Profileon 10-17-2024 Cholesterol [Mass/Vol] 210 mg/dL High 200 [place] Comment on above: Order Comment: Order Date: 10/17/24 Order Info: [id number] - LIPID Result Comment: <200 mg/dL Desirable 200-240 mg/dL Borderline >240 mg/dL High Risk Performed By: #### L 500.4100 #### [facility] [address] [facility]. [place], [place], [id number] Cholesterol in HDL [Mass/Vol] 51 mg/dL Normal [facility] Comment on above: Order Comment: Order Date: 10/17/24 Order Info: [id number] - LIPID Result Comment: The drugs N-Acetylcysteine and Metamizole may falsely depress this assay. Reference Range HDL <40 mg/dL Low HDL Cholesterol HDL >or= 60 mg/dL High HDL Cholesterol Performed By: #### L 500.4100 #### [facility] [address] [place], [place], [id number] Cholesterol in LDL [Mass/Vol] 100 mg/dL Normal 0-130 [facility] Comment on above: Order Comment: Order Date: 10/17/24 Order Info: [id number] - LIPID Performed By: #### L 500.4100 #### [facility] [address] [place], [address] Cholesterol in VLDL [Mass/Vol] 59 mg/dL High 5-40 [facility] Comment on above: Order Comment: Order Date: 10/17/24 Order Info: [id number] - LIPID Performed By: #### L 500.4100 #### [facility] [address] [place], [address] Triglyceride [Mass/Vol] 296 mg/dL High [facility] Comment on above: Order Comment: Order Date: 10/17/24 Order Info: [id number] - LIPID Result Comment: The drugs N-Acetylcysteine and Metamizole may falsely depress this assay. Serum Triglycerides Reference Interval Normal <150 mg/dL Borderline high 150 - 199 mg/dL High 200 - 499 mg/dL Very High > or = 500 mg/dL Performed By: #### L 500.4100 #### [facility] [address] [place], [address] CBC W/Diff, Automatedon 12 Absolute Lymph 1.90 X10 3/uL Normal 0.83-4.51 [facility] Comment on above: Performed By: #### L 504.2610, L500.4050, L100.0100 #### [facility] [address] [place], [address] Absolute Neut 3.6 X10 3/uL Normal 2.0-7.7 [facility] Comment on above: Performed By: #### L 504.2610, L500.4050, L100.0100 #### [facility] [address] [place], [address] Basophils/100 WBC (Bld) 0.5 % Normal 0-1 [facility] Comment on above: Performed By: #### L 504.2610, L500.4050, L100.0100 #### [facility] [address] [place], [address] Eosinophils/100 WBC (Bld) 1.7 % Normal 0-5 [facility] Comment on above: Performed By: #### L 504.2610, L500.4050, L100.0100 #### [facility] [address] [place], [address] Erythrocyte distribution width (RBC) [Ratio] 11.9 % Normal 11.6-14.6 [facility] Comment on above: Performed By: #### L 504.2610, L500.4050, L100.0100 #### [facility] [address] [place], [address] Hematocrit (Bld) [Volume fraction] 38.6 % Normal 37-47 [facility] Comment on above: Performed By: #### L 504.2610, L500.4050, L100.0100 #### [facility] [address] [place], [address] Hemoglobin (Bld) [Mass/Vol] 13.3 g/dL Normal 12.0-15.0 [facility] Comment on above: Performed By: #### L 504.2610, L500.4050, L100.0100 #### [facility] [address] [place], [address] IG% 0.300 Normal 0.0-0.9 [facility] Comment on above: Result Comment: IG% - Immature Granulocytes (promyelocytes, myelocytes and metamyelocytes) > 1% indicates that a LEFT SHIFT is Present. Performed By: #### L 504.2610, L500.4050, L100.0100 #### [facility] [address] [place], [address] Lymphocytes/100 WBC (Bld) 30.2 % Normal 19-41 [facility] Comment on above: Performed By: #### L 504.2610, L500.4050, L100.0100 #### [facility] [address] [place], [address] MCH (RBC) [Entitic mass] 30.7 pg Normal 27.0-32.0 [facility] Comment on above: Performed By: #### L 504.2610, L500.4050, L100.0100 #### [facility] [address] [place], [address] MCHC (RBC) [Mass/Vol] 34.5 g/dL Normal 32-36 [facility] Comment on above: Performed By: #### L 504.2610, L500.4050, L100.0100 #### [facility] [address] [place], [address] MCV (RBC) [Entitic vol] 89.1 fL Normal 81-99 [facility] Comment on above: Performed By: #### L 504.2610, L500.4050, L100.0100 #### [facility] [address] [place], [address] Monocytes/100 WBC (Bld) 9.4 % Normal 0-10 [facility] Comment on above: Performed By: #### L 504.2610, L500.4050, L100.0100 #### [facility] [address] [place], [address] Neutrophils/100 WBC (Bld) 57.9 % Normal 47-70 [facility] Comment on above: Performed By: #### L 504.2610, L500.4050, L100.0100 #### [facility] [address] [place], [address] Nucleated RBC (Bld) [#/Vol] 0 10*3/uL Normal 0-5 [facility] Comment on above: Performed By: #### L 504.2610, L500.4050, L100.0100 #### [facility] [address] [place], [address] Platelet mean volume (Bld) [Entitic vol] 9.6 fL Normal 6.2-12.0 [facility] Comment on above: Performed By: #### L 504.2610, L500.4050, L100.0100 #### [facility] [address] [place], [address] Platelets (Bld) [#/Vol] 248 10*3/uL Normal 150-450 [facility] Comment on above: Performed By: #### L 504.2610, L500.4050, L100.0100 #### [facility] [address] [place], [address] RBC (Bld) [#/Vol] 4.33 10*6/uL Normal 4.2-5.4 [facility] Comment on above: Performed By: #### L 504.2610, L500.4050, L100.0100 #### [facility] [address] [place], [address] RDW SD 38.2 fl Normal 35.1-43.9 [facility] Comment on above: Performed By: #### L 504.2610, L500.4050, L100.0100 #### [facility] [address] [place], [address] WBC (Bld) [#/Vol] 6.3 10*3/uL Normal 4.4-11.0 [facility] Comment on above: Performed By: #### L 504.2610, L500.4050, L100.0100 #### [facility] [address] [place], [address] Comprehensive Metabolic Prof ilon 09-08-2024 Albumin [Mass/Vol] 3.3 g/dL Normal 3.2-5.0 [facility] Comment on above: Order Comment: 1 Performed By: #### L 504.2610, L500.4050, L100.0100 #### [facility] [address] [place], [address] Albumin/Globulin [Mass ratio] 0.8 {ratio} Low 0.9-2.4 [facility] Comment on above: Order Comment: 1 Performed By: #### L 504.2610, L500.4050, L100.0100 #### [facility] [address] [place], [address] ALK P 75 U/L Normal 45-117 [facility] Comment on above: Order Comment: 1 Performed By: #### L 504.2610, L500.4050, L100.0100 #### [facility] [address] [place], [address] ALT [Catalytic activity/Vol] 53 U/L Normal 13-56 [facility] Comment on above: Order Comment: 1 Performed By: #### L 504.2610, L500.4050, L100.0100 #### [facility] [address] [place], [address] AST [Catalytic activity/Vol] 37 U/L Normal 15-37 [facility] Comment on above: Order Comment: 1 Performed By: #### L 504.2610, L500.4050, L100.0100 #### [facility] [address] [place], [address] Bilirubin [Mass/Vol] 0.30 mg/dL Normal 0.20-1.00 [place] Comment on above: Order Comment: 1 Result Comment: For patients on eltrombopag therapy, use of Dimension [place] TBIL is not recommended. Performed By: #### L 504.2610, L500.4050, L100.0100 #### [facility] [address] [place], [address] BUN/CRE 18.4 RATIO Normal 10-20 [facility] Comment on above: Order Comment: 1 Performed By: #### L 504.2610, L500.4050, L100.0100 #### [facility] [address] [place], [address] CA,Total 7.8 mg/dL Low 8.5-10.1 [facility] Comment on above: Order Comment: 1 Performed By: #### L 504.2610, L500.4050, L100.0100 #### [facility] [address] [place], [address] Chloride [Moles/Vol] 105 mmol/L Normal 98-107 [place] Comment on above: Order Comment: 1 Performed By: #### L 504.2610, L500.4050, L100.0100 #### [facility] [address] [place], [address] CO2 [Moles/Vol] 26.0 mmol/L Normal 21.0-32.0 [facility] Comment on above: Order Comment: 1 Performed By: #### L 504.2610, L500.4050, L100.0100 #### [facility] [address] [place], [address] Creatinine [Mass/Vol] 0.82 mg/dL Normal 0.55-1.02 [facility] Comment on above: Order Comment: 1 Result Comment: The validity of the calculated GFR GFRAA in patients over 70 years has not been determined. Clinical correlation is essential. Performed By: #### L 504.2610, L500.4050, L100.0100 #### [facility] [address] [place], [address] ECRCL 79.92 ml/min Normal [facility] Comment on above: Order Comment: 1 Performed By: #### L 504.2610, L500.4050, L100.0100 #### [facility] [address] [place], [address] EST GFR - AA 92 mL/min Normal >60 [facility] Comment on above: Order Comment: 1 Result Comment: Afri can Palauan GFR Calc Performed By: #### L 504.2610, L500.4050, L100.0100 #### [facility] [address] [place], [address] GAP 8 Normal 5-15 [facility] Comment on above: Order Comment: 1 Performed By: #### L 504.2610, L500.4050, L100.0100 #### [facility] [address] [place], [address] GFR/1.73 sq M.predicted among non-blacks MDRD (S/P/Bld) [Vol rate/Area] 76 mL/min/{1.73_m2} Normal >60 [facility] Comment on above: Order Comment: 1 Result Comment: Non- GFR Calc Performed By: #### L 504.2610, L500.4050, L100.0100 #### [facility] [address] [place], [address] Globulin (S) [Mass/Vol] 4.0 g/dL Normal 2.2-4.2 [facility] Comment on above: Order Comment: 1 Performed By: #### L 504.2610, L500.4050, L100.0100 #### [facility] [address] [place], [address] Glucose [Mass/Vol] 142 mg/dL High 74-106 [facility] Comment on above: Order Comment: 1 Result Comment: Fast ing Glucose result greater than or equal to 126 mg/dL suggests DIABETES MELLITUS per A.D.A. criteria. Performed By: #### L 504.2610, L500.4050, L100.0100 #### [facility] [address] [place], [address] Potassium [Moles/Vol] 4.2 mmol/L Normal 3.5-5.1 [facility] Comment on above: Order Comment: 1 Performed By: #### L 504.2610, L500.4050, L100.0100 #### [facility] [address] [place], [address] Sodium [Moles/Vol] 139 mmol/L Normal 136-145 [facility] Comment on above: Order Comment: 1 Performed By: #### L 504.2610, L500.4050, L100.0100 #### [facility] [address] [place], [address] T PROT 7.3 g/dL Normal 6.4-8.2 [facility] Comment on above: Order Comment: 1 Performed By: #### L 504.2610, L500.4050, L100.0100 #### [facility] [address] [place], [address] Urea nitrogen [Mass/Vol] 15 mg/dL Normal 7-18 [facility] Comment on above: Order Comment: 1 Performed By: #### L 504.2610, L500.4050, L100.0100 #### [facility] [address] [place], [address] LDHon 09-08-2024 LDH 219 U/L Normal 84-246 [facility] Comment on above: Order Comment: 1 Performed By: #### L 504.2610, L500.4050, L100.0100 #### [facility] [address] [place], [address] Oncology Visit Reporton 08-28 Oncology Visit Report [facility] [address] [place] [address] OFFICE VISIT Date of Service: 09/08/24 1357 MR#: [id number] Acct: [id number] Name: KAVEH MORAN Rep #: [id number] : 1965 From: Florencio Guillaume MD Age/Sex: 59/F Location: [facility] [place] Status: Signed HPI Subjective Date of Service 09/08/24 Chief Complaint F/u for R L breast cancer. History of Present Illness 59y.o.man found to have abnormal mammogram on 09/24/2022. Bone density on 09/24/2022 showed osteopenia. Repeat mammogram on 09/26/2022 showed bilateral multifocal masses suspicious for malignancy. Ultrasound on 09/26/2022 also showed bilateral multifocal masses. MRI of the breast on 10/21/2022 showed extensive multicentric tumor involvement in both breast with no lymph nodes identified in the axilla. She had core biopsies done on 10/01/2022, pathology showed invasive lobular carcinoma in the right breast, left breast showed invasive ductal carcinoma. Right breast was ER positive greater than 95%, IL +85%, HER2 negative. Left breast was ER positive greater than 95% IL +85% and had to negative. She went on to have right and left mastectomies with sentinel nodes dissection on 11/12/2022. Had Hysterectomy at 28[address] on 12/04/2022 showed ? L axillary node otherwise negative. BRCA 1 and 2 was negative on 11/27/2022. Bone scan on 12/08/2022 was negative. Oncotype DX recurrence score 11 for L and 12 for R on 12/17/2022. US L axilla on 12/16/2022 showed seroma. ctDNA on 11/27/2022 was negative. Oncotype DX RS 11 for L breast, RS 12 for R breast. She got adjuvant Radiation therapy to L breast from 01/12/2023 to 02/13/2023. She start adjuvant Tamoxifen on 03/28/2023. Comes for follow up. Feels well. [facility] Medical History Laryngitis Cancer Hx of radiation therapy Encounter for education Multiple thyroid nodules Thyroid nodule Abnormal chest CT Left breast lump Wears partial dentures Wears glasses Post-menopausal Kidney stone Scoliosis Gastric reflux Non-smoker History of stress test 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 of right breast in female Surgical History History of partial thyroidectomy History of colonoscopy History of lymph node dissection of axilla S/P bilateral mastectomy History of bilateral breast biopsy ( 09/2022) Hx of exploratory laparotomy Hx of shoulder surgery History of partial hysterectomy Family History Mother Cancer Sister Thyroid disorder Cancer Social History Smoking Status: Never smoker alcohol intake: current alcohol intake frequency: a few times a month substance use type: does not use Intake Vital Signs 03/17/24 14:02 09/08/24 13:58 09/08/24 14:00 Height 5 ft 3 in 5 ft 3 in 5 ft 3 in Weight: 92.306 kg BMI 36.0 BP 145/91 H Blood Pressure Location Rt brachial Position Sitting Respiration 18 Pulse 71 Pulse Source Monitor Temp 97.9 F Temperature Source Temporal Artery Pulse Oximetry (%) 99 Oxygen Delivery Method room air Intake Is patient in pain?: No Allergies No Known Allergies Allergy (Verified 09/08/24 13:58) Medications ???Medication ???Instructions ???Recorded ???Confirmed ???Type calcium 500 mg (as 3 tab PO DAILY 10/19/23 09/08/24 History carbonate)-vitamin D3 10 mcg (400 unit) tablet (Calcium 500 + D) levothyroxine 137 mcg tablet 137 mcg PO DAILY #90 tabs 11/17/23 09/08/24 Rx tamoxifen 20 mg tablet 20 mg PO QHS 90 days #90 tabs 03/17/24 09/08/24 Rx calcitriol 0.25 mcg capsule 0.25 mcg PO BID #180 caps 04/18/24 09/08/24 Rx Central Venous Access Central Venous Access: No Laboratory Results 09/08/24 05/28/23 13:10 13:25 WBC 6.3 5.6 Hgb 13.3 13.0 Hct 38.6 38.8 Plt Count 248 254 Absolute Neuts (auto) 3.6 Absolute Lymphs (auto) 1.90 Sodium 139 Potassium 4.2 Chloride 105 Carbon Dioxide 26.0 BUN 15 Creatinine 0.82 Glucose 142 H Calcium 7.8 L Total Bilirubin 0.30 AST 37 ALT 53 Alkaline Phosphatase 75 Lactate Dehydrogenase 219 Total Protein 7.3 Albumin 3.3 Globulin 4.0 Exam Physical Exam Const alert, oriented x3 and no apparent distress HEENT normocephalic, external ears normal and external nose normal Eyes PERRL, EOMs intact bilaterally and no scleral icterus Neck full ROM and supple Lymph Lymphatic: no lymphadenopathy noted Chest Chest Narrative: +R mastectomy surgical scar. + L mastectomy surgical scar. Resp normal respiratory effort and clear to auscultation bilaterally Cardio regular rate, regular rhythm, S1 no (more content not included)... Normal [facility] Radiation Oncology Visiton 1 10-09-2023 Radiation Oncology Visit [facility] [address] [place] [address] OFFICE VISIT Date of Service: 08/09/241527 MR#: [id number] Acct: [id number] Name: KAVEH MORAN Rep #: [id number] : 1965 From: Edouard Arevalo DO Age/Sex: 59/F Location: [facility] [place] Status: Signed Intake Vital Signs 04/04/24 15:13 04/18/24 08:01 08/09/24 15:31 08/09/24 15:35 Height 5 ft 3 in 5 ft 3 in 5 ft 3 in 5 ft 3 in Weight: 203 lb 207 lb 204 lb 7 oz BMI 36.6 36.2 BP 152/80 H 150/96 H Blood Pressure Location Lt brachial Lt brachial Position Sitting Sitting Respiration 18 Pulse 81 81 Pulse Source Monitor Monitor Pulse Oximetry (%) 96 97 Oxygen Delivery Method room air room air Intake Visit Reasons: 4 MONTH F/U BREAST Is patient in pain?: No Allergies No Known Allergies Allergy (Verified 08/09/24 15:30) Medications ???Medication ???Instructions ???Recorded ???Confirmed ???Type calcium 500 mg (as 3 tab PO DAILY 10/19/23 08/09/24 History carbonate)-vitamin D3 10 mcg (400 unit) tablet (Calcium 500 + D) levothyroxine 137 mcg tablet 137 mcg PO DAILY #90 tabs 11/17/23 08/09/24 Rx tamoxifen 20 mg tablet 20 mg PO QHS 90 days #90 tabs 03/17/24 08/09/24 Rx calcitriol 0.25 mcg capsule 0.25 mcg PO BID #180 caps 04/18/24 08/09/24 Rx PFSH PFSH Medical History Laryngitis Cancer Hx of radiation therapy Encounter for education Multiple thyroid nodules Thyroid nodule Abnormal chest CT Left breast lump Wears partial dentures Wears glasses Post-menopausal Kidney stone Scoliosis Gastric reflux Non-smoker History of stress test 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 of right breast in female Home Medications ???Medication ???Instructions ???Recorded ???Last Taken ???Type calcium 500 mg (as 3 tab PO DAILY 10/19/23 Unknown History carbonate)-vitamin D3 10 mcg (400 unit) tablet (Calcium 500 + D) levothyroxine 137 mcg tablet 137 mcg PO DAILY #90 tabs 11/17/23 Unknown Rx tamoxifen 20 mg tablet 20 mg PO QHS 90 days #90 tabs 03/17/24 Unknown Rx calcitriol 0.25 mcg capsule 0.25 mcg PO BID #180 caps 04/18/24 Unknown Rx Allergy/AdvReac Type Severity Reaction Status Date / Time No Known Allergies Allergy Verified 08/09/24 15:30 Family History Mother Cancer Sister Thyroid disorder Cancer Surgical History History of partial thyroidectomy History of colonoscopy History of lymph node dissection of axilla S/P bilateral mastectomy History of bilateral breast biopsy ( 09/2022) Hx of exploratory laparotomy Hx of shoulder surgery History of partial hysterectomy Social History Smoking Status: Never smoker alcohol intake: current alcohol intake frequency: a few times a month substance use type: does not use Diagnosis: Kaveh Moran is a 59-year-old female diagnosed with pathologic stage IA (pT1b (m) N0 (sn) M0) grade 2 invasive lobular carcinoma (ER > 95%, IL 85%, HER2 0+ IHC) of the right breast and pathologic stage IIA (pT1c pN1a M0) grade 2 invasive ductal carcinoma (ER > 95%, IL 85%, HER2 0+ IHC) of the left breast status post bilateral screening mammography (09/24/2022), bilateral diagnostic mammogram with ultrasound (09/26/2022), multiple biopsies of the bilateral breasts (10/01/2022), bilateral breast MRI with contrast (10/21/2022), completion of bilateral mastectomy and bilateral sentinel lymph node biopsy followed by left axillary dissection (11/12/2022), CT chest/abdomen/pelvis (12/04/2022), bone scan (12/08/2022), evaluation by medical oncology (12/17/2022), left axillary ultrasound (12/16/2022), thyroid ultrasound (12/16/2022), and thyroid biopsy (12/25/2022). From 01/12/2023 ??? 02/13/2023 she received adjuvant left chest wall and RNI radiation therapy. History of Present Illness: 09/24/2022: Bilateral screening mammography was performed.??? This demonstrated a focal asymmetry in the right central retroareolar breast at the middle depth approximately 4.3 cm from the nipple, recommend spot compression views and ultrasound.??? There is also an asymmetry in the right inner breast middle depth seen approximately 3.9 cm posterior to the nipple, recommend further assessment with spot compression views and ultrasound.??? A third finding of a suspicious 2.1 x 1.3 cm high density irregularly marginated mass in the left lower inner breast posterior depth approximately 6 cm posterior to the nipple is noted and further assessment with spot compression views and ultrasound is recommended. 09/26/2022: Bilateral diagnostic mammogram was performed.??? Spot compression vi (more content not included)... Normal [facility] Endocrinology Visit Reporton 04-18-2024 Endocrinology Visit Report [facility] [address] [place] [address] OFFICE VISIT Date of Service: 04/18/24 MR#: [id number] Acct: [id number] Name: KAVEH MORAN Rep #: [id number] : 1965 Provider: Kaykay Alcala Age/Sex: 59/F [place] [facility] [place]: Signed Intake Vital Signs 10/19/23 08:55 04/04/24 15:13 04/18/24 08:01 Height 5 ft 3 in 5 ft 3 in 5 ft 3 in Weight: 207 lb BMI 36.6 BP 152/80 H Blood Pressure Location Lt brachial Position Sitting Pulse 81 Pulse Source Monitor Pulse Oximetry (%) 96 Oxygen Delivery Method room air Intake Visit Reasons: 6 M FU Chief Complaint: Thyroid/parathyroid Quality Coordinator Required: No Accompanied by: Is patient in pain?: No Allergies No Known Allergies Allergy (Verified 04/18/24 08:03) Medications ???Medication ???Instructions ???Recorded ???Confirmed ???Type calcium carbonate 500 mg-vitamin 3 tab PO DAILY 10/19/23 04/18/24 History D3 10 mcg (400 unit) tablet (Calcium 500 + D) levothyroxine 137 mcg tablet 137 mcg PO DAILY #90 tabs 11/17/23 04/18/24 Rx tamoxifen 20 mg tablet 20 mg PO QHS 90 days #90 tabs 03/17/24 04/18/24 Rx calcitriol 0.25 mcg capsule 0.25 mcg PO BID #180 caps 04/18/24 04/18/24 Rx PFSH Medical History Laryngitis Cancer Hx of radiation therapy Encounter for education Multiple thyroid nodules Thyroid nodule Abnormal chest CT Left breast lump Wears partial dentures Wears glasses Post-menopausal Kidney stone Scoliosis Gastric reflux Non-smoker History of stress test 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 of right breast in female Surgical History History of partial thyroidectomy History of colonoscopy History of lymph node dissection of axilla S/P bilateral mastectomy History of bilateral breast biopsy ( 09/2022) Hx of exploratory laparotomy Hx of shoulder surgery History of partial hysterectomy Family History Mother Cancer Sister Thyroid disorder Cancer Social History Smoking Status: Never smoker alcohol intake: current alcohol intake frequency: a few times a month substance use type: does not use HPI HPI Chief Complaint: Thyroid/parathyroid Details: KAVEH MORAN, is a 59 F who presents to the office today for follow up. She presented with some compressive symptoms with multinodular goiter. Nodule was TR4. She has lobectomy and isthmusectomy. Pathology was benign. Oddly, she became hypoparathyroid. No parathyroid tissue was identified in the pathology. She has FMH of Landy's thyroiditis. Path did NOT show Hash and her TPO were recently negative. She also became profoundly hypothyroid after surgery, which is somewhat unusual. She is taking calcitriol 0.25 bid and levothyroxine 137 mcg daily. She has history of breast cancer and is taking tamoxifen. Exam Const General: cooperative, healthy appearing, comfortable, no acute distress, well developed and not cushingoid Nutritional Appearance: well nourished Orientation: alert, awake and oriented x3 HENMD Head: normal to inspection Ears: hearing grossly normal bilaterally Nose: external nose normal Mouth: oral mucosae normal Eyes General: appearance normal, both eyes and all related structures Alignment and Position: alignment normal Periorbital: periorbital findings normal Eyelids: eyelids normal Conjunctivae: conjunctivae normal Neck Neck: normal visual inspection Neck mass: No Thyroid: other (scar well healed) Lymphatic: no lymphadenopathy noted Chest Chest palpation inspection: normal inspection of the chest Resp Effort Inspection: normal respiratory effort, able to speak in complete sentences, symmetric chest movement, no audible wheezes and no cough Auscultation: Bilateral: Clear to Auscultation Cardio Rate: regular rate Rhythm: regular rhythm Pulses: posterior tibial pulses present GI Inspection: normal to inspection Skin General: no rashes or lesions noted Neuro General: patient alert, patient awake and patient oriented x3 Cranial Nerves: CN's II-XI intact bilaterally Cognition: normal cognition Speech: speech normal Gait: normal gait Motor: muscle tone normal throughout Extrem General: no edema Psych Appearance: grossly normal Mental Status: mental status grossly normal Mood: congruent mood Affect: normal affect Speech and Movement: speech and movement normal Attitude: cooperative Thought Process: normal Thought Content: normal Judgment: judgment good Coding Level of Care Code Off vis (more content not included)... Normal [facility] Serum or plasma thyroid stim ulating hormone (TSH) measurement (units/volume)Ordered By: Kash Corbett on 03-17-2024 TSH Qn 2.49 uIU/mL 0.358-3.74 [facility] Basophil percentageOrdered B y: Kash Corbett on 12-17-2023 Chloride [Moles/Vol] 106 mmol/L 98-107 [place] Glucose [Mass/Vol] 114 mg/dL 74-106 [facility] Comment on above: Fasting Glucose resu lt from 100 to 125 mg/dL suggests IMPAIRED HOMEOSTASIS per A.D.A. criteria. Potassium [Moles/Vol] 3.9 mmol/L 3.5-5.1 [facility] Sodium [Moles/Vol] 140 mmol/L 136-145 [facility] Laboratory - Chemistry and C hemistry - challengeOrdered By: Kash Corbett on 12-17-2023 CO2 [Moles/Vol] 29.0 mmol/L 21.0-32.0 [facility] Urea nitrogen/Creatinine [Mass ratio] 19.2 mg/mg 10- [facility] No Panel InformationOrdered By: Kash Corbett on 12-17-2023 Estimated GFR (MDRD) Amer 79 mL/min >60 [facility] Comment on above: GFR Calc Estimated GFR (MDRD) Non-Af Amer 65 mL/min >60 [facility] Comment on above: Non- GFR Calc Serum or plasma calcium colin urement (mass/volume)Ordered By: Kash Corbett on 12-17-2023 Calcium [Mass/Vol] 8.6 mg/dL 8.5-10.1 [facility] Serum or plasma creatinine m easurement (mass/volume)Ordered By: Kash Corbett on 12-17-2023 Creatinine [Mass/Vol] 0.94 mg/dL 0.55-1.02 [facility] Comment on above: The validity of the calculated GFR & GFRAA in patients over 70 years has not been determined. Clinical correlation is essential. Serum or plasma thyroid stim ulating hormone (TSH) measurement (units/volume)Ordered By: Kash Corbett on 12-17-2023 TSH Qn 3.53 uIU/mL 0.358-3.74 [facility] Serum or plasma urea nitroge n measurement (mass/volume)Ordered By: Kash Corbett on 12-17-2023 Urea nitrogen [Mass/Vol] 18 mg/dL 7-18 [facility] Thin prep Papanicolaou smear with manual screeningOrdered By: Kash Corbett on 12-17-2023 Thin prep Papanicolaou smear with manual screening 5 5-15 [facility] No Panel InformationOrdered By: Kash Corbett on 11-17-2023 Ionized Calcium 4.29 mg/dL 4.36-5.20 [facility] No Panel InformationOrdered By: Atilio Nathan on 11-17-2023 Free Triiodothyronine (T3) pg/dL 2.4 pg/mL 2.18-3.98 [facility] Parathyroid Hormone (Intact) 14.9 pg/mL 18.4-80.1 [facility] Serum or plasma calcium colin urement (mass/volume)Ordered By: Atilio Nathan on 11-17-2023 Calcium [Mass/Vol] 7.7 mg/dL 8.5-10.1 [facility] Serum or plasma thyroid stim ulating hormone (TSH) measurement (units/volume)Ordered By: Atilio Nathan on 11-17-2023 TSH Qn 7.58 uIU/mL 0.358-3.74 [facility] Thin prep Papanicolaou smear with manual screeningOrdered By: Atilio Nathan on 11-17-2023 Thin prep Papanicolaou smear with manual screening 1.19 ng/dL 0.76-1.46 [facility] Calcium SerPl-mCncon 024 Calcium [Mass/Vol] 8.1 mg/dL Low 8.5-10.2 [facility] Comment on above: Order Comment: Specarmond sparks Type: BLOOD SPECIMEN Ordering Facility: [facility] Address: [address] [place], [place] [address], [place] [address] Performed By: #### 1 7861-6 #### [facility] CLIA [id number] [address] [place] [address] [place] Calcium.ionized [Moles/Vol]o n 10-23-2023 Calcium.ionized (Bld) [Mass/Vol] 1.07 mmol/L Low 1.08-1.30 [facility] Comment on above: Order Comment: Ankit sparks Type: BLOOD SPECIMEN Ordering Facility: [facility] Address: [address] [place], [place] [address], [place] [address] Performed By: #### 1 995-0 #### [facility] CLIA [id number] [address] [id number] [place] Calcium.ionized adjusted to pH 7.4 (Bld) [Moles/Vol] 1.07 mmol/L Low 1.08-1.30 [facility] Comment on above: Order Comment: Speci men Type: BLOOD SPECIMEN Ordering Facility: [facility] Address: [facility] [place] [address] Performed By: #### 1 995-0 #### [facility] CLIA [id number] [address] [place], [place] [id number] [place] PTH-Intact SerPl-mCncon 09-29 Parathyrin.intact [Mass/Vol] 11 pg/mL Low 15-65 [facility] Comment on above: Order Comment: Speci men Type: BLOOD SPECIMEN Ordering Facility: [facility] Address: [facility] [place] [address] Performed By: #### 3 024-7, 273-8 #### [facility] [place] [id number] [address] [place], [place] [id number] [place] T4 Free SerPl-mCncon 024 Free T4 [Mass/Vol] 1.4 ng/dL Normal 0.9-1.7 [facility] Comment on above: Order Comment: Speci men Type: BLOOD SPECIMEN Ordering Facility: [facility] Address: [facility] [place] [address] Performed By: #### 3 024-7, 2731-8 #### [facility] [place] [id number] [address] [place], [place] [id number] [place] Laboratory - Chemistry and C hemistry - challengeOrdered By: Atilio Nathan on 10-07-2023 Free T4 [Mass/Vol] 0.63 ng/dL 0.76-1.46 [facility] No Panel InformationOrdered By: Atilio Nathan on 10-07-2023 Free Triiodothyronine (T3) pg/dL 2.1 pg/mL 2.18-3.98 [facility] Parathyroid Hormone (Intact) 12.2 pg/mL 18.4-80.1 [facility] Thyroid Stimulating Hormone (TSH) 55.80 uIU/mL 0.358-3.74 [facility] Serum or plasma calcium colin urement (mass/volume)Ordered By: Atilio Nathan on 10-07-2023 Calcium [Mass/Vol] 8.9 mg/dL 8.5-10.1 [facility] Absolute lymphocyte countOrd ered By: Florencio Guillaume on 09-17-2023 Lymphocytes Auto (Unsp spec) [#/Vol] 1.71 10*3/uL 0.83-4.51 [facility] Basophil percentageOrdered B y: Florencio Guillaume on 09-17-2023 Basophils/100 WBC (Bld) 0.7 % 0-1 [facility] Bilirubin [Mass/Vol] 0.30 mg/dL 0.20-1.00 [place] Comment on above: For patients on eltr ombopag therapy, use of Dimension [place] TBIL is not recommended. Chloride [Moles/Vol] 104 mmol/L 98-107 [place] Eosinophils/100 WBC (Bld) 3.1 % 0-5 [facility] Glucose [Mass/Vol] 129 mg/dL 74-106 [facility] Comment on above: Fasting Glucose resu lt greater than or equal to 126 mg/dL suggests DIABETES MELLITUS per A.D.A. criteria. LDH [Catalytic activity/Vol] 249 U/L 84-246 [facility] Neutrophils (Bld) [#/Vol] 3.4 10*3/uL 2.0-7.7 [facility] Neutrophils/100 WBC (Bld) 57.7 % 47-70 [facility] Potassium [Moles/Vol] 3.7 mmol/L 3.5-5.1 [facility] Protein [Mass/Vol] 7.5 g/dL 6.4-8.2 [facility] Sodium [Moles/Vol] 139 mmol/L 136-145 [facility] WBC (Bld) [#/Vol] 5.9 10*3/uL 4.4-11.0 [facility] Blood erythrocytes count (nu mber/volume)Ordered By: Florencio Guillaume on 09-17-2023 RBC (Bld) [#/Vol] 4.34 10*6/uL 4.2-5.4 [facility] Blood hemoglobin measurement (mass/volume)Ordered By: Florencio Guillaume on 09-17-2023 Hemoglobin (Bld) [Mass/Vol] 13.3 g/dL 12.0-15.0 [facility] Blood lymphocytes/100 leukoc ytesOrdered By: Florencio Guillaume on 09-17-2023 Lymphocytes/100 WBC (Bld) 29.0 % 19-41 [facility] Blood monocytes/100 leukocyt esOrdered By: Florencio Guillaume on 09-17-2023 Monocytes/100 WBC (Bld) 9.2 % 0-10 [facility] Blood platelet mean volumeOr dered By: Florencio Guillaume on 09-17-2023 Platelet mean volume (Bld) [Entitic vol] 9.6 fL 6.2-12.0 [facility] Determination of erythrocyte mean corpuscular volume (MCV)Ordered By: Florencio Guillaume on 09-17-2023 MCV (RBC) [Entitic vol] 90.8 fL 81-99 [facility] Hematocrit Auto (Bld) [Volum e fraction]Ordered By: Florencio Guillaume on 09-17-2023 Hematocrit (Bld) [Volume fraction] 39.4 % 37-47 [facility] Laboratory - Chemistry and C hemistry - challengeOrdered By: Florencio Guillaume on 09-17-2023 ALP [Catalytic activity/Vol] 80 U/L 45-117 [facility] ALT [Catalytic activity/Vol] 42 U/L 13-56 [facility] CO2 [Moles/Vol] 27.0 mmol/L 21.0-32.0 [facility] Globulin (S) [Mass/Vol] 4.1 g/dL 2.2-4.2 [facility] Urea nitrogen/Creatinine [Mass ratio] 17.3 mg/mg 10-20 [facility] Laboratory - Hematology and Cell countsOrdered By: Florencio Guillaume on 09-17-2023 Erythrocyte distribution width (RBC) [Entitic vol] 40.6 fL 35.1-43.9 [facility] Erythrocyte distribution width (RBC) [Ratio] 12.1 % 11.6-14.6 [facility] Immature granulocytes/100 WBC (Bld) 0.300 % 0.0-0.9 [facility] Comment on above: IG% - Immature Granu locytes (promyelocytes, myelocytes and metamyelocytes) > 1% indicates that a LEFT SHIFT is Present. MCH (RBC) [Entitic mass] 30.6 pg 27.0-32.0 [facility] Nucleated RBC/100 WBC (Bld) [Ratio] 0 % 0-5 [facility] MCHC Auto (RBC) [Mass/Vol]Or dered By: Florencio Guillaume on 09-17-2023 MCHC (RBC) [Mass/Vol] 33.8 g/dL 32-36 [facility] No Panel InformationOrdered By: Florencio Guillaume on 09-17-2023 Estimated Creatinine Clearance Calc 60.87 ml/min [facility] Estimated GFR (MDRD) Amer 86 mL/min >60 [facility] Comment on above: GFR Calc Estimated GFR (MDRD) Non-Af Amer 71 mL/min >60 [facility] Comment on above: Non- GFR Calc No Panel InformationOrdered By: Atilio Nathan on 09-17-2023 Parathyroid Hormone (Intact) 12.5 pg/mL Low 18.4-80.1 [facility] Platelets bldOrdered By: Jeremiah Guillaume on 09-17-2023 Platelets (Bld) [#/Vol] 267 10*3/uL 150-450 [facility] Serum or plasma albumin colin urement (mass/volume)Ordered By: Florencio Guillaume on 09-17-2023 Albumin [Mass/Vol] 3.4 g/dL 3.2-5.0 [facility] Serum or plasma albumin/glob ulin mass ratioOrdered By: Florencio Guillaume on 09-17-2023 Albumin/Globulin [Mass ratio] 0.8 {ratio} 0.9-2.4 [facility] Serum or plasma calcium colin urement (mass/volume)Ordered By: Florencio Guillaume on 09-17-2023 Calcium [Mass/Vol] 7.6 mg/dL 8.5-10.1 [facility] Serum or plasma creatinine m easurement (mass/volume)Ordered By: Florencio Guillaume on 09-17-2023 Creatinine [Mass/Vol] 0.87 mg/dL 0.55-1.02 [facility] Comment on above: The validity of the calculated GFR & GFRAA in patients over 70 years has not been determined. Clinical correlation is essential. Serum or plasma urea nitroge n measurement (mass/volume)Ordered By: Florencio Guillaume on 09-17-2023 Urea nitrogen [Mass/Vol] 15 mg/dL 7-18 [facility] Thin prep Papanicolaou smear with manual screeningOrdered By: Florencio Guillaume on 09-17-2023 Thin prep Papanicolaou smear with manual screening 31 U/L 15-37 [facility] Thin prep Papanicolaou smear with manual screening 8 5-15 [facility] No Panel InformationOrdered By: Atilio Nathan on 08-28-2023 Parathyroid Hormone (Intact) < 6.3 pg/mL 18.4-80.1 [facility] Serum or plasma calcium colin urement (mass/volume)Ordered By: Atilio Nathan on 08-28-2023 Calcium [Mass/Vol] 7.0 mg/dL 8.5-10.1 [facility] Absolute lymphocyte countOrd ered By: Florencio Guillaume on 05-28-2023 Lymphocytes Auto (Unsp spec) [#/Vol] 1.47 10*3/uL 0.83-4.51 [facility] Basophil percentageOrdered B y: Florencio Guillaume on 05-28-2023 Basophils/100 WBC (Bld) 0.5 % 0-1 [facility] Bilirubin [Mass/Vol] 0.30 mg/dL 0.20-1.00 [place] Comment on above: For patients on eltr ombopag therapy, use of Dimension [place] TBIL is not recommended. Chloride [Moles/Vol] 108 mmol/L 98-107 [place] Eosinophils/100 WBC (Bld) 1.4 % 0-5 [facility] Glucose [Mass/Vol] 86 mg/dL 74-106 [facility] LDH [Catalytic activity/Vol] 215 U/L 84-246 [facility] Neutrophils (Bld) [#/Vol] 3.5 10*3/uL 2.0-7.7 [facility] Neutrophils/100 WBC (Bld) 62.0 % 47-70 [facility] Potassium [Moles/Vol] 4.2 mmol/L 3.5-5.1 [facility] Protein [Mass/Vol] 7.3 g/dL 6.4-8.2 [facility] Sodium [Moles/Vol] 139 mmol/L 136-145 [facility] WBC (Bld) [#/Vol] 5.6 10*3/uL 4.4-11.0 [facility] Blood erythrocytes count (nu mber/volume)Ordered By: Florencio Guillaume on 05-28-2023 RBC (Bld) [#/Vol] 4.19 10*6/uL 4.2-5.4 [facility] Blood hemoglobin measurement (mass/volume)Ordered By: Florencio Guillaume on 05-28-2023 Hemoglobin (Bld) [Mass/Vol] 13.0 g/dL 12.0-15.0 [facility] Blood lymphocytes/100 leukoc ytesOrdered By: Florencio Guillaume on 05-28-2023 Lymphocytes/100 WBC (Bld) 26.3 % 19-41 [facility] Blood monocytes/100 leukocyt esOrdered By: Florencio Guillaume on 05-28-2023 Monocytes/100 WBC (Bld) 9.6 % 0-10 [facility] Blood platelet mean volumeOr dered By: Florencio Guillaume on 05-28-2023 Platelet mean volume (Bld) [Entitic vol] 9.5 fL 6.2-12.0 [facility] Determination of erythrocyte mean corpuscular volume (MCV)Ordered By: Florencio Guillaume on 05-28-2023 MCV (RBC) [Entitic vol] 92.6 fL 81-99 [facility] Hematocrit Auto (Bld) [Volum e fraction]Ordered By: Florencio Guillaume on 05-28-2023 Hematocrit (Bld) [Volume fraction] 38.8 % 37-47 [facility] Laboratory - Chemistry and C hemistry - challengeOrdered By: Florencio Guillaume on 05-28-2023 ALP [Catalytic activity/Vol] 72 U/L 45-117 [facility] ALT [Catalytic activity/Vol] 48 U/L 13-56 [facility] CO2 [Moles/Vol] 27.0 mmol/L 21.0-32.0 [facility] Globulin (S) [Mass/Vol] 3.8 g/dL 2.2-4.2 [facility] Urea nitrogen/Creatinine [Mass ratio] 20.0 mg/mg 10-20 [facility] Laboratory - Hematology and Cell countsOrdered By: Florencio Guillaume on 05-28-2023 Erythrocyte distribution width (RBC) [Entitic vol] 40.3 fL 35.1-43.9 [facility] Erythrocyte distribution width (RBC) [Ratio] 11.9 % 11.6-14.6 [facility] Immature granulocytes/100 WBC (Bld) 0.200 % 0.0-0.9 [facility] Comment on above: IG% - Immature Granu locytes (promyelocytes, myelocytes and metamyelocytes) > 1% indicates that a LEFT SHIFT is Present. MCH (RBC) [Entitic mass] 31.0 pg 27.0-32.0 [facility] Nucleated RBC/100 WBC (Bld) [Ratio] 0 % 0-5 [facility] MCHC Auto (RBC) [Mass/Vol]Or dered By: Florencio Guillaume on 05-28-2023 MCHC (RBC) [Mass/Vol] 33.5 g/dL 32-36 [facility] No Panel InformationOrdered By: Florencio Guillaume on 05-28-2023 Estimated GFR (MDRD) Amer 88 mL/min >60 [facility] Comment on above: GFR Calc Estimated GFR (MDRD) Non-Af Amer 73 mL/min >60 [facility] Comment on above: Non- GFR Calc Platelets bldOrdered By: Jeremiah Guillaume on 05-28-2023 Platelets (Bld) [#/Vol] 254 10*3/uL 150-450 [facility] Serum or plasma albumin colin urement (mass/volume)Ordered By: Florencio Guillaume on 05-28-2023 Albumin [Mass/Vol] 3.5 g/dL 3.2-5.0 [facility] Serum or plasma albumin/glob ulin mass ratioOrdered By: Florencio Guillaume on 05-28-2023 Albumin/Globulin [Mass ratio] 0.9 {ratio} 0.9-2.4 [facility] Serum or plasma calcium colin urement (mass/volume)Ordered By: Florencio Guillaume on 05-28-2023 Calcium [Mass/Vol] 8.7 mg/dL 8.5-10.1 [facility] Serum or plasma creatinine m easurement (mass/volume)Ordered By: Florencio Guillaume on 05-28-2023 Creatinine [Mass/Vol] 0.85 mg/dL 0.55-1.02 [facility] Comment on above: The validity of the calculated GFR & GFRAA in patients over 70 years has not been determined. Clinical correlation is essential. Serum or plasma urea nitroge n measurement (mass/volume)Ordered By: Florencio Guillaume on 05-28-2023 Urea nitrogen [Mass/Vol] 17 mg/dL 7-18 [facility] Thin prep Papanicolaou smear with manual screeningOrdered By: Florencio Guillaume on 05-28-2023 Thin prep Papanicolaou smear with manual screening 28 U/L 15-37 [facility] Thin prep Papanicolaou smear with manual screening 4 5-15 [facility] Laboratory - Chemistry and C hemistry - challengeOrdered By: Dr. Nathan on 12-26-2022 T4 [Mass/Vol] 13.7 ug/dL 4.8-13.9 [facility] No Panel InformationOrdered By: Dr. Nathan on 12-26-2022 Free Triiodothyronine (T3) pg/dL 2.8 pg/mL 2.18-3.98 [facility] Thyroid Stimulating Hormone (TSH) 0.80 uIU/mL 0.358-3.74 [facility] Serum or plasma thyroperoxid ase antibody assay (units/volume)Ordered By: Dr. Nathan on 12-26-2022 TPO Ab Qn [IU]/mL 0-34 [facility] Comment on above: Performed at: [address] [id number] Director: Nimesh Iverson PhD, Phone: [phone] Absolute lymphocyte countOrd ered By: Dr. Guillaume on 11-27-2022 Lymphocytes Auto (Unsp spec) [#/Vol] 1.56 10*3/uL 0.83-4.51 [facility] Basophil percentageOrdered B y: Dr. Guillaume on 11-27-2022 Basophils/100 WBC (Bld) 0.6 % 0-1 [facility] Bilirubin [Mass/Vol] 0.60 mg/dL 0.20-1.00 [place] Comment on above: For patients on eltr ombopag therapy, use of Dimension [place] TBIL is not recommended. Chloride [Moles/Vol] 108 mmol/L 98-107 [place] Eosinophils/100 WBC (Bld) 1.0 % 0-5 [facility] Glucose [Mass/Vol] 112 mg/dL 74-106 [facility] Comment on above: Fasting Glucose resu lt from 100 to 125 mg/dL suggests IMPAIRED HOMEOSTASIS per A.D.A. criteria. LDH [Catalytic activity/Vol] 203 U/L 84-246 [facility] Neutrophils (Bld) [#/Vol] 4.5 10*3/uL 2.0-7.7 [facility] Neutrophils/100 WBC (Bld) 67.8 % 47-70 [facility] Potassium [Moles/Vol] 4.7 mmol/L 3.5-5.1 [facility] Protein [Mass/Vol] 7.7 g/dL 6.4-8.2 [facility] Sodium [Moles/Vol] 142 mmol/L 136-145 [facility] WBC (Bld) [#/Vol] 6.7 10*3/uL 4.4-11.0 [facility] Blood erythrocytes count (nu mber/volume)Ordered By: Dr. Guillaume on 11-27-2022 RBC (Bld) [#/Vol] 4.50 10*6/uL 4.2-5.4 [facility] Blood hemoglobin measurement (mass/volume)Ordered By: Dr. Guillaume on 11-27-2022 Hemoglobin (Bld) [Mass/Vol] 14.0 g/dL 12.0-15.0 [facility] Blood lymphocytes/100 leukoc ytesOrdered By: Dr. Guillaume on 11-27-2022 Lymphocytes/100 WBC (Bld) 23.3 % 19-41 [facility] Blood monocytes/100 leukocyt esOrdered By: Dr. Guillaume on 11-27-2022 Monocytes/100 WBC (Bld) 7.0 % 0-10 [facility] Blood platelet mean volumeOr dered By: Dr. Guillaume on 11-27-2022 Platelet mean volume (Bld) [Entitic vol] 9.7 fL 6.2-12.0 [facility] Determination of erythrocyte mean corpuscular volume (MCV)Ordered By: Dr. Guillaume on 11-27-2022 MCV (RBC) [Entitic vol] 92.2 fL 81-99 [facility] Hematocrit Auto (Bld) [Volum e fraction]Ordered By: Dr. Guillaume on 11-27-2022 Hematocrit (Bld) [Volume fraction] 41.5 % 37-47 [facility] - Chemistry and C hemistry - challengeOrdered By: Dr. Guillaume on 11-27-2022 ALP [Catalytic activity/Vol] 86 U/L 45-117 [facility] ALT [Catalytic activity/Vol] 42 U/L 13-56 [facility] CO2 [Moles/Vol] 31.0 mmol/L 21.0-32.0 [facility] Globulin (S) [Mass/Vol] 4.0 g/dL 2.2-4.2 [facility] Urea nitrogen/Creatinine [Mass ratio] 15.3 mg/mg 10-20 [facility] - Hematology and Cell countsOrdered By: Dr. Guillaume on 11-27-2022 Erythrocyte distribution width (RBC) [Entitic vol] 40.1 fL 35.1-43.9 [facility] Erythrocyte distribution width (RBC) [Ratio] 11.9 % 11.6-14.6 [facility] Immature granulocytes/100 WBC (Bld) 0.300 % 0.0-0.9 [facility] Comment on above: IG% - Immature Granu locytes (promyelocytes, myelocytes and metamyelocytes) > 1% indicates that a LEFT SHIFT is Present. MCH (RBC) [Entitic mass] 31.1 pg 27.0-32.0 [facility] Nucleated RBC/100 WBC (Bld) [Ratio] 0 % 0-5 [facility] MCHC Auto (RBC) [Mass/Vol]Or dered By: Dr. Guillaume on 11-27-2022 MCHC (RBC) [Mass/Vol] 33.7 g/dL 32-36 [facility] No Panel InformationOrdered By: Dr. Guillaume on 11-27-2022 Estimated GFR (MDRD) Amer 88 mL/min >60 [facility] Comment on above: GFR Calc Estimated GFR (MDRD) Non-Af Amer 73 mL/min >60 [facility] Comment on above: Non- GFR Calc Miscellaneous Test Comment MAILED SPECIMEN [facility] Platelets bldOrdered By: Dr. Guillaume on 11-27-2022 Platelets (Bld) [#/Vol] 319 10*3/uL 150-450 [facility] Serum or plasma albumin colin urement (mass/volume)Ordered By: Dr. Guillaume on 11-27-2022 Albumin [Mass/Vol] 3.7 g/dL 3.2-5.0 [facility] Serum or plasma albumin/glob ulin mass ratioOrdered By: Dr. Guillaume on 11-27-2022 Albumin/Globulin [Mass ratio] 0.9 {ratio} 0.9-2.4 [facility] Serum or plasma calcium colin urement (mass/volume)Ordered By: Dr. Guillaume on 11-27-2022 Calcium [Mass/Vol] 9.1 mg/dL 8.5-10.1 [facility] Serum or plasma creatinine m easurement (mass/volume)Ordered By: Dr. Guillaume on 11-27-2022 Creatinine [Mass/Vol] 0.85 mg/dL 0.55-1.02 [facility] Comment on above: The validity of the calculated GFR & GFRAA in patients over 70 years has not been determined. Clinical correlation is essential. Serum or plasma urea nitroge n measurement (mass/volume)Ordered By: Dr. Guillaume on 11-27-2022 Urea nitrogen [Mass/Vol] 13 mg/dL 7-18 [facility] Thin prep Papanicolaou smear with manual screeningOrdered By: Dr. Guillaume on 11-27-2022 Thin prep Papanicolaou smear with manual screening 25 U/L 15-37 [facility] Thin prep Papanicolaou smear with manual screening 3 5-15 [facility] Absolute lymphocyte countOrd ered By: Dr. Villegas on 11-13-2022 Lymphocytes Auto (Unsp spec) [#/Vol] 1.72 10*3/uL 0.83-4.51 [facility] Basophil percentageOrdered B y: Dr. Villegas on 11-13-2022 Basophils/100 WBC (Bld) 0.0 % 0-1 [facility] Eosinophils/100 WBC (Bld) 0.0 % 0-5 [facility] Neutrophils (Bld) [#/Vol] 16.9 10*3/uL 2.0-7.7 [facility] Neutrophils/100 WBC (Bld) 84.6 % 47-70 [facility] WBC (Bld) [#/Vol] 20.0 10*3/uL 4.4-11.0 [facility] Blood erythrocytes count (nu mber/volume)Ordered By: Dr. Villegas on 11-13-2022 RBC (Bld) [#/Vol] 4.23 10*6/uL 4.2-5.4 [facility] Blood hemoglobin measurement (mass/volume)Ordered By: Dr. Villegas on 11-13-2022 Hemoglobin (Bld) [Mass/Vol] 13.1 g/dL 12.0-15.0 [facility] Blood lymphocytes/100 leukoc ytesOrdered By: Dr. Villegas on 11-13-2022 Lymphocytes/100 WBC (Bld) 8.6 % 19-41 [facility] Blood monocytes/100 leukocyt esOrdered By: Dr. Villegas on 11-13-2022 Monocytes/100 WBC (Bld) 6.3 % 0-10 [facility] Blood platelet mean volumeOr dered By: Dr. Villegas on 11-13-2022 Platelet mean volume (Bld) [Entitic vol] 9.8 fL 6.2-12.0 [facility] Determination of erythrocyte mean corpuscular volume (MCV)Ordered By: Dr. Villegas on 11-13-2022 MCV (RBC) [Entitic vol] 91.3 fL 81-99 [facility] Hematocrit Auto (Bld) [Volum e fraction]Ordered By: Dr. Villegas on 11-13-2022 Hematocrit (Bld) [Volume fraction] 38.6 % 37-47 [facility] Laboratory - Hematology and Cell countsOrdered By: Dr. Villegas on 11-13-2022 Erythrocyte distribution width (RBC) [Entitic vol] 40.7 fL 35.1-43.9 [facility] Erythrocyte distribution width (RBC) [Ratio] 12.2 % 11.6-14.6 [facility] Immature granulocytes/100 WBC (Bld) 0.500 % 0.0-0.9 [facility] Comment on above: IG% - Immature Granu locytes (promyelocytes, myelocytes and metamyelocytes) > 1% indicates that a LEFT SHIFT is Present. MCH (RBC) [Entitic mass] 31.0 pg 27.0-32.0 [facility] Nucleated RBC/100 WBC (Bld) [Ratio] 0 % 0-5 [facility] MCHC Auto (RBC) [Mass/Vol]Or dered By: Dr. Villegas on 11-13-2022 MCHC (RBC) [Mass/Vol] 33.9 g/dL 32-36 [facility] Platelets bldOrdered By: Dr. Villegas on 11-13-2022 Platelets (Bld) [#/Vol] 273 10*3/uL 150-450 [facility] CBC W/AUTO DIFF WBC (36260)O rdered By: Director Of Clinical Trials on 04-27-2015 Basophils (Bld) [#/Vol] 0.0 10*3/uL Normal 0.0-0.2 [facility]; [facility] Work Phone: Comment on above: PATIENT NOT FASTINGP ERFORMED BY: ESTELLA [employer]6[address] [facility] [id number] Information: [id number], [id number] Basophils/100 WBC (Bld) 1 % Normal [facility]; [facility] Work Phone: Comment on above: PATIENT NOT FASTINGP ERFORMED BY: [employer]6[address] [facility] [id number] Information: [id number], [id number] Eosinophils (Bld) [#/Vol] 0.1 10*3/uL Normal 0.0-0.4 [facility]; [facility] Work Phone: Comment on above: PATIENT NOT FASTINGP ERFORMED BY: SETELLA Aviles6370 [facility] [id number] Information: [id number] Eosinophils/100 WBC (Bld) 2 % Normal [facility]; [facility] Work Phone: Comment on above: PATIENT NOT FASTINGP ERFORMED BY: ESTELLA Olguinlin6370 [facility] [id number] Information: [id number] Erythrocyte distribution width (RBC) [Ratio] 12.4 % Normal 12.3-15.4 [facility]; [facility] Work Phone: Comment on above: PATIENT NOT FASTINGP ERFORMED BY: ESTELLA Olguinlin6370 [facility] [id number] Information: [id number] Hematocrit (Bld) [Volume fraction] 42.0 % Normal 34.0-46.6 [facility]; [facility] Work Phone: Comment on above: PATIENT NOT FASTINGP ERFORMED BY: ESTELLA Benítez Mfinsb8187 [facility] [id number] Information: [id number], 101687 Hemoglobin (Bld) [Mass/Vol] 14.3 g/dL Normal 11.1-15.9 [facility]; [facility] Work Phone: Comment on above: PATIENT NOT FASTINGP ERFORMED BY: ESTELLA Benítez Ieiexl5621 [facility] [id number] Information: [id number], 038247 Immature granulocytes (Bld) [#/Vol] 0.0 10*3/uL Normal 0.0-0.1 [facility]; [facility] Work Phone: Comment on above: PATIENT NOT FASTINGP ERFORMED BY: ESTELLA Benítez Gzghld0566 [facility] [id number] Information: [id number] Immature granulocytes/100 WBC (Bld) 0 % Normal [facility]; [facility] Work Phone: Comment on above: PATIENT NOT FASTINGP ERFORMED BY: ESTELLA Benítez Kkqlxy5575 [facility] [id number] Information: [id number], 403649 Lymphocytes (Bld) [#/Vol] 2.0 10*3/uL Normal 0.7-3.1 [facility]; [facility] Work Phone: Comment on above: PATIENT NOT FASTINGP ERFORMED BY: ESTELLA CalderaJoseph [place] [id number] [facility] [id number] Information: [id number], 759193 Lymphocytes/100 WBC (Bld) 32 % Normal [facility]; [facility] Work Phone: Comment on above: PATIENT NOT FASTINGP ERFORMED BY: ESTELLA Benítez Irebcq1446 [facility] [id number] Information: [id number], 706098 MCH (RBC) [Entitic mass] 31.4 pg Normal 26.6-33.0 [facility]; [facility] Work Phone: Comment on above: PATIENT NOT FASTINGP ERFORMED BY: ESTELLA [facility]El[facility] Zbvrlw5232 [facility] [id number] Information: [id number], 543953 MCHC (RBC) [Mass/Vol] 34.0 g/dL Normal 31.5-35.7 [facility] prehensive Internal Medicine; [facility] Work Phone: Comment on above: PATIENT NOT FASTINGP ERFORMED BY: ESTELLA CalderaAscension Borgess-[facility]ipp Hospital6370 [facility] [id number] Information: [id number], 987758 MCV (RBC) [Entitic vol] 92 fL Normal 79-97 [facility]; [facility] Work Phone: Comment on above: PATIENT NOT FASTINGP ERFORMED BY: ESTELLA Benítez Cdqqiu0358 [facility] [id number] Information: [id number], 087370 Monocytes (Bld) [#/Vol] 0.6 10*3/uL Normal 0.1-0.9 [facility]; [facility] Work Phone: Comment on above: PATIENT NOT FASTINGP ERFORMED BY: ESTELLA Aviles6[address] [place] [id number] Information: [id number], 964393 Monocytes/100 WBC (Bld) 9 % Normal [facility]; [facility] Work Phone: Comment on above: PATIENT NOT FASTINGP ERFORMED BY: ESTELLA Aviles[address] [place] [id number] Information: [id number], [id number] Neutrophils (Bld) [#/Vol] 3.5 10*3/uL Normal 1.4-7.0 [facility]; [facility] Work Phone: Comment on above: PATIENT NOT FASTINGP ERFORMED BY: ESTELLA Aviles6370 [facility] [id number] Information: [id number], 255811 Neutrophils/100 WBC (Bld) 56 % Normal [facility]; [facility] Work Phone: Comment on above: PATIENT NOT FASTINGP ERFORMED BY: ESTELLA Aviles6[address] [place] [id number] Information: [id number], 423668 Platelets (Bld) [#/Vol] 324 10*3/uL Normal 150-379 [facility]; [facility] Work Phone: Comment on above: PATIENT NOT FASTINGP ERFORMED BY: ESTELLA Aviles[address] [facility] [id number] Information: [id number], 118914 RBC (Bld) [#/Vol] 4.55 10*6/uL Normal 3.77-5.28 [facility]; [facility] Work Phone: Comment on above: PATIENT NOT FASTINGP ERFORMED BY: ESTELLA Aviles[address] [place] [id number] Information: [id number], 262159 WBC (Bld) [#/Vol] 6.3 10*3/uL Normal 3.4-10.8 [facility]; [facility] Work Phone: Comment on above: PATIENT NOT FASTINGP ERFORMED BY: ESTELLA [employer] Dbdjdt4962 [facility] [id number] Information: [id number], [id number] EBV Panel (73635)Ordered By: Director Of Clinical Trials on 04-27-2015 EBV capsid IgG IA Qn (S) 201.0 U/mL Abnormal 0.0-17.9 [facility]; [facility] Work Phone: Comment on above: Negative <18.0 Equiv ocal 18.0 - 21.9 Positive >21.9 PATIENT NOT FASTINGP ERFORMED BY: ESTELLA [facility] Trmleo3725 [facility] [id number] EBV capsid IgM IA Qn (S) <36.0 Normal 0.0-35.9 [facility]; [facility] Work Phone: Comment on above: Negative <36.0 Equiv ocal 36.0 - 43.9 Positive >43.9 PATIENT NOT FASTINGP ERFORMED BY: ESTELLA [employer] Pcxpfg0031 [facility] [id number] EBV early IgG Qn (S) 16.6 U/mL Abnormal 0.0-8.9 [facility]; [facility] Work Phone: Comment on above: Hepatitis A, Hepatit is C and HIV antibodies may cross-reactwith this assay. Negative < 9.0 Equivocal 9.0 - 10.9 Positive >10.9 PATIENT NOT FASTINGP ERFORMED BY: ESTELLA [employer] Pcwtwt0340 [facility] [id number] EBV nuclear IgG IA Qn (S) 284.0 U/mL Abnormal 0.0-17.9 [facility]; [facility] Work Phone: Comment on above: Negative <18.0 Equiv ocal 18.0 - 21.9 Positive >21.9 PATIENT NOT FASTINGP ERFORMED BY: [employer] Qlzhgu8633 [facility] [id number] Service comment (Unsp spec) [Interp] SPR Normal [facility]; [facility] Work Phone: Comment on above: EBV Interpretation Jennifer ramos . Interpretation EBV-IgM EA(D)-IgG VCA-IgG EBNA-IgG . EBV Seronegative - - - - Early Phase + - - - Acute Primary + +or- + - Infection Convalescence/Past - +or- + + Infection Reactivated +or- + + + Infection + Antibody Present - Antibody Absent PATIENT NOT FASTINGP ERFORMED BY: [employer] [place] [id number] TSH (69195)Ordered By: [employer] on 04-27-2015 TSH Qn 1.570 {uIU/mL} Normal 0.450-4.500 [facility]; [facility] Work Phone: Comment on above: PATIENT NOT FASTINGP ERFORMED BY: [employer] [place] [id number] VITAMIN B-12 (CYANOCOBALAMIN ) (52717)Ordered By: Director Of Clinical Trials on 04-27-2015 Cobalamin (Vitamin B12) [Mass/Vol] 619 pg/mL Normal 211-946 [facility]; [facility] Work Phone: Comment on above: PATIENT NOT FASTINGP ERFORMED BY: [employer] [place] [id number] CBC, PLATELETS & AUT DIFF (3 3023)Ordered By: Director Of Clinical Trials on 05-23-2014 Basophils (Bld) [#/Vol] 0.0 10*3/uL Normal 0.0-0.2 [facility]; [facility] Work Phone: Comment on above: PATIENT WAS FASTINGP ERFORMED BY: [employer] [place] [id number] Information: [id number],F20061 Basophils/100 WBC (Bld) 1 % Normal 0-3 [facility]; [facility] Work Phone: Comment on above: PATIENT WAS FASTINGP ERFORMED BY: [place]elsionDublin [place] [id number] Information: [id number],X49947 Eosinophils (Bld) [#/Vol] 0.1 10*3/uL Normal 0.0-0.4 [facility]; [facility] Work Phone: Comment on above: PATIENT WAS FASTINGP ERFORMED BY: [address] [id number] Information: [id number],[id number] Eosinophils/100 WBC (Bld) 2 % Normal 0-5 [facility]; [facility] Work Phone: Comment on above: PATIENT WAS FASTINGP ERFORMED BY: [address] [id number] Information: [id number] Erythrocyte distribution width (RBC) [Ratio] 12.7 % Normal 12.3-15.4 [facility]; [facility] Work Phone: Comment on above: PATIENT WAS FASTINGP ERFORMED BY: [address] [id number] Information: [id number],N68824 Hematocrit (Bld) [Volume fraction] 41.3 % Normal 34.0-46.6 [facility]; [facility] Work Phone: Comment on above: PATIENT WAS FASTINGP ERFORMED BY: [place] [id number] [facility] [id number] Information: [id number],T02671 Hemoglobin (Bld) [Mass/Vol] 14.4 g/dL Normal 11.1-15.9 [facility]; [facility] Work Phone: Comment on above: PATIENT WAS FASTINGP ERFORMED BY: [place] [id number] [facility] [id number] Information: [id number] Immature granulocytes (Bld) [#/Vol] 0.0 10*3/uL Normal 0.0-0.1 [facility]; [facility] Work Phone: Comment on above: PATIENT WAS FASTINGP ERFORMED BY: [place] [id number] [facility] [id number] Information: 035336,[id number] Immature granulocytes/100 WBC (Bld) 0 % Normal 0-2 [facility]; [facility] Work Phone: Comment on above: PATIENT WAS FASTINGP ERFORMED BY: [address] [id number] Information: [id number],[id number] Lymphocytes (Bld) [#/Vol] 1.8 10*3/uL Normal 0.7-3.1 [facility]; [facility] Work Phone: Comment on above: PATIENT WAS FASTINGP ERFORMED BY: [address] [id number] Information: [id number],[id number] Lymphocytes/100 WBC (Bld) 30 % Normal 14-46 [facility]; [facility] Work Phone: Comment on above: PATIENT WAS FASTINGP ERFORMED BY: [address] [id number] Information: [id number] MCH (RBC) [Entitic mass] 31.8 pg Normal 26.6-33.0 [facility]; [facility] Work Phone: Comment on above: PATIENT WAS FASTINGP ERFORMED BY: [address] [id number] Information: [id number] MCHC (RBC) [Mass/Vol] 34.9 g/dL Normal 31.5-35.7 [facility] prehensive Internal Medicine; [facility] Work Phone: Comment on above: PATIENT WAS FASTINGP ERFORMED BY: [place] [id number] [facility] [id number] Information: [id number],G71542 MCV (RBC) [Entitic vol] 91 fL Normal 79-97 [facility]; [facility] Work Phone: Comment on above: PATIENT WAS FASTINGP ERFORMED BY: ESTELLA Aviles[address] [facility] HospitalNobleSloop [facility] [id number] Information: [id number] Monocytes (Bld) [#/Vol] 0.5 10*3/uL Normal 0.1-0.9 [facility]; [facility] Work Phone: Comment on above: PATIENT WAS FASTINGP ERFORMED BY: SETELLA Aviles6370 [facility] [id number] Information: [id number],L26504 Monocytes/100 WBC (Bld) 8 % Normal 4-12 [facility]; [facility] Work Phone: Comment on above: PATIENT WAS FASTINGP ERFORMED BY: ESTELLA Aviles6370 [facility] [id number] Information: [id number],P22044 Neutrophils (Bld) [#/Vol] 3.8 10*3/uL Normal 1.4-7.0 [facility]; [facility] Work Phone: Comment on above: PATIENT WAS FASTINGP ERFORMED BY: ESTELLA Aviles6370 [facility] [id number] Information: [id number] Neutrophils/100 WBC (Bld) 59 % Normal 40-74 [facility]; [facility] Work Phone: Comment on above: PATIENT WAS FASTINGP ERFORMED BY: ESTELLA LabCojose martin OlguinMokpsa1378 [facility] [id number] Information: [id number],F94885 Platelets (Bld) [#/Vol] 316 10*3/uL Normal 150-379 [facility]; [facility] Work Phone: Comment on above: PATIENT WAS FASTINGP ERFORMED BY: ESTELLA LabCojose martin OlguinVdblvb6060 [facility] [id number] Information: [id number],[id number] RBC (Bld) [#/Vol] 4.53 10*6/uL Normal 3.77-5.28 [facility]; [facility] Work Phone: Comment on above: PATIENT WAS FASTINGP ERFORMED BY: ESTELLA Aviles6[address] [place] [id number] Information: [id number] WBC (Bld) [#/Vol] 6.2 10*3/uL Normal 3.4-10.8 [facility]; [facility] Work Phone: Comment on above: PATIENT WAS FASTINGP ERFORMED BY: ESTELLA Aviles6[address] RoadNovant Health Matthews Medical Centerin [place] [id number] Information: [id number] LIPID PANEL (46627)Ordered B y: Director Of Clinical Trials on 05-23-2014 Cholesterol [Mass/Vol] 198 mg/dL Normal 100-199 [facility] Internal [facility]; [facility] Work Phone: Comment on above: PATIENT WAS FASTINGP ERFORMED BY: ESTELLA Olguinlin[address] [facility] [place] [id number] Cholesterol in HDL [Mass/Vol] 47 mg/dL Normal [facility]; [facility] Work Phone: Comment on above: According to ATP-III Guidelines, HDL-C >59 mg/dL is considered anegative risk factor for CHD. PATIENT WAS FASTINGP ERFORMED BY: ESTELLA LabBrianna OlguinYzqnzr8375 [address] [facility] [place] [id number] Cholesterol in LDL [Mass/Vol] 119 mg/dL Abnormal 0-99 [facility]; [facility] Work Phone: Comment on above: PATIENT WAS FASTINGP ERFORMED BY: ESTELLA [facility] Gjzxcq3704 [address] [facility] [place] [id number] Cholesterol in LDL/Cholesterol in HDL [Mass ratio] 2.5 {ratio_units} Normal 0.0-3.2 [facility]; [facility] Work Phone: Comment on above: PATIENT WAS FASTINGP ERFORMED BY: ESTELLA [facility] Pjddfg5027 [address] [facility]in [place] [id number] Cholesterol in VLDL [Mass/Vol] 32 mg/dL Normal 5-40 [facility]; [facility] Work Phone: Comment on above: PATIENT WAS FASTINGP ERFORMED BY: ESTELLA Edwige Aviles6370 [facility] [id number] Triglyceride [Mass/Vol] 160 mg/dL Abnormal 0-149 [facility]; [facility] Work Phone: Comment on above: PATIENT WAS FASTINGP ERFORMED BY: ESTELLA Edwige Aviles6370 [facility] [id number] METABOLIC PANEL, COMPREHENSI VE (05188)Ordered By: Director Of Clinical Trials on 05-23-2014 Albumin [Mass/Vol] 4.3 g/dL Normal 3.5-5.5 [facility]; [facility] Work Phone: Comment on above: PATIENT WAS FASTINGP ERFORMED BY: ESTELLA Jeysonjose martin Azjvxl7597 [facility] [id number] Albumin/Globulin [Mass ratio] 1.6 {ratio} Normal 1.1-2.5 [facility]; [facility] Work Phone: Comment on above: PATIENT WAS FASTINGP ERFORMED BY: ESTELLA Edwige Aviles6370 [facility] [id number] ALP [Catalytic activity/Vol] 80 U/L Normal 39-117 [facility]; [facility] Work Phone: Comment on above: PATIENT WAS FASTINGP ERFORMED BY: ESTELLA Edwige Aviles6370 [facility] [id number] ALT [Catalytic activity/Vol] 37 U/L Abnormal 0-32 [facility]; [facility] Work Phone: Comment on above: PATIENT WAS FASTINGP ERFORMED BY: ESTELLA Edwige Aviles6[address] [facility] [id number] AST [Catalytic activity/Vol] 27 U/L Normal 0-40 [facility]; [facility] Work Phone: Comment on above: PATIENT WAS FASTINGP ERFORMED BY: ESTELLA Jeyson Qfyeaw8000 [address]ba RoadNovant Health Matthews Medical Centerin [place] [id number] Bilirubin [Mass/Vol] 0.4 mg/dL Normal 0.0-1.2 [facility] rehensive Internal Medicine; [facility] Work Phone: Comment on above: PATIENT WAS FASTINGP ERFORMED BY: [facility] Rvwwdc1578 [address] [facility] [id number] Calcium [Mass/Vol] 9.2 mg/dL Normal 8.7-10.2 [facility]; [facility] Work Phone: Comment on above: PATIENT WAS FASTINGP ERFORMED BY: [facility]El[facility] Mskyho0484 Barba RoadNovant Health Matthews Medical Centerin [place] [id number] Chloride [Moles/Vol] 101 mmol/L Normal 97-108 [facility] rehensive Internal Medicine; [facility] Work Phone: Comment on above: PATIENT WAS FASTINGP ERFORMED BY: LabAscension [facility]-Pipp Hospital6[address] [facility] [id number] CO2 [Moles/Vol] 26 mmol/L Normal 18-29 [facility] Internal [facility]; [facility] Work Phone: Comment on above: PATIENT WAS FASTINGP ERFORMED BY: [facility]El[facility] Ovdakr2030 [facility] [id number] Creatinine [Mass/Vol] 0.85 mg/dL Normal 0.57-1.00 [facility]; [facility] Work Phone: Comment on above: PATIENT WAS FASTINGP ERFORMED BY: [facility]El[facility] Zibieo6564 [address] [facility] [id number] GFR/1.73 sq M.predicted among blacks CKD-EPI (S/P/Bld) [Vol rate/Area] 93 mL/min/1.73 Normal [facility]; [facility] Work Phone: Comment on above: PATIENT WAS FASTINGP ERFORMED BY: [facility] Cgsnvy6350 [address] [facility] [id number] GFR/1.73 sq M.predicted among non-blacks CKD-EPI (S/P/Bld) [Vol rate/Area] 81 mL/min/1.73 Normal [facility]; [facility] Work Phone: Comment on above: PATIENT WAS FASTINGP ERFORMED BY: ESTELLA LabCojose martin Rfbfff0320 [address]ba RoadDublin [place] [id number] Globulin (S) [Mass/Vol] 2.7 g/dL Normal 1.5-4.5 C omprehensive Internal Medicine; [facility] Work Phone: Comment on above: PATIENT WAS FASTINGP ERFORMED BY: ESTELLA [facility] Bctrsb5283 Barba RoadDublin [place] [id number] Glucose [Mass/Vol] 93 mg/dL Normal 65-99 [facility]; [facility] Work Phone: Comment on above: PATIENT WAS FASTINGP ERFORMED BY: ESTELLA [facility] Vstzfg6557 Barba RoadDublin [place] [id number] Potassium [Moles/Vol] 4.8 mmol/L Normal 3.5-5.2 [facility]; [facility] Work Phone: Comment on above: PATIENT WAS FASTINGP ERFORMED BY: ESTELLA [facility] Cmoxof9483 Barba RoadDublin [place] [id number] Protein [Mass/Vol] 7.0 g/dL Normal 6.0-8.5 [facility]; [facility] Work Phone: Comment on above: PATIENT WAS FASTINGP ERFORMED BY: [facility] Xvyjuj3736 Barba RoadDublin [place] [id number] Sodium [Moles/Vol] 141 mmol/L Normal 134-144 [facility]; [facility] Work Phone: Comment on above: PATIENT WAS FASTINGP ERFORMED BY: [facility] Gjpsnz8587 Barba RoadDublin [place] [id number] Urea nitrogen [Mass/Vol] 12 mg/dL Normal 6-24 [facility]; [facility] Work Phone: Comment on above: PATIENT WAS FASTINGP ERFORMED BY: [facility] Zgouls17[address] RoadDublin [place] [id number] Urea nitrogen/Creatinine [Mass ratio] 14 mg/mg Normal 9-23 [facility]; [facility] Work Phone: Comment on above: PATIENT WAS FASTINGP ERFORMED BY: ESTELLA WernerBrianna OlguinNwrjkw1072 Barba RoadDublin [place] [id number] TSH ([id number])Ordered By: ethology m Journalism Internship on 05-23-2014 TSH Qn 1.540 {uIU/mL} Normal 0.450-4.500 Comprehen sive Internal Medicine; [facility] Work Phone: Comment on above: PATIENT WAS FASTINGP ERFORMED BY: ESTELLA Aviles6[address]blin [place] [id number] URINALYSIS, W/ MICRO ([id number]) Ordered By: Director Of Clinical Trials on 05-23-2014 Appearance (U) Clear Normal Comprehens pearl Internal Medicine; [facility] Work Phone: Comment on above: PATIENT WAS FASTINGP ERFORMED BY: ESTELLA Olguinlin6[address] RoadDublin [place] [id number] Bilirubin Ql (U) Negative Normal Comprehe nsive Internal Medicine; [facility] Work Phone: Comment on above: PATIENT WAS FASTINGP ERFORMED BY: ESTELLA Olguinlin6[address] RoadDublin [place] [id number] Color (U) Yellow Normal [facility]; [facility] Work Phone: Comment on above: PATIENT WAS FASTINGP ERFORMED BY: ESTELLA Aviles[address] RoadDublin [place] [id number] Glucose Ql (U) Negative Normal Comprehens pearl [facility]; [facility] Work Phone: Comment on above: PATIENT WAS FASTINGP ERFORMED BY: ESTELLA Olguinlin6[address]Dublin [place] [id number] Hemoglobin Ql (U) Negative Normal Compreh ensive Internal Medicine; [facility] Work Phone: Comment on above: PATIENT WAS FASTINGP ERFORMED BY: ESTELLA Olguinlin6[address]Dublin [place] [id number] Ketones Ql (U) Negative Normal Comprehens pearl Internal Medicine; [facility] Work Phone: Comment on above: PATIENT WAS FASTINGP ERFORMED BY: ESTELLA LabBrianna Aviles[address] [facility]bl[facility] [place] [id number] Leukocyte esterase Test strip Ql (U) Negative Normal [facility]; [facility] Work Phone: Comment on above: PATIENT WAS FASTINGP ERFORMED BY: ESTELLA [facility] Bqzjvd[address] [facility] [id number] Microscopic observation LM Nom (Urine sed) MICRON Normal [facility]; [facility] Work Phone: Comment on above: Microscopic follows if indicated. PATIENT WAS FASTINGP ERFORMED BY: ESTELLA [facility] Ulpuhu[address] [facility] [id number] Microscopic observation LM Nom (Urine sed) See below: Normal [facility]; [facility] Work Phone: Comment on above: Microscopic was juan carlos cated and was performed. PATIENT WAS FASTINGP ERFORMED BY: ESTELLA LabCojose martin Qzpdko[address] [facility] [id number] Nitrite Ql (U) Negative Normal Comprehens pearl Internal Medicine; [facility] Work Phone: Comment on above: PATIENT WAS FASTINGP ERFORMED BY: ESTELLA LabBrianna OlguinYpcasv[address] [facility] [id number] pH (U) 6.0 [pH] Normal 5.0-7.5 [facility]; [facility] Work Phone: Comment on above: PATIENT WAS FASTINGP ERFORMED BY: ESTELLA [facility] Rddpdb[address] [facility] [id number] Protein Ql (U) Negative Normal Comprehens pearl Internal Medicine; [facility] Work Phone: Comment on above: PATIENT WAS FASTINGP ERFORMED BY: ESTELLA [facility] Yuxjnu[address] [facility] [id number] Specific gravity (U) [Rel density] 1.021 1 Normal 1.005-1.030 [facility]; [facility] Work Phone: Comment on above: PATIENT WAS FASTINGP ERFORMED BY: [employer] Ygkwbp7238 [address] RoadDublin [place] [id number] Urobilinogen (U) [Mass/Vol] 0.2 mg/dL Normal 0.0-1.9 [facility]; [facility] Work Phone: Comment on above: PATIENT WAS FASTINGP ERFORMED BY: Work4 [facility] Vjqftw4[address] RoadDublin [place] [id number] VITAMIN B-12 (CYANOCOBALAMIN ) ([id number])Ordered By: Director Of Clinical Trials on 05-23-2014 Cobalamin (Vitamin B12) [Mass/Vol] 317 pg/mL Normal 211-946 [facility]; [facility] Work Phone: Comment on above: PATIENT WAS FASTINGP ERFORMED BY: [employer] Cgtgdh4956 [address] RoadDublin [place] [id number] Vitamin D Hydroxy (33334)Ord ered By: Director Of Clinical Trials on 05-23-2014 25-hydroxyvitamin D [Mass/Vol] 22.7 ng/mL Abnormal 30.0-100.0 [facility]; [facility] Work Phone: Comment on above: Vitamin D deficiency has been defined by the [place] ofMedicine and an Endocrine Society practice guideline as alevel of serum 25-OH vitamin D less than 20 ng/mL (1,2).The Endocrine Society went on to further define vitamin Dinsufficiency as a level between 21 and 29 ng/mL (2).1. IOM ([place] of Medicine). 2010. Dietary reference intakes for calcium and D. [place]: The National Academies Press.2. Pat MF, Linus [place], Evelin MCPHERSON, et al. Evaluation, treatment, and prevention of vitamin D deficiency: an Endocrine Society clinical practice guideline. JCEM. 2010; 96(7):1911-30. PATIENT WAS FASTINGP ERFORMED BY: Work4 [facility] Njobfs5336 Bar[address] RoadDublin [place] [id number] Thin prep Pap (60411) (no ST D testing)Ordered By: Director Of Clinical Trials on 05-15-2014 Microscopic observation Other stain Nom (Unsp spec) . Normal [facility]; [facility] Work Phone: Comment on above: Source.............C ervical;EndocervicalNo. of containers..01 CYTYC Thin Prep VialPATIENT NOT FASTINGPERFORMED BY: [employer] [id number] Information: [id number] Pathology report final diagnosis Narrative SPRCS Normal Comprehensiv e Internal Medicine; [facility] Work Phone: Comment on above: NEGATIVE FOR INTRAEP ITHELIAL LESION AND MALIGNANCY.FUNGAL ORGANISMS MORPHOLOGICALLY CONSISTENT WITH YAMILKA SPECIES AREPRESENT.THIS SPECIMEN WAS RESCREENED PART OF OUR BIOMASS FACILITATOR PROGRAM.Satisfactory for evaluation. No endocervical component is identified.V72.31 ; Routine gynecological examinationKatrina Garcia Material Handling Crew Supervisor (ASCP)Sherly Moore Material Handling Crew Supervisor (ASCP) Source.............C ervical;EndocervicalNo. of containers..01 CYTYC Thin Prep VialPATIENT NOT FASTINGPERFORMED BY: [employer] [id number] Information: [id number] Thin prep Pap (20797) (no STD testing) PAPSMR Normal [facility]; [facility] Work Phone: Comment on above: The Pap smear is a s creening test designed to aid in the detection ofpremalignant and malignant conditions of the uterine cervix. It is not adiagnostic procedure and should not be used as the sole means of detectingcervical cancer. Both false-positive and false-negative reports do occur. .This liquid based ThinPrep(R) pap test was screened with theuse of an image guided system.The HPV DNA reflex criteria were not met with this specimen resulttherefore, no HPV testing was performed. . Source.............C ervical;EndocervicalNo. of containers..01 CYTYC Thin Prep VialPATIENT NOT FASTINGPERFORMED BY: WB [facility]Co[address] [id number] Information: [id number] Rapid Strep Test, Office (22 605)Ordered By: Anca Villarreal on 12-09-2012 S. pyogenes Ag EIA Ql (Throat) Negative Normal [facility]; [facility] Work Phone: Throat Culture ([id number])Ordere d By: Director Of Clinical Trials on 12-09-2012 Bacteria identified Respiratory culture Nom (Unsp spec) Final report Normal [facility]; [facility] Work Phone: Comment on above: PATIENT NOT FASTINGP ERFORMED BY: zerved Ceptaris TherapeuticsSloop [facility] Hospital [id number] Information: SRC:VANDANA [id number] Bacteria identified Respiratory culture Nom (Unsp spec) BETAGA Normal [facility]; [facility] Work Phone: Comment on above: Beta hemolytic Strep tococcus, group ALight growthPenicillin and ampicillin are drugs of choice for treatment ofbeta-hemolytic streptococcal infections. Susceptibility testing ofpenicillins and other beta-lactam agents approved by the FDA fortreatment of beta-hemolytic streptococcal infections need not beperformed routinely because nonsusceptible isolates are extremelyrare in any beta-hemolytic streptococcus and have not been reportedfor Streptococcus pyogenes (group A). (CLSI 2011) PATIENT NOT FASTINGP ERFORMED BY: zerved Ghdrtr5458 Capture MediaSloop Memorial Hospital [id number] Information: SRC:THRT [id number] VITAMIN B-12 (CYANOCOBALAMIN ) (78853)Ordered By: Director Of Clinical Trials on 08-15-2010 Cobalamin (Vitamin B12) [Mass/Vol] 485 pg/mL Normal 211-946 [facility]; [facility] Work Phone: Comment on above: PATIENT NOT FASTINGP ERFORMED BY: Porphyrio Rvwmnh7560 [facility] MediaSloop [facility] Hospital [id number] Vitamin D Hydroxy (60378)Ord ered By: Director Of Clinical Trials on 08-15-2010 1,25-dihydroxyvitamin D3 [Mass/Vol] 24.7 ng/mL Abnormal 32.0-100.0 [facility]; [facility] Work Phone: Comment on above: Recent studies consi nakia the lower limit of 32.0 ng/mL to be athreshold for optimal health.Tom [place]IN[place]. J Nutr. 2004;135(2):317-22. PATIENT NOT FASTINGP ERFORMED BY: LabCoChrist HospitalAwlsxe3963 [facility] [id number] Vital Signs Date Time Vital Sign Value Performing Clinician Facility 04-14-2025 08:13-0400 Body height 160.[address] Shonda Stinson MD Work Phone: [facility] 04-14-2025 08:13-0400 Body mass index (BMI) [Ratio] 35.6 kg/m2 Dr. Shonda Stinson MD Work Phone: [facility] 04-14-2025 08:13-0400 Body weight 91.[address] Shonda Stinson MD Work Phone: [facility] 04-14-2025 08:13-0400 Diastolic blood pressure 78 mm[Hg] Dr. Shonda Stinson MD Work Phone: [facility] 04-14-2025 08:13-0400 Heart rate 92 /min Dr. Shonda Stinson MD Work Phone: [facility] 04-14-2025 08:13-0400 SaO2% (BldA) [Mass fraction] 97 % Dr. Shonda Stinson MD Work Phone: [facility] 04-14-2025 08:13-0400 Systolic blood pressure 142 mm[Hg] Dr. Shonda Stinson MD Work Phone: [facility] 03-02-2025 14:10-0400 Body height 160.[address] Shonda Stinson MD Work Phone: [facility] 03-02-2025 14:10-0400 Body mass index (BMI) [Ratio] 35.2 kg/m2 Dr. Shonda Stinson MD Work Phone: [facility] 03-02-2025 14:10-0400 Body temperature 98.8 [degF] Dr. Shonda Stinson MD Work Phone: [facility] 03-02-2025 14:10-0400 Body weight 90.[address] Shonda Stinson MD Work Phone: [facility] 03-02-2025 14:10-0400 Diastolic blood pressure 90 mm[Hg] Dr. Shonda Stinson MD Work Phone: [facility] 03-02-2025 14:10-0400 Heart rate 73 /min Dr. Shonda Stinson MD Work Phone: [facility] 03-02-2025 14:10-0400 Respiratory rate 18 /min Dr. Shonda Stinson MD Work Phone: [facility] 03-02-2025 14:10-0400 SaO2% (BldA) [Mass fraction] 98 % Dr. Shonda Stinson MD Work Phone: [facility] 03-02-2025 14:10-0400 Systolic blood pressure 155 mm[Hg] Dr. Shonda Stinson MD Work Phone: [facility] 10-19-2023 09:02-0500 Diastolic blood pressure 86 mm[Hg] Dr. Shonda Stinson Work Phone: [facility] 10-19-2023 09:02-0500 Systolic blood pressure 148 mm[Hg] Dr. Shonda Stinson Work Phone: [facility] 10-19-2023 08:55-0500 Body height 160.[address] Shonda Stinson Work Phone: [facility] 10-19-2023 08:55-0500 Body mass index (BMI) [Ratio] 35.9 kg/m2 Dr. Shonda Stinson Work Phone: [facility] 10-19-2023 08:55-0500 Body temperature 98.6 [degF] Dr. Shonda Stinson Work Phone: [facility] 10-19-2023 08:55-0500 Body weight 92.[address] Shonda Stinson Work Phone: [facility] 10-19-2023 08:55-0500 Heart rate 69 /min Dr. Shonda Stinson Work Phone: [facility] 10-19-2023 08:55-0500 Respiratory rate 16 /min Dr. Shonda Stinson Work Phone: [facility] 10-19-2023 08:55-0500 SaO2% (BldA) [Mass fraction] 97 % Dr. Shonda Stinson Work Phone: [facility] 09-17-2023 14:07-0500 Body height 160.[address] Shonda Stinson Work Phone: [facility] 09-17-2023 14:05-0500 Body mass index (BMI) [Ratio] 34.3 kg/m2 Dr. Shonda Stinson Work Phone: [facility] 09-17-2023 14:05-0500 Body temperature 97.7 [degF] Dr. Shonda Stinson Work Phone: [facility] 09-17-2023 14:05-0500 Body weight 90.[address] Shonda Stinson Work Phone: [facility] 09-17-2023 14:05-0500 Diastolic blood pressure 88 mm[Hg] Dr. Shonda Stinson Work Phone: [facility] 09-17-2023 14:05-0500 Heart rate 79 /min Dr. Shonda Stinson Work Phone: [facility] 09-17-2023 14:05-0500 Respiratory rate 18 /min Dr. Shonda Stinson Work Phone: [facility] 09-17-2023 14:05-0500 SaO2% (BldA) [Mass fraction] 98 % Dr. Shonda Stinson Work Phone: 4(416)942-882979 [address] 09-17-2023 14:05-0500 Systolic blood pressure 153 mm[Hg] Dr. Shonda Stinson Work Phone: 5(314)758-678079 [address] 08-25-2023 13:09-0500 Body temperature 97.1 [degF] Dr. Shonda Stinson Work Phone: 8(813)955-428687 [place] [address] 08-25-2023 13:09-0500 Diastolic blood pressure 80 mm[Hg] Dr. Shonda Stinson Work Phone: 5(313)431-517187 [place] [address] 08-25-2023 13:09-0500 Heart rate 85 /min Dr. Shonda Stinson Work Phone: 8(547)582-669887 [place] [address] 08-25-2023 13:09-0500 Respiratory rate 16 /min Dr. Shonda Stinson Work Phone: 4(288)462-712487 [place] [address] 08-25-2023 13:09-0500 SaO2% (BldA) [Mass fraction] 97 % Dr. Shonda Stinson Work Phone: 5(936)933-373449 [place] [address] 08-25-2023 13:09-0500 Systolic blood pressure 138 mm[Hg] Dr. Shonda Stinson Work Phone: 9(169)368-179887 [place] [address] 08-25-2023 06:23-0500 Body height 160.[address] Shonda Stinson Work Phone: 2(096)526-438187 [place] [address] 08-25-2023 06:23-0500 Body mass index (BMI) [Ratio] 35 kg/m2 Dr. Shonda Stinson Work Phone: 7(201)192-817849 [place] [address] 08-25-2023 06:23-0500 Body weight 89.[address] Shonda Stinson Work Phone: 6(202)938-126979 [address] 07-20-2023 14:53-0400 Body height 162.[address] Shonda Stinson Work Phone: 0(542)411-538649 [place] [address] 07-20-2023 14:53-0400 Body mass index (BMI) [Ratio] 34.4 kg/m2 Dr. Shonda Stinson Work Phone: 0(632)316-526349 [place] [address] 07-20-2023 14:53-0400 Body temperature 97.8 [degF] Dr. Shonda Stinson Work Phone: [facility] 07-20-2023 14:53-0400 Body weight 90.[address] Shonda Stinson Work Phone: [facility] 07-20-2023 14:53-0400 Diastolic blood pressure 83 mm[Hg] Dr. Shonda Stinson Work Phone: [facility] 07-20-2023 14:53-0400 Heart rate 83 /min Dr. Shonda Stinson Work Phone: [facility] 07-20-2023 14:53-0400 Respiratory rate 18 /min Dr. Shonda Stinson Work Phone: [facility] 07-20-2023 14:53-0400 SaO2% (BldA) [Mass fraction] 97 % Dr. Shonda Stinson Work Phone: [facility] 07-20-2023 14:53-0400 Systolic blood pressure 124 mm[Hg] Dr. Shonda Stinson Work Phone: [facility] 06-10-2023 08:26-0400 Body mass index (BMI) [Ratio] 34.4 kg/m2 Dr. Shonda Stinson Work Phone: [facility] 06-10-2023 08:26-0400 Body weight 91.[address] Shonda Stinson Work Phone: [facility] 06-10-2023 08:26-0400 Diastolic blood pressure 77 mm[Hg] Dr. Shonda Stinson Work Phone: [facility] 06-10-2023 08:26-0400 Respiratory rate 16 /min Dr. Shonda Stinson Work Phone: [facility] 06-10-2023 08:26-0400 Systolic blood pressure 144 mm[Hg] Dr. Shonda Stinson Work Phone: [facility] 05-28-2023 14:11-0400 Body mass index (BMI) [Ratio] 34.5 kg/m2 Dr. Shonda Stinson Work Phone: [facility] 05-28-2023 14:11-0400 Body temperature 98.3 [degF] Dr. Shonda Stinson Work Phone: [facility] 05-28-2023 14:11-0400 Body weight 91.[address] Shonda Stinson Work Phone: [facility] 05-28-2023 14:11-0400 Diastolic blood pressure 88 mm[Hg] Dr. Shonda Stinson Work Phone: [facility] 05-28-2023 14:11-0400 Heart rate 68 /min Dr. Shonda Stinson Work Phone: [facility] 05-28-2023 14:11-0400 Respiratory rate 16 /min Dr. Shonda Stinson Work Phone: [facility] 05-28-2023 14:11-0400 SaO2% (BldA) [Mass fraction] 100 % Dr. Shonda Stinson Work Phone: [facility] 05-28-2023 14:11-0400 Systolic blood pressure 146 mm[Hg] Dr. Shonda Stinson Work Phone: [facility] 03-17-2023 14:34-0400 Body height 162.[address] Shonda Stinson Work Phone: [facility] 03-17-2023 14:32-0400 Body mass index (BMI) [Ratio] 34.4 kg/m2 Dr. Shonda Stisnon Work Phone: [facility] 03-17-2023 14:32-0400 Body temperature 96 [degF] Dr. Shonda Stinson Work Phone: [facility] 03-17-2023 14:32-0400 Body weight 90.[address] Shonda Stinson Work Phone: [facility] 03-17-2023 14:32-0400 Diastolic blood pressure 83 mm[Hg] Dr. Shonda Stinson Work Phone: [facility] 03-17-2023 14:32-0400 Heart rate 73 /min Dr. Shonda Stinson Work Phone: [facility] 03-17-2023 14:32-0400 Respiratory rate 18 /min Dr. Shonda Stinson Work Phone: [facility] 03-17-2023 14:32-0400 SaO2% (BldA) [Mass fraction] 99 % Dr. Shonda Stinson Work Phone: [facility] 03-17-2023 14:32-0400 Systolic blood pressure 123 mm[Hg] Dr. Sohnda Stinson Work Phone: [facility] 02-26-2023 15:02-0400 Body mass index (BMI) [Ratio] 34.9 kg/m2 Dr. Shonda Stinson Work Phone: [facility] 02-26-2023 15:02-0400 Body temperature 98.7 [degF] Dr. Shonda Stinson Work Phone: [facility] 02-26-2023 15:02-0400 Body weight 92.[address] Shonda Stinson Work Phone: [facility] 02-26-2023 15:02-0400 Diastolic blood pressure 93 mm[Hg] Dr. Shonda Stinson Work Phone: [facility] 02-26-2023 15:02-0400 Heart rate 88 /min Dr. Shonda Stinson Work Phone: [facility] 02-26-2023 15:02-0400 Respiratory rate 16 /min Dr. Shonda Stinson Work Phone: [facility] 02-26-2023 15:02-0400 SaO2% (BldA) [Mass fraction] 98 % Dr. Shonda Stinson Work Phone: [facility] 02-26-2023 15:02-0400 Systolic blood pressure 147 mm[Hg] Dr. Shonda Stinson Work Phone: [facility] 02-19-2023 13:30-0400 Body mass index (BMI) [Ratio] 35.4 kg/m2 Dr. Shonda Stinson Work Phone: [facility] 02-19-2023 13:30-0400 Body temperature 98.2 [degF] Dr. Shonda Stinson Work Phone: [facility] 02-19-2023 13:30-0400 Body weight 93.[address] Shonda Stinson Work Phone: [facility] 02-19-2023 13:30-0400 Diastolic blood pressure 99 mm[Hg] Dr. Shonda Stinson Work Phone: [facility] 02-19-2023 13:30-0400 Heart rate 94 /min Dr. Shonda Stinson Work Phone: [facility] 02-19-2023 13:30-0400 Respiratory rate 16 /min Dr. Shonda Stinson Work Phone: [facility] 02-19-2023 13:30-0400 SaO2% (BldA) [Mass fraction] 98 % Dr. Shonda Stinson Work Phone: [facility] 02-19-2023 13:30-0400 Systolic blood pressure 164 mm[Hg] Dr. Shonda Stinson Work Phone: [facility] 02-04-2023 14:37-0400 Body mass index (BMI) [Ratio] 34.4 kg/m2 Dr. Shonda Stinson Work Phone: [facility] 02-04-2023 14:37-0400 Body temperature 97.4 [degF] Dr. Shonda Stinson Work Phone: [facility] 02-04-2023 14:37-0400 Body weight 91.[address] Shonda Stinson Work Phone: [facility] 02-04-2023 14:37-0400 Diastolic blood pressure 96 mm[Hg] Dr. Shonda Stinson Work Phone: [facility] 02-04-2023 14:37-0400 Heart rate 67 /min Dr. Shonda Stinson Work Phone: [facility] 02-04-2023 14:37-0400 Respiratory rate 16 /min Dr. Shonda Stinson Work Phone: [facility] 02-04-2023 14:37-0400 SaO2% (BldA) [Mass fraction] 97 % Dr. Shonda Stinson Work Phone: [facility] 02-04-2023 14:37-0400 Systolic blood pressure 151 mm[Hg] Dr. Shonda Stinson Work Phone: [facility] 01-28-2023 14:36-0400 Body mass index (BMI) [Ratio] 34.8 kg/m2 Dr. Shonda Stinson Work Phone: [facility] 01-28-2023 14:36-0400 Body temperature 97.5 [degF] Dr. Shonda Stinson Work Phone: [facility] 01-28-2023 14:36-0400 Body weight 92.[address] Shonda Stinson Work Phone: [facility] 01-28-2023 14:36-0400 Diastolic blood pressure 97 mm[Hg] Dr. Shonda Stinson Work Phone: [facility] 01-28-2023 14:36-0400 Heart rate 72 /min Dr. Shonda Stinson Work Phone: [facility] 01-28-2023 14:36-0400 Respiratory rate 18 /min Dr. Shonda Stinson Work Phone: [facility] 01-28-2023 14:36-0400 SaO2% (BldA) [Mass fraction] 97 % Dr. Shonda Stinson Work Phone: [facility] 01-28-2023 14:36-0400 Systolic blood pressure 161 mm[Hg] Dr. Shonda Stinson Work Phone: [facility] 01-21-2023 14:44-0400 Body mass index (BMI) [Ratio] 34.5 kg/m2 Dr. Shonda Stinson Work Phone: [facility] 01-21-2023 14:44-0400 Body temperature 97.3 [degF] Dr. Shonda Stinson Work Phone: [facility] 01-21-2023 14:44-0400 Body weight 91.[address] hSonda Stinson Work Phone: [facility] 01-21-2023 14:44-0400 Diastolic blood pressure 90 mm[Hg] Dr. Shonda Stinson Work Phone: [facility] 01-21-2023 14:44-0400 Heart rate 67 /min Dr. Shonda Stinson Work Phone: [facility] 01-21-2023 14:44-0400 Respiratory rate 16 /min Dr. Shonda Stinson Work Phone: [facility] 01-21-2023 14:44-0400 SaO2% (BldA) [Mass fraction] 96 % Dr. Shonda Stinson Work Phone: [facility] 01-21-2023 14:44-0400 Systolic blood pressure 147 mm[Hg] Dr. Shonda Stinson Work Phone: [facility] 12-26-2022 09:03-0400 Body height 162.[address] Shonda Stinson Work Phone: [facility] 12-26-2022 09:00-0400 Body mass index (BMI) [Ratio] 34 kg/m2 Dr. Shonda Stinson Work Phone: [facility] 12-26-2022 09:00-0400 Body temperature 96.5 [degF] Dr. Shonda Stinson Work Phone: [facility] 12-26-2022 09:00-0400 Body weight 89.[address] Shonda Stinson Work Phone: [facility] 12-26-2022 09:00-0400 Diastolic blood pressure 89 mm[Hg] Dr. Shonda Stinson Work Phone: [facility] 12-26-2022 09:00-0400 Heart rate 67 /min Dr. Shonda Stinson Work Phone: [facility] 12-26-2022 09:00-0400 Respiratory rate 16 /min Dr. Shonda Stinson Work Phone: [facility] 12-26-2022 09:00-0400 SaO2% (BldA) [Mass fraction] 96 % Dr. Shonda Stinson Work Phone: [facility] 12-26-2022 09:00-0400 Systolic blood pressure 136 mm[Hg] Dr. Shonda Stinson Work Phone: [facility] 12-25-2022 14:21-0400 Body mass index (BMI) [Ratio] 34 kg/m2 Dr. Shonda Stinson Work Phone: [facility] 12-25-2022 14:21-0400 Body temperature 97.6 [degF] Dr. Shonda Stinson Work Phone: [facility] 12-25-2022 14:21-0400 Body weight 89.[address] Shonda Stinson Work Phone: [facility] 12-25-2022 14:21-0400 Diastolic blood pressure 92 mm[Hg] Dr. Shonda Stinson Work Phone: [facility] 12-25-2022 14:21-0400 Heart rate 93 /min Dr. Shonda Stinson Work Phone: [facility] 12-25-2022 14:21-0400 Respiratory rate 18 /min Dr. Shonda Stinson Work Phone: [facility] 12-25-2022 14:21-0400 SaO2% (BldA) [Mass fraction] 99 % Dr. Shonda Stinson Work Phone: [facility] 12-25-2022 14:21-0400 Systolic blood pressure 158 mm[Hg] Dr. Shonda Stinson Work Phone: [facility] 12-24-2022 09:02-0400 Body mass index (BMI) [Ratio] 34 kg/m2 Dr. Shonda Stinsno Work Phone: [facility] 12-24-2022 09:02-0400 Body temperature 98.2 [degF] Dr. Shonda Stinson Work Phone: [facility] 12-24-2022 09:02-0400 Body weight 89.[address] Shonda Stinson Work Phone: [facility] 12-24-2022 09:02-0400 Diastolic blood pressure 88 mm[Hg] Dr. Shonda Stinson Work Phone: [phone] [place] [address] 12-24-2022 09:02-0400 Heart rate 69 /min Dr. Shonda Stinson Work Phone: [facility] 12-24-2022 09:02-0400 Respiratory rate 17 /min Dr. Shonda Stinson Work Phone: [facility] 12-24-2022 09:02-0400 SaO2% (BldA) [Mass fraction] 96 % Dr. Shonda Stinson Work Phone: [facility] 12-24-2022 09:02-0400 Systolic blood pressure 148 mm[Hg] Dr. Shonda Stinson Work Phone: [facility] 12-10-2022 10:25-0400 Body height 162.[address] Shonda Stinson Work Phone: [facility] 12-10-2022 10:17-0400 Body mass index (BMI) [Ratio] 33.9 kg/m2 Dr. Shonda Stinson Work Phone: [facility] 12-10-2022 10:17-0400 Body temperature 98.2 [degF] Dr. Shonda Stinson Work Phone: [facility] 12-10-2022 10:17-0400 Body weight 89.[address] Shonda Stinson Work Phone: [facility] 12-10-2022 10:17-0400 Diastolic blood pressure 85 mm[Hg] Dr. Shonda Stinson Work Phone: [facility] 12-10-2022 10:17-0400 Heart rate 67 /min Dr. Shonda Stinson Work Phone: [facility] 12-10-2022 10:17-0400 Respiratory rate 17 /min Dr. Shonda Stinson Work Phone: [facility] 12-10-2022 10:17-0400 SaO2% (BldA) [Mass fraction] 98 % Dr. Shonda Stinson Work Phone: [facility] 12-10-2022 10:17-0400 Systolic blood pressure 129 mm[Hg] Dr. Shonda Stinson Work Phone: [facility] 11-27-2022 08:25-0500 Body mass index (BMI) [Ratio] 33.8 kg/m2 Dr. Shonda Stinson Work Phone: [facility] 11-27-2022 08:25-0500 Body temperature 98.7 [degF] Dr. Shonda Stinson Work Phone: [facility] 11-27-2022 08:25-0500 Body weight 89.[address] Shonda Stinson Work Phone: [facility] 11-27-2022 08:25-0500 Diastolic blood pressure 89 mm[Hg] Dr. Shonda Stinson Work Phone: [facility] 11-27-2022 08:25-0500 Heart rate 76 /min Dr. Shonda Stinson Work Phone: [facility] 11-27-2022 08:25-0500 Respiratory rate 17 /min Dr. Shonda Stinson Work Phone: [facility] 11-27-2022 08:25-0500 Systolic blood pressure 140 mm[Hg] Dr. Shonda Stinson Work Phone: [facility] 11-13-2022 10:39-0500 Body temperature 98.9 [degF] Dr. Shonda Stinson Work Phone: [facility] 11-13-2022 10:39-0500 Diastolic blood pressure 78 mm[Hg] Dr. Shonda Stinson Work Phone: [facility] 11-13-2022 10:39-0500 Heart rate 90 /min Dr. Shonda Stinson Work Phone: [facility] 11-13-2022 10:39-0500 Respiratory rate 18 /min Dr. Shonda Stinson Work Phone: [facility] 11-13-2022 10:39-0500 SaO2% (BldA) [Mass fraction] 98 % Dr. Shonda Stinson Work Phone: [facility] 11-13-2022 10:39-0500 Systolic blood pressure 141 mm[Hg] Dr. Shonda Stinson Work Phone: [facility] 11-12-2022 16:41-0500 Body mass index (BMI) [Ratio] 34 kg/m2 Dr. Shonda Stinson Work Phone: [facility] 11-12-2022 16:41-0500 Body weight [address] Shonda Stinson Work Phone: [facility] 11-12-2022 15:15-0500 Inhaled oxygen flow rate 2 L/min Dr. Shonda Stinson Work Phone: [facility] 10-01-2022 10:12-0500 Body height 162.[address] Shonda Stinson Work Phone: [facility] 10-01-2022 10:12-0500 Body mass index (BMI) [Ratio] 33.8 kg/m2 Dr. Shonda Stinson Work Phone: [facility] 10-01-2022 10:12-0500 Body temperature 98.2 [degF] Dr. Shonda Stinson Work Phone: [facility] 10-01-2022 10:12-0500 Body weight 89.[address] Shonda Stinson Work Phone: [facility] 10-01-2022 10:12-0500 Diastolic blood pressure 91 mm[Hg] Dr. Shonad Stinson Work Phone: [facility] 10-01-2022 10:12-0500 Heart rate 80 /min Dr. Shonda Stinson Work Phone: [facility] 10-01-2022 10:12-0500 Respiratory rate 17 /min Dr. Shonda Stinson Work Phone: [facility] 10-01-2022 10:12-0500 SaO2% (BldA) [Mass fraction] 98 % Dr. Shonda Stinson Work Phone: [facility] 10-01-2022 10:12-0500 Systolic blood pressure 142 mm[Hg] Dr. Shonda Stinson Work Phone: [facility] 09-24-2022 08:45-0500 Body height 162.[address] [facility] Work Phone: 04-27-2015 10:10-0400 Respiratory rate 16 /min Jade A Fast DO Work Phone: [facility]; [facility] Work Phone: 04-27-2015 09:36-0400 Body height 161.93 cm [facility]; [facility] Work Phone: 04-27-2015 09:36-0400 Body mass index (BMI) [Ratio] 32.35 kg/m2 [facility]; [facility] Work Phone: 04-27-2015 09:36-0400 Body surface area Derived from formula 1.9 m2 [facility]; [facility] Work Phone: 04-27-2015 09:36-0400 Body temperature 97.5 [degF] [facility] Work Phone: 04-27-2015 09:36-0400 Body weight 84.82 kg [facility] Work Phone: 04-27-2015 09:36-0400 Diastolic blood pressure 70 mm[Hg] Hayley [facility]; [facility] Work Phone: Comment on above: Patient Position: Sitting; Cuff Location : Left Arm; Cuff Size: Standard 04-27-2015 09:36-0400 Heart rate 70 /min [facility] Work Phone: Comment on above: Pattern: Regular 04-27-2015 09:36-0400 SaO2% (BldA) [Mass fraction] 98 % [facility]; [facility] Work Phone: Comment on above: Room air 04-27-2015 09:36-0400 Systolic blood pressure 118 mm[Hg] Hayley [facility]; [facility] Work Phone: Comment on above: Patient Position: Sitting; Cuff Location : Left Arm; Cuff Size: Standard 05-31-2014 14:37-0400 Body height 161.93 cm [facility]; [facility] Work Phone: 05-31-2014 14:37-0400 Body mass index (BMI) [Ratio] 32.7 kg/m2 Sherly Dior [facility]; [facility] Work Phone: 05-31-2014 14:37-0400 Body surface area Derived from formula 1.9 m2 Sherly [facility]; [facility] Work Phone: 05-31-2014 14:37-0400 Body temperature 97.1 [degF] Sherly [facility]; [facility] Work Phone: 05-31-2014 14:37-0400 Body weight 85.73 kg Sherly Slaughterstephne [facility]; [facility] Work Phone: 05-31-2014 14:37-0400 Diastolic blood pressure 80 mm[Hg] Sherly Ovi [facility]; [facility] Work Phone: Comment on above: Patient Position: Sitting; Cuff Location : Left Arm; Cuff Size: Large 05-31-2014 14:37-0400 Heart rate 72 /min Sherly Ovi [facility]; [facility] Work Phone: Comment on above: Pattern: Regular 05-31-2014 14:37-0400 Respiratory rate 16 /min Sherly Ovi [facility]; [facility] Work Phone: Comment on above: Pattern: Unlabored 05-31-2014 14:37-0400 Systolic blood pressure 110 mm[Hg] Sherly Ovi [facility]; [facility] Work Phone: Comment on above: Patient Position: Sitting; Cuff Location : Left Arm; Cuff Size: Large 05-12-2014 13:37-0400 Body height 161.93 cm Sherly Ovi [facility]; [facility] Work Phone: 05-12-2014 13:37-0400 Body mass index (BMI) [Ratio] 32.7 kg/m2 Sherly Ovi [facility]; [facility] Work Phone: 05-12-2014 13:37-0400 Body surface area Derived from formula 1.9 m2 Sherly Dior [facility]; [facility] Work Phone: 05-12-2014 13:37-0400 Body temperature 98 [degF] Sherly Dior [facility]; [facility] Work Phone: 05-12-2014 13:37-0400 Body weight 85.73 kg Sherly Ovi [facility]; [facility] Work Phone: 05-12-2014 13:37-0400 Diastolic blood pressure 82 mm[Hg] Sherly Dior [facility]; [facility] Work Phone: Comment on above: Patient Position: Sitting; Cuff Location : Left Arm; Cuff Size: Large 05-12-2014 13:37-0400 Heart rate 72 /min Sherly Dior [facility]; [facility] Work Phone: Comment on above: Pattern: Regular 05-12-2014 13:37-0400 Respiratory rate 16 /min Sherly Dior [facility]; [facility] Work Phone: Comment on above: Pattern: Unlabored 05-12-2014 13:37-0400 Systolic blood pressure 136 mm[Hg] Sherly Ovi [facility]; [facility] Work Phone: Comment on above: Patient Position: Sitting; Cuff Location : Left Arm; Cuff Size: Large 12-09-2012 09:11-0400 Body height 160.02 cm Belen Perez RN [facility]; [facility] Work Phone: 12-09-2012 09:11-0400 Body mass index (BMI) [Ratio] 31.71 kg/m2 Belen Perez RN [facility]; [facility] Work Phone: 12-09-2012 09:11-0400 Body surface area Derived from formula 1.84 m2 Belen Perez RN [facility]; [facility] Work Phone: 12-09-2012 09:11-0400 Body temperature 98.5 [degF] Belen Perez [facility]; [facility] Work Phone: Comment on above: Method: Oral 12-09-2012 [id number] Body weight 81.19 kg Belen Perez RN [facility]; [facility] Work Phone: 12-09-2012 09:11-0400 Diastolic blood pressure 80 mm[Hg] Belen Perez RN [facility]; [facility] Work Phone: Comment on above: Patient Position: Sitting; Cuff Location : Left Arm; Cuff Size: Large 12-09-2012 09:11-0400 Heart rate 80 /min Belen Perez RN [facility]; [facility] Work Phone: Comment on above: Pattern: Regular 12-09-2012 09:11-0400 Respiratory rate 18 /min Belen Perez [facility]; [facility] Work Phone: Comment on above: Pattern: Unlabored 12-09-2012 09:11-0400 Systolic blood pressure 122 mm[Hg] Belen Perez RN [facility]; [facility] Work Phone: Comment on above: Patient Position: Sitting; Cuff Location : Left Arm; Cuff Size: Large 09-24-2010 10:21-0500 Body temperature 98 [degF] Sherly Dior [facility]; [facility] Work Phone: 09-24-2010 10:21-0500 Body weight 78.93 kg Sherly Dior [facility]; [facility] Work Phone: 09-24-2010 10:21-0500 Diastolic blood pressure 72 mm[Hg] Sherly Dior [facility]; [facility] Work Phone: Comment on above: Patient Position: Sitting; Cuff Location : Left Arm; Cuff Size: Standard 09-24-2010 10:21-0500 Heart rate 92 /min Sherly Dior [facility]; [facility] Work Phone: Comment on above: Pattern: Regular 09-24-2010 10:21-0500 Respiratory rate 16 /min Sherly Dior [facility]; [facility] Work Phone: Comment on above: Pattern: Unlabored 09-24-2010 10:21-0500 Systolic blood pressure 120 mm[Hg] Sherly Dior [facility]; [facility] Work Phone: Comment on above: Patient Position: Sitting; Cuff Location : Left Arm; Cuff Size: Standard 06-24-2010 11:41-0400 Body temperature 98.2 [degF] Radha Holt [facility]; [facility] Work Phone: Comment on above: Method: Oral 06-24-2010 11:41-0400 Body weight 79.1 kg Radha Holt [facility]; [facility] Work Phone: 06-24-2010 11:41-0400 Diastolic blood pressure 78 mm[Hg] Radha Holt [facility]; [facility] Work Phone: Comment on above: Patient Position: Sitting; Cuff Location : Left Arm; Cuff Size: Standard 06-24-2010 11:41-0400 Heart rate 76 /min Radha Holt [facility]; [facility] Work Phone: Comment on above: Pattern: Regular 06-24-2010 11:41-0400 Respiratory rate 18 /min Radha Holt [facility]; [facility] Work Phone: Comment on above: Pattern: Unlabored 06-24-2010 11:41-0400 Systolic blood pressure 128 mm[Hg] Radha Holt [facility]; [facility] Work Phone: Comment on above: Patient Position: Sitting; Cuff Location : Left Arm; Cuff Size: Standard 06-17-2010 13:30-0400 Body temperature 98.3 [degF] Sherly Dior [facility]; [facility] Work Phone: 06-17-2010 13:30-0400 Body weight 78.93 kg Sherly Dior [facility]; [facility] Work Phone: 06-17-2010 13:30-0400 Diastolic blood pressure 64 mm[Hg] Sherly Dior [facility]; [facility] Work Phone: Comment on above: Patient Position: Sitting; Cuff Location : Left Arm; Cuff Size: Standard 06-17-2010 13:30-0400 Heart rate 68 /min Sherly Dior [facility]; [facility] Work Phone: Comment on above: Pattern: Regular 06-17-2010 13:30-0400 Respiratory rate 18 /min Sherly Dior [facility]; [facility] Work Phone: Comment on above: Pattern: Unlabored 06-17-2010 13:30-0400 Systolic blood pressure 110 mm[Hg] Sherly Dior [facility]; [facility] Work Phone: Comment on above: Patient Position: Sitting; Cuff Location : Left Arm; Cuff Size: Standard 11-14-2009 08:41-0500 Diastolic blood pressure 77 mm[Hg] Jade A Fast DO Work Phone: [facility]; [facility] Work Phone: Comment on above: Patient Position: Sitting 11-14-2009 08:41-0500 Systolic blood pressure 128 mm[Hg] Jade A Fast DO Work Phone: [facility]; [facility] Work Phone: Comment on above: Patient Position: Sitting 11-13-2009 15:35-0500 Body temperature 98.6 [degF] Anastacia Rg RN [facility]; [facility] Work Phone: Comment on above: Method: Oral 11-13-2009 15:35-0500 Diastolic blood pressure 76 mm[Hg] Anastacia Rg RN [facility]; [facility] Work Phone: Comment on above: Patient Position: Sitting; Cuff Location : Left Arm; Cuff Size: Standard 11-13-2009 15:35-0500 Heart rate 68 /min Anastacia Rg RN [facility]; [facility] Work Phone: Comment on above: Pattern: Regular 11-13-2009 15:35-0500 Respiratory rate 14 /min Anastacia Rg RN [facility]; [facility] Work Phone: Comment on above: Pattern: Unlabored 11-13-2009 15:35-0500 Systolic blood pressure 140 mm[Hg] Anastacia Rg RN [facility]; [facility] Work Phone: Comment on above: Patient Position: Sitting; Cuff Location : Left Arm; Cuff Size: Standard 10-24-2009 11:55-0500 Body height 160.02 cm Sherly Dior [facility]; [facility] Work Phone: 10-24-2009 11:55-0500 Body mass index (BMI) [Ratio] 32.06 kg/m2 Sherly [facility]; [facility] Work Phone: 10-24-2009 11:55-0500 Body surface area Derived from formula 1.85 m2 Sherly Slaughterstephen [facility]; [facility] Work Phone: 10-24-2009 11:55-0500 Body temperature 97.8 [degF] Sherly Dior [facility]; [facility] Work Phone: 10-24-2009 11:55-0500 Body weight 82.1 kg Sherly Slaughterabrahanleona [facility]; [facility] Work Phone: 10-24-2009 11:55-0500 Diastolic blood pressure 82 mm[Hg] Sherly Dior [facility]; [facility] Work Phone: Comment on above: Patient Position: Sitting; Cuff Location : Right Arm; Cuff Size: Standard 10-24-2009 11:55-0500 Heart rate 72 /min Sherly Slaughterstephen [facility]; [facility] Work Phone: Comment on above: Pattern: Regular 10-24-2009 11:55-0500 Respiratory rate 18 /min Sherly Dior [facility]; [facility] Work Phone: Comment on above: Pattern: Unlabored 10-24-2009 11:55-0500 Systolic blood pressure 124 mm[Hg] Sherly Slaughterstephen [facility]; [facility] Work Phone: Comment on above: Patient Position: Sitting; Cuff Location : Right Arm; Cuff Size: Standard Encounters Encounter Date Encounter Type Care Provider Facility Start: 04-19-2025 ambulatory Kash Corbett Facility:[facility] Start: 04-14-2025 End: 04-14-[address] Kash Corbett MD -[facility] Work Phone: Start: 04-14-2025 End: 04-14-[address] Shonda Stinson MD Work Phone: -[facility] Start: 03-02-[address] Florencio Guillaume MD -[facility] Start: 03-02-2025 End: 03-02-2025 Patient encounter procedure Yuliana HANCOCK -[facility] Work Phone: Start: 03-02-2025 End: 03-02-[address] Shonda Stinson MD Work Phone: [facility] Work Phone: Start: 11-17-2024 End: 11-17-[address] Erum Villegas MD -[facility] Work Phone: Start: 11-17-2024 End: 11-17-2024 ambulatory Erum Villegas Facility:[facility] Start: 10-17-2024 End: 10-17-2024 ambulatory Shonda Stinson Facility:[facility] Start: 09-08-2024 End: 09-08-2024 ambulatory Florencio [facility] Facility:[facility] Start: 08-09-2024 End: 08-09-2024 ambulatory Edouard Solon Facility:[facility] Start: 04-18-2024 End: 04-18-2024 ambulatory Kash Corbett Facility:[facility] Start: 12-17-2023 End: 12-17-[address] Shonda Stinson Work Phone: [facility] Work Phone: Start: 12-17-2023 End: 12-17-[address] Shonda Stinson Work Phone: [facility] Start: 11-17-2023 End: 11-17-[address] Shonda Stinson Work Phone: [facility] Work Phone: Start: 11-17-2023 End: 11-17-[address] Shonda Stinson Work Phone: [facility] Work Phone: Start: 10-23-2023 End: 10-24-2023 ambulatory Facility:[facility] Start: 10-19-2023 End: 10-19-[address] Shonda Stinson Work Phone: [facility] Work Phone: Start: 10-07-2023 End: 10-07-[address] Shonda Stinson Work Phone: [facility] Work Phone: Start: 10-07-2023 End: 10-07-[address] Shonda Stinson Work Phone: [facility] Work Phone: Start: 09-17-[address] Shonda hui Work Phone: [facility] Start: 09-17-2023 End: 09-17-[address] Shodna Stinson Work Phone: [facility] Work Phone: Start: 09-02-2023 End: 09-02-[address] Shonda Stinson Work Phone: [facility] Work Phone: Start: 08-28-2023 End: 08-28-[address] Shonda Stinson Work Phone: [facility]Laboratory, [facility] Start: 08-25-2023 Non-patient / Non-visit Dr. Shonda Stinson Work Phone: [facility] Start: 08-25-2023 End: 08-25-2023 Admission to same day surgery center Dr. Shonda Stinson Work Phone: [facility] Start: 08-25-2023 End: 08-25-[address] Shonda Stinson Work Phone: [facility] Work Phone: Start: 07-20-2023 End: 07-20-[address] Shonda Stinson Work Phone: [facility] Work Phone: Start: 06-30-2023 End: 06-30-[address] Shonda Stinson Work Phone: [facility] Work Phone: Start: 06-30-2023 End: 06-30-[address] Shonda Stinson Work Phone: [facility]-Pre-Admission Testing Work Phone: Start: 06-10-2023 End: 06-10-[address] Shonda Stinson Work Phone: [facility] Work Phone: Start: 05-28-2023 End: 05-28-[address] Shonda Stinson Work Phone: [facility] Work Phone: Start: 05-28-[address] Shonda hui Work Phone: [facility] Start: 03-24-2023 End: 03-24-[address] Shonda Stinson Work Phone: [facility] Work Phone: Start: 03-24-2023 End: 03-24-[address] Shonda Stinson Work Phone: [facility]-Occupational Therapy Work Phone: Start: 03-17-2023 End: 03-17-[address] Shonda Stinson Work Phone: [facility] Work Phone: Start: 02-26-2023 End: 02-26-[address] Shonda Stinson Work Phone: [facility] Work Phone: Start: 02-19-2023 End: 02-19-[address] Shonda Stinson Work Phone: [facility] Work Phone: Start: 02-13-[address] Shonda hui Work Phone: [facility]-Radiation Oncology Start: 02-13-2023 Non-patient / Non-visit Dr. Shonda Stinson Work Phone: [facility] [facility] Work Phone: Start: 02-10-2023 End: 02-10-[address] Shonda Stinson Work Phone: [facility] Work Phone: Start: 02-04-2023 End: 02-04-[address] Shonda Stinson Work Phone: [facility] Work Phone: Start: 01-28-2023 End: 01-28-[address] Shonda Stinson Work Phone: [facility] Work Phone: Start: 01-21-2023 End: 01-21-[address] Shonda Stinson Work Phone: [facility] Work Phone: Start: 01-01-2023 Non-patient / Non-visit Dr. Shonda Stinson Work Phone: [facility] Start: 01-01-[address] Shonda hui Work Phone: [facility] Start: 12-26-2022 End: 12-26-[address] Shonda Stinson Work Phone: [facility] Work Phone: Start: 12-26-2022 End: 12-26-[address] Shonda Stinson Work Phone: [facility] Start: 12-25-2022 End: 12-25-[address] Shonda Stinson Work Phone: [facility] Work Phone: Start: 12-25-2022 End: 12-25-[address] Shonda Stinson Work Phone: [facility]Laboratory, Specimen Start: 12-25-2022 End: 12-25-[address] Shonda Stinson Work Phone: [facility] Start: 12-24-2022 End: 12-24-[address] Shonda Stinson Work Phone: [facility] Start: 12-16-2022 End: 12-16-[address] Shonda Stinson Work Phone: [facility] Work Phone: Start: 12-16-2022 End: 12-16-[address] Shonda Stinson Work Phone: [facility] Start: 12-10-2022 End: 12-10-[address] Shonda Stinson Work Phone: [facility] Start: 12-08-2022 End: 12-08-[address] Shonda Stinson Work Phone: [facility] Work Phone: Start: 12-08-2022 End: 12-08-[address] Shonda Stinson Work Phone[facility] Start: 12-04-2022 End: 12-04-[address] Shonda Stinson Work Phone: [facility] Work Phone: Start: 12-04-2022 End: 12-04-[address] Shonda Stinson Work Phone: [facility] Start: 11-27-[address] Shonda hui Work Phone: [facility] Start: 11-27-2022 End: 11-27-[address] Shonda Stinson Work Phone: [facility] Start: 11-20-2022 End: 11-20-[address] Shonda Stinson Work Phone: [facility] Start: 11-14-2022 End: 11-14-[address] Shonda Stinson Work Phone: [facility] Start: 11-13-2022 Non-patient / Non-visit Dr. Shonda Stinson Work Phone: [facility] Start: 11-12-2022 End: 11-13-2022 Evaluation and management of inpatient [facility] Start: 11-12-2022 Non-patient / Non-visit Dr. Shonda Stinson Work Phone: [facility] Start: 11-10-2022 End: 11-10-[address] Shonda Stinson Work Phone: [facility] Start: 11-10-2022 End: 11-10-2022 Non-patient / Non-visit Dr. Shonda Stinson Work Phone: [facility] Start: 10-21-2022 End: 10-21-[address] Shonda Stinson Work Phone: [facility] Work Phone: Start: 10-21-2022 End: 10-21-[address] Shonda Stinson Work Phone: [facility] Start: 10-01-2022 End: 10-01-[address] Shonda Stinson Work Phone: [facility] Work Phone: Start: 10-01-2022 End: 10-01-[address] Shonda Stinson Work Phone: [facility]Laboratory, Specimen Start: 10-01-2022 End: 10-01-[address] Shonda Stinson Work Phone: [facility] Start: 09-26-2022 End: 09-26-[address] Shonda Stinson Work Phone: [facility] Work Phone: Start: 09-26-2022 End: 09-26-[address] Shonda Stinson Work Phone: [facility]Outpatient Breast Imaging Start: 09-24-2022 End: 09-24-2022 ambulatory [facility] Work Phone: Start: 09-24-2022 End: 09-24-2022 Patient encounter procedure [facility] Bone Densitometry Start: 04-30-2015 End: 04-30-2015 Phone Encounter Jade [...] Date Procedure Procedure Detail Performing Clinician Start: 03-02-[address] Shonda Stinson MD Work Phone: Start: 09-08-2024 Measurement of renal function Dr. Shonda Stinson MD Work Phone: Comment on above: GFR Calc Start: 03-17-2024 Vitamin D, 25-hydrox y measurement Dr. Shonda Stinson MD Work Phone: Comment on above: Vitamin D 25(OH) Sta tus Range Deficiency <20 ng/mL (50nmol/L) Insufficiency 20 - 30 ng/mL (50 - 75 nmol/L) Sufficiency 30 - 100 ng/mL (75 - 250 nmol/L) Toxicity >100 ng/mL (>250 nmol/L) Start: 08-25-[address] Shonda hui Work Phone: Start: 12-16-[address] Shonda Stinson Work Phone: Start: 12-16-2022 US scan of thyroid Dr. Shonda Stinson Work Phone: Start: 12-08-2022 Radionuclide whole b cyndi bone study Dr. Shonda Stinson Work Phone: Start: 12-04-2022 CT of chest and abdomen Dr. Shonda Stinson Work Phone: Start: 11-12-2022 Radionuclide sentine l lymph node study Dr. Shonda Stinson Work Phone: Start: 10-21-2022 MRI of bilateral katarzyna asts with contrast Dr. Shonda Stinson Work Phone: Start: 09-26-2022 Bilateral mammography Promise Stinson Work Phone: Start: 09-24-2022 Dual energy X-ray absorptiometry Dr. Shonda Stinson Work Phone: Start: 09-24-2022 Screening mammography Start: 05-23-2014 End: 05-23-2014 Bilat Diag Digital & CAD Comments: See Note; NOTES: [facility] Imaging Services [address] [place] [address] Breast Imaging Report MR#: [id number] Acct: [id number] Name: KAVEH MORAN Rep #: [id number] : 1965 F 49 From: Javier Sinclair MD PCP: Jade Stubbs DO Status: REG CLI Exam# [id number] Ordering Dr: Jade Stubbs DO MAMMOGRAPHY - [...] Javier Sinclair MD at 9:07 EDT Tel [phone], Service support [phone], CC: Jade Stubbs DO Conventions Reservationist: Signed Jade Stubbs DO Work Phone: Start: 05-23-2014 End: 05-23-2014 Breast Unilateral Comments: See Note; NOTES: [facility] Imaging Services [address] [place] [address] Ultrasound Report MR#: [id number] Acct: [id number] Name: KAVEH MORAN Rep #: [id number] : 1965 F 49 From: Javier Sinclair MD PCP: Jade Stubbs DO Status: REG CLI Study: Breast Unilateral Date of Exam: 05/23/14 Exam# [id number] Ordering Dr: Jade Stubbs DO STUDY: ULTRASOUND [...] Javier Sinclair MD at 9:55 EDT Tel [phone], Service support [phone], CC: Jade Stubbs DO Conventions Reservationist: Signed Jade Stubbs DO Work Phone: Start: 05-23-2014 End: 05-23-2014 Dexa Bone Density Study (HP) Comments: See Note; NOTES: [facility] Imaging Services [address] [place] [address] Bone Density Report MR#: [id number] Acct: [id number] Name: KAVEH MORAN Rep #: [id number] : 1965 F 49 From: Javier Sinclair MD PCP: Jade Stubbs DO Status: REG CLI Study: Dexa Bone Density Study () Date of Exam: 05/23/14 Exam# [id number] Ordering Dr: Jade Stubbs DO STUDY: DUAL [...] Javier Sinclair MD at 9:57 EDT Tel [phone], Service support [phone], CC: Jade Stubbs DO Conventions Reservationist: Signed Jade Stubbs DO Work Phone: H/O: surgery History of lymph node dissection of axilla Dr. Shonda Stinson Work Phone: Comment on above: LEFT H/O: tubal ligation Tubal Ligation Alliso n Herlinda History of bilateral mastectomy S/P bilateral mastectomy Dr. Shonda Stinson Work Phone: Comment on above: 11/12/2022- LEFT ALND , Right SNL bx History of bilateral mastectomy S/P bilateral mastectomy Dr. Erum Villegas MD Plan of Treatment Date Care Activity Detail Author Start: 03-02-2025 [facility] Start: 08-25-2023 Anes esoph thyrd lar ynx trach & lymph neck 1yr ANESTH NECK ORGAN 1YR/> [facility] Start: 08-25-2023 Prtl thyroid lobecto my uni w/wo isthmusectomy PARTIAL THYROID EXCISION [facility] Start: 08-25-2023 Patient discharge [facility] Start: 02-26-2023 Patient referral [facility] Work Phone: Start: 12-24-2022 Patient referral [facility] Work Phone: Start: 11-13-2022 Patient discharge [facility] Start: 11-12-2022 Following clinical pathway protocol [facility] Start: 11-12-2022 Ambulation without limitation [facility] Start: 11-12-2022 Catheterization of vein [facility] Start: 11-12-2022 Incentive spirometry [place] Start: 11-12-2022 Maintenance of drain age tube [facility] Start: 11-12-2022 Measuring intake and output [facility] Start: 11-12-2022 Notification of physician [facility] Start: 11-12-2022 Removal of urinary catheter [facility] Start: 11-12-2022 Vital signs measurements [facility] Start: 11-12-2022 [facility] Start: 11-12-2022 Admission procedure [facility] Start: 11-12-2022 Anes integ extremiti es ant trunk & perineum nos ANESTH SKIN EXT/PER/ATRUNK [facility] Start: 11-12-2022 Bx/exc lymph node op en deep axillary node BIOPSY/REMOVAL LYMPH NODES [facility] Start: 11-12-2022 Mastectomy simple complete MAST SIMPLE COMPLETE [facility] Start: 09-24-2022 Dual energy X-ray absorptiometry Dexa Bone Density Study [facility] Work Phone: Start: 06-01-2014 Provider Instruction s for Treatment Diet, Exercise, and Wt loss [facility] Work Phone: Start: 05-31-2014 Cyanocobalamin vitam in b-12 VITAMIN B-12 (CYANOCOBALAMIN) (26137) [facility] Work Phone: Start: 05-31-2014 25 hydroxy includes fractions if performed Vitamin D Hydroxy (46764) [facility] Work Phone: Start: 05-31-2014 Hepatic function panel HEPATIC FUNCTION PANEL (23725) [facility] Work Phone: Start: 05-31-2014 Procedure Education Eprescribe d prescriptions (G8553) [facility] Work Phone: Start: 05-12-2014 Patient Education Pap Test (Ce rvical Smear) *: cancer [facility] Work Phone: Start: 05-12-2014 Provider Instruction s for Treatment [facility] Work Phone: Start: 12-09-2012 Provider Instruction s for Treatment [facility] Work Phone: Start: 09-24-2010 Smr prim src wet dione nt nfct agt WET MOUNT (02938) [facility] Work Phone: Comment on above: with nkechi Start: 09-24-2010 25 hydroxy includes fractions if performed Vitamin D Hydroxy (36051) [facility] Work Phone: Start: 09-24-2010 Comprehensive metabo lic panel METABOLIC PANEL, COMPREHENSIVE (06144) [facility]; [facility] Work Phone: Start: 09-24-2010 Cyanocobalamin vitam in b-12 VITAMIN B-12 (CYANOCOBALAMIN) (14148) [facility]; [facility] Work Phone: Start: 09-24-2010 Cul prsmptv pthgnc organism scrn w/[place] estimj CULTURE, GONOCOCCUS (74713) [facility]; [facility] Work Phone: Start: 09-24-2010 Culture chlamydia an y source CULTURE CHLAMYDIA (56913) [facility]; [facility] Work Phone: Start: 06-17-2010 Cyanocobalamin vitam in b-12 VITAMIN B-12 (CYANOCOBALAMIN) (70117) [facility]; [facility] Work Phone: Start: 06-17-2010 25 hydroxy includes fractions if performed Vitamin D Hydroxy (00256) [facility] Work Phone: Start: 06-17-2010 Assay of phosphorus inorganic PHOSPHORUS (45569) [facility] Work Phone: Start: 06-17-2010 Assay of parathormone PARATHORMONE ( 49596) [facility] Work Phone: Start: 06-17-2010 Assay of thyroid stimulating hormone tsh TSH (49764) [facility]; [facility] Work Phone: Start: 06-17-2010 Urnls dip stick/tabl et reagent auto microscopy URINALYSIS, W/ MICRO (18948) [facility]; [facility] Work Phone: Start: 06-17-2010 Comprehensive metabo lic panel METABOLIC PANEL, COMPREHENSIVE (37507) [facility]; [facility] Work Phone: Start: 06-17-2010 Blood count manual c ell count each CBC WITH MANUAL DIFF (37187) [facility]; [facility] Work Phone: Start: 11-14-2009 Provider Instruction s for Treatment Diet, Exercise, and Wt loss [facility]; [facility] Work Phone: Start: 11-13-2009 25 hydroxy includes fractions if performed Vitamin D Hydroxy (50222) [facility]; [facility] Work Phone: Start: 11-13-2009 Calcium total CALCIUM SERUM (47048) [facility]; [facility] Work Phone: Start: 11-13-2009 Assay of parathormone PARATHORMONE ( 25153) [facility] Work Phone: Start: 11-13-2009 Assay of phosphorus inorganic PHOSPHORUS (91457) [facility] Work Phone: Start: 10-24-2009 Lipid panel LIPID PANEL (85542) [facility]; [facility] Work Phone: Start: 10-24-2009 Urnls dip stick/tabl et reagent auto microscopy URINALYSIS, W/ MICRO (66002) [facility]; [facility] Work Phone: Start: 10-24-2009 Assay of thyroid stimulating hormone tsh TSH (85671) [facility]; [facility] Work Phone: Start: 10-24-2009 Comprehensive metabo lic panel METABOLIC PANEL, COMPREHENSIVE (59472) [facility]; [facility] Work Phone: Start: 10-24-2009 Blood count manual c ell count each CBC WITH MANUAL DIFF (42215) [facility] Work Phone: CBC W Auto Different ial panel - Blood [facility] CBC W Auto Different ial panel - Blood [facility] CBC W Auto Different ial panel - Blood [facility] CBC W Auto Different ial panel - Blood [facility] Comprehensive metabo lic 1999 panel - Serum or Plasma [facility] Comprehensive metabo lic 1999 panel - Serum or Plasma [facility] DXA Bone [Mass/Area] Bone density [facility] Lactate dehydrogenas e measurement [facility] Lactate dehydrogenas e measurement [facility] Lactate dehydrogenas e measurement [facility] MR Breast - bilatera l WO and W contrast IV [facility] Work Phone: MR Breast - bilatera l WO and W contrast IV [facility] Patient referral [facility] Work Phone: T4 free measurement [facility] Thyroid stimulating hormone measurement [facility] Work Phone: [facility] Work Phone: [facility] Work Phone: [facility] Work Phone: [facility] Work Phone: [facility] Work Phone: [facility] Work Phone: [facility] Work Phone: [facility] Work Phone: [facility] Work Phone: [facility] Work Phone: [facility] Work Phone: [facility] Payers Date Payer Category Payer Self-pay [id number] 2022 Unknown [id number] 2014 Unknown [id number] 2003 Unknown [id number] Unknown Unknown [facility] PACKAGE PLAN [id number] Unknown [id number] 2.16.8 [id number] Unknown [id number] 2.16.8 [id number] Unknown [id number] 2.16.8 [id number] Unknown [id number] 2.16.8 [id number] Unknown [id number] 2.16.8 [id number] Unknown [id number] 2.16.8 [id number] Unknown [id number] 2.16.8 [id number] Unknown [id number] 2.16.8 [id number] Unknown [id number] 2.16.8 [id number] Social History Date Type Detail Facility Alcohol Use Alcohol Use [facility] Work Phone: Comment on above: Occasional alcohol u se 2 coffee, tea , 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 [facility] Start: 1965 Sex Assigned At Female W [facility] Start: 10-01-2022 End: 11-17-2023 Tobacco smoking status NHIS Unknown if ever smoked [facility] Start: 08-09-2024 Tobacco smoking stat us NHIS Never smoked tobacco (finding) [facility] NEGATED: Highlighted row [facility] Medical Equipment Procedure Code Equipment Code Equipment Original Text Equipment Identifier Dates Thyroidectomy Plant polysaccha ride haemostatic agent, bioabsorbable [id number] FDA Start: 08-25-2023 Thyroidectomy Ligation clip, metallic ( [id number] FDA Start: 08-25-2023 Thyroidectomy Ligation clip, metallic ( [id number] FDA Start: 08-25-2023 SUTURE,LIGA CLIP MED LT200 FDA Start: 11-12-2022 SUTURE,LIGA CLIP SM LT-100 FDA Start: 11-12-2022 SUTURE,LIGA CLIP SM LT-100 FDA Start: 11-12-2022 SUTURE,LIGA CLIP SM LT-100 FDA Start: 11-12-2022 SUTURE,LIGA CLIP SM LT-100 FDA Start: 11-12-2022 SUTURE,LIGA CLIP MED LT200 FDA Start: 11-12-2022 SUTURE,LIGA CLIP MED LT200 FDA Start: 11-12-2022 SUTURE,LIGA CLIP MED LT200 FDA Start: 11-12-2022 SUTURE,LIGA CLIP MED LT200 FDA Start: 11-12-2022 SUTURE,LIGA CLIP SM LT-100 FDA Start: 11-12-2022 SUTURE,LIGA CLIP SM LT-100 FDA Start: 11-12-2022 SUTURE,LIGA CLIP SM LT-100 FDA Start: 11-12-2022 SUTURE,LIGA CLIP SM LT-100 FDA Start: 02-15-2023 SUTURE,LIGA CLIP MED LT200 FDA Start: 11-12-2022 SUTURE,LIGA CLIP SM LT-100 FDA Start: 11-12-2022 SUTURE,LIGA CLIP SM LT-100 FDA Start: 11-12-2022 SUTURE,LIGA CLIP SM LT-100 FDA Start: 11-12-2022 SUTURE,LIGA CLIP SM LT-100 FDA Start: 11-12-2022 SUTURE,LIGA CLIP MED LT200 FDA Start: 11-12-2022 SUTURE,LIGA CLIP MED LT200 FDA Start: 11-12-2022 SUTURE,LIGA CLIP MED LT200 FDA Start: 11-12-2022 SUTURE,LIGA CLIP MED LT200 FDA Start: 11-12-2022 SUTURE,LIGA CLIP SM LT-100 FDA Start: 11-12-2022 SUTURE,LIGA CLIP SM LT-100 FDA Start: 11-12-2022 SUTURE,LIGA CLIP SM LT-100 FDA Start: 11-12-2022 SUTURE,LIGA CLIP SM LT-100 FDA Start: 11-12-2022 SUTURE,LIGA CLIP MED LT200 FDA Start: 11-12-2022 SUTURE,LIGA CLIP SM LT-100 FDA Start: 11-12-2022 SUTURE,LIGA CLIP SM LT-100 FDA Start: 11-12-2022 SUTURE,LIGA CLIP SM LT-100 FDA Start: 11-12-2022 SUTURE,LIGA CLIP SM LT-100 FDA Start: 11-12-2022 SUTURE,LIGA CLIP MED LT200 FDA Start: 11-12-2022 SUTURE,LIGA CLIP MED LT200 FDA Start: 11-12-2022 SUTURE,LIGA CLIP MED LT200 FDA Start: 11-12-2022 SUTURE,LIGA CLIP MED LT200 FDA Start: 11-12-2022 SUTURE,LIGA CLIP SM LT-100 FDA Start: 11-12-2022 SUTURE,LIGA CLIP SM LT-100 FDA Start: 11-12-2022 SUTURE,LIGA CLIP SM LT-100 FDA Start: 11-12-2022 SUTURE,LIGA CLIP SM LT-100 FDA Start: 11-12-2022 SUTURE,LIGA CLIP MED LT200 FDA Start: 11-12-2022 SUTURE,LIGA CLIP SM LT-100 FDA Start: 11-12-2022 SUTURE,LIGA CLIP SM LT-100 FDA Start: 11-12-2022 SUTURE,LIGA CLIP SM LT-100 FDA Start: 11-12-2022 SUTURE,LIGA CLIP SM LT-100 FDA Start: 11-12-2022 SUTURE,LIGA CLIP MED LT200 FDA Start: 11-12-2022 SUTURE,LIGA CLIP MED LT200 FDA Start: 11-12-2022 SUTURE,LIGA CLIP MED LT200 FDA Start: 11-12-2022 SUTURE,LIGA CLIP MED LT200 FDA Start: 11-12-2022 SUTURE,LIGA CLIP SM LT-100 FDA Start: 11-12-2022 SUTURE,LIGA CLIP SM LT-100 FDA Start: 11-12-2022 SUTURE,LIGA CLIP SM LT-100 FDA Start: 11-12-2022 SUTURE,LIGA CLIP SM LT-100 FDA Start: 11-12-2022 SUTURE,LIGA CLIP MED LT200 FDA Start: 11-12-2022 SUTURE,LIGA CLIP SM LT-100 FDA Start: 11-12-2022 SUTURE,LIGA CLIP SM LT-100 FDA Start: 11-12-2022 SUTURE,LIGA CLIP SM LT-100 FDA Start: 11-12-2022 SUTURE,LIGA CLIP SM LT-100 FDA Start: 11-12-2022 SUTURE,LIGA CLIP MED LT200 FDA Start: 11-12-2022 SUTURE,LIGA CLIP MED LT200 FDA Start: 11-12-2022 SUTURE,LIGA CLIP MED LT200 FDA Start: 11-12-2022 SUTURE,LIGA CLIP MED LT200 FDA Start: 11-12-2022 SUTURE,LIGA CLIP SM LT-100 FDA Start: 11-12-2022 SUTURE,LIGA CLIP SM LT-100 FDA Start: 11-12-2022 SUTURE,LIGA CLIP SM LT-100 FDA Start: 11-12-2022 SUTURE,LIGA CLIP SM LT-100 FDA Start: 11-12-2022 SUTURE,LIGA CLIP MED LT200 FDA Start: 11-12-2022 SUTURE,LIGA CLIP SM LT-100 FDA Start: 11-12-2022 SUTURE,LIGA CLIP SM LT-100 FDA Start: 11-12-2022 SUTURE,LIGA CLIP SM LT-100 FDA Start: 11-12-2022 SUTURE,LIGA CLIP SM LT-100 FDA Start: 11-12-2022 SUTURE,LIGA CLIP MED LT200 FDA Start: 11-12-2022 SUTURE,LIGA CLIP MED LT200 FDA Start: 11-12-2022 SUTURE,LIGA CLIP MED LT200 FDA Start: 11-12-2022 SUTURE,LIGA CLIP MED LT200 FDA Start: 11-12-2022 SUTURE,LIGA CLIP SM LT-100 FDA Start: 11-12-2022 SUTURE,LIGA CLIP SM LT-100 FDA Start: 11-12-2022 SUTURE,LIGA CLIP SM LT-100 FDA Start: 11-12-2022 SUTURE,LIGA CLIP SM LT-100 FDA Start: 11-12-2022 SUTURE,LIGA CLIP MED LT200 FDA Start: 11-12-2022 SUTURE,LIGA CLIP SM LT-100 FDA Start: 11-12-2022 SUTURE,LIGA CLIP SM LT-100 FDA Start: 11-12-2022 SUTURE,LIGA CLIP SM LT-100 FDA Start: 11-12-2022 SUTURE,LIGA CLIP SM LT-100 FDA Start: 11-12-2022 SUTURE,LIGA CLIP MED LT200 FDA Start: 11-12-2022 SUTURE,LIGA CLIP MED LT200 FDA Start: 11-12-2022 SUTURE,LIGA CLIP MED LT200 FDA Start: 11-12-2022 SUTURE,LIGA CLIP MED LT200 FDA Start: 11-12-2022 SUTURE,LIGA CLIP SM LT-100 FDA Start: 11-12-2022 SUTURE,LIGA CLIP SM LT-100 FDA Start: 11-12-2022 SUTURE,LIGA CLIP SM LT-100 FDA Start: 11-12-2022 SUTURE,LIGA CLIP SM LT-100 FDA Start: 11-12-2022 SUTURE,LIGA CLIP MED LT200 FDA Start: 11-12-2022 SUTURE,LIGA CLIP SM LT-100 FDA Start: 11-12-2022 SUTURE,LIGA CLIP SM LT-100 FDA Start: 11-12-2022 SUTURE,LIGA CLIP SM LT-100 FDA Start: 11-12-2022 SUTURE,LIGA CLIP SM LT-100 FDA Start: 11-12-2022 SUTURE,LIGA CLIP MED LT200 FDA Start: 11-12-2022 SUTURE,LIGA CLIP MED LT200 FDA Start: 11-12-2022 SUTURE,LIGA CLIP MED LT200 FDA Start: 11-12-2022 SUTURE,LIGA CLIP MED LT200 FDA Start: 11-12-2022 SUTURE,LIGA CLIP SM LT-100 FDA Start: 11-12-2022 SUTURE,LIGA CLIP SM LT-100 FDA Start: 11-12-2022 SUTURE,LIGA CLIP SM LT-100 FDA Start: 11-12-2022 SUTURE,LIGA CLIP SM LT-100 FDA Start: 11-12-2022 SUTURE,LIGA CLIP MED LT200 FDA Start: 11-12-2022 SUTURE,LIGA CLIP SM LT-100 FDA Start: 11-12-2022 SUTURE,LIGA CLIP SM LT-100 FDA Start: 11-12-2022 SUTURE,LIGA CLIP SM LT-100 FDA Start: 11-12-2022 SUTURE,LIGA CLIP SM LT-100 FDA Start: 11-12-2022 SUTURE,LIGA CLIP MED LT200 FDA Start: 11-12-2022 SUTURE,LIGA CLIP MED LT200 FDA Start: 11-12-2022 SUTURE,LIGA CLIP MED LT200 FDA Start: 11-12-2022 SUTURE,LIGA CLIP MED LT200 FDA Start: 11-12-2022 SUTURE,LIGA CLIP SM LT-100 FDA Start: 11-12-2022 SUTURE,LIGA CLIP SM LT-100 FDA Start: 11-12-2022 SUTURE,LIGA CLIP SM LT-100 FDA Start: 11-12-2022 SUTURE,LIGA CLIP SM LT-100 FDA Start: 11-12-2022 SUTURE,LIGA CLIP MED LT200 FDA Start: 11-12-2022 SUTURE,LIGA CLIP SM LT-100 FDA Start: 11-12-2022 SUTURE,LIGA CLIP SM LT-100 FDA Start: 11-12-2022 SUTURE,LIGA CLIP SM LT-100 FDA Start: 11-12-2022 SUTURE,LIGA CLIP SM LT-100 FDA Start: 11-12-2022 SUTURE,LIGA CLIP MED LT200 FDA Start: 11-12-2022 SUTURE,LIGA CLIP MED LT200 FDA Start: 11-12-2022 SUTURE,LIGA CLIP MED LT200 FDA Start: 11-12-2022 SUTURE,LIGA CLIP MED LT200 FDA Start: 11-12-2022 SUTURE,LIGA CLIP SM LT-100 FDA Start: 11-12-2022 SUTURE,LIGA CLIP SM LT-100 FDA Start: 11-12-2022 SUTURE,LIGA CLIP SM LT-100 FDA Start: 11-12-2022 SUTURE,LIGA CLIP SM LT-100 FDA Start: 11-12-2022 SUTURE,LIGA CLIP MED LT200 FDA Start: 11-12-2022 SUTURE,LIGA CLIP SM LT-100 FDA Start: 11-12-2022 SUTURE,LIGA CLIP SM LT-100 FDA Start: 11-12-2022 SUTURE,LIGA CLIP SM LT-100 FDA Start: 11-12-2022 SUTURE,LIGA CLIP SM LT-100 FDA Start: 11-12-2022 SUTURE,LIGA CLIP MED LT200 FDA Start: 11-12-2022 SUTURE,LIGA CLIP MED LT200 FDA Start: 11-12-2022 SUTURE,LIGA CLIP MED LT200 FDA Start: 11-12-2022 SUTURE,LIGA CLIP MED LT200 FDA Start: 11-12-2022 SUTURE,LIGA CLIP SM LT-100 FDA Start: 11-12-2022 SUTURE,LIGA CLIP SM LT-100 FDA Start: 11-12-2022 SUTURE,LIGA CLIP SM LT-100 FDA Start: 11-12-2022 SUTURE,LIGA CLIP SM LT-100 FDA Start: 11-12-2022 SUTURE,LIGA CLIP MED LT200 FDA Start: 11-12-2022 SUTURE,LIGA CLIP SM LT-100 FDA Start: 11-12-2022 SUTURE,LIGA CLIP SM LT-100 FDA Start: 11-12-2022 SUTURE,LIGA CLIP SM LT-100 FDA Start: 11-12-2022 SUTURE,LIGA CLIP SM LT-100 FDA Start: 11-12-2022 SUTURE,LIGA CLIP MED LT200 FDA Start: 11-12-2022 SUTURE,LIGA CLIP MED LT200 FDA Start: 11-12-2022 SUTURE,LIGA CLIP MED LT200 FDA Start: 11-12-2022 SUTURE,LIGA CLIP MED LT200 FDA Start: 11-12-2022 SUTURE,LIGA CLIP SM LT-100 FDA Start: 11-12-2022 SUTURE,LIGA CLIP SM LT-100 FDA Start: 11-12-2022 SUTURE,LIGA CLIP SM LT-100 FDA Start: 11-12-2022 SUTURE,LIGA CLIP SM LT-100 FDA Start: 11-12-2022 SUTURE,LIGA CLIP MED LT200 FDA Start: 11-12-2022 SUTURE,LIGA CLIP SM LT-100 FDA Start: 11-12-2022 SUTURE,LIGA CLIP SM LT-100 FDA Start: 11-12-2022 SUTURE,LIGA CLIP SM LT-100 FDA Start: 11-12-2022 SUTURE,LIGA CLIP SM LT-100 FDA Start: 11-12-2022 SUTURE,LIGA CLIP MED LT200 FDA Start: 11-12-2022 SUTURE,LIGA CLIP MED LT200 FDA Start: 11-12-2022 SUTURE,LIGA CLIP MED LT200 FDA Start: 11-12-2022 SUTURE,LIGA CLIP MED LT200 FDA Start: 11-12-2022 SUTURE,LIGA CLIP SM LT-100 FDA Start: 11-12-2022 SUTURE,LIGA CLIP SM LT-100 FDA Start: 11-12-2022 SUTURE,LIGA CLIP SM LT-100 FDA Start: 11-12-2022 SUTURE,LIGA CLIP SM LT-100 FDA Start: 11-12-2022 Goals Date Patient Goal Desired Activity /State Functional Status Date Assessment Result Facility 11-13-2022 Functional status Chair [facility] Work Phone: Mental Status Date Assessment Result Facility 08-25-2023 Cognitive function Voice/Name [facility] Work Phone: 11-13-2022 Cognitive function Voice/Name [facility] Work Phone: Clinical Notes 08-25-2023 to 04-14-2025 Note Date & Type Note Facility 04-14-2025 Progress note [facility] 04-14-2025 Progress note Note Date/Time April 14, 2025 9:18am [facility] [address] [place] [address] [address] [place] [address] OFFICE VISIT Date of Service: 04/14/25 MR#: [id number] Acct: [id number] Name: KAVEH MORAN Rep #: [id number] : 1965 Provider: Dr. Kash Corbett MD Age/Sex: 60/F Location: [facility] [place] Status: Signed Intake Vital Signs 04/18/24 08:01 03/02/25 14:10 04/14/25 08:13 Height 5 ft 3 in 5 ft 3 in 5 ft 3 in Weight: 201 lb 4 oz BMI 35.6 BP 142/78 H Blood Pressure Location Rt brachial Position Sitting Pulse 92 Pulse Source Monitor Pulse Oximetry (%) 97 Oxygen Delivery Method room air Intake Visit Reasons: 1 Y FU Chief Complaint: Thyroid/parathyroid Is patient in pain?: No Allergies No Known Allergies Allergy (Verified 04/14/25 08:17) Medications ?Medication ?Instructions ?Recorded ?Confirmed ?Type calcium 500 mg (as 3 tab PO DAILY 10/19/2303/28 History carbonate)-vitamin D3 10 mcg (400 unit) tablet (Calcium 500 + D) calcitriol 0.25 mcg capsule 0.25 mcg PO BID #180 caps 10/31/24 04/14/25 Rx levothyroxine 137 mcg tablet 137 mcg PO DAILY #90 tabs 11/15/24 04/14/25 Rx pimecrolimus 1 % topical cream 1 applic topical BID 04/14/25 History tamoxifen 20 mg tablet 20 mg PO QHS 90 days #90 tab s 03/02/25 04/14/25 Rx PFSH Medical History (Updated 04/14/25 @ 09:[address] Kash Corbett MD) Obesity Laryngitis Cancer Hx of radiation therapy Encounter for education Multiple thyroid nodules Thyroid nodule Abnormal chest CT Left breast lump Wears partial dentures Wears glasses Post-menopausal Kidney stone Scoliosis Gastric reflux Non-smoker History of stress test 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 of right breast in female Surgical History History of partial thyroidectomy History of colonoscopy History of lymph node dissection of axilla S/P bilateral mastectomy History of bilateral breast biopsy (~09/2022) Hx of exploratory laparotomy Hx of shoulder surgery History of partial hysterectomy Family History Mother Cancer Sister Thyroid disorder Cancer Social History Smoking Status: Never smoker alcohol intake: current alcohol intake frequency: a few times a month substance use type: does not use HPI HPI Chief Complaint: Thyroid/parathyroid Details: KAVEH MORAN, is a 60 F who presents to the office today for follow up. She presented with some compressive symptoms with multinodular goiter. Nodule was TR4. She has lobectomy and isthmusectomy in July,. Pathology was benign. Oddly, she became hypoparathyroid. No parathyroid tissue was identified in the pathology. She has FMH of Landy's thyroiditis. Path did NOT show Hash and her TPO were negative. She also became profoundly hypothyroid after surgery, which is somewhat unusual. She is taking calcitriol 0.25 bid and levothyroxine 137 mcg daily. She has history of breast cancer and is taking tamoxifen. She has lost 6 pounds since last year, but she is upset with her weight. ROS Const Constitutional: No fatigue, weight change or change in appetite Eyes Eyes: No change in vision ENT ENT: No dizziness/vertigo or difficulty swallowing Cardio Cardiology: No chest pain at rest, chest pain with exertion, shortness of breathor palpitations Musc Musculoskeletal: No abnormal gait, joint pain, numbness or tingling Neuro Neurology: No abnormal gait, memory loss, numbness or tingling Psych Psychiatric: No change in appetite, No memory loss and No Thoughts of harming yourself/Others Resp Respiratory: No cough, chest congestion or shortness of breath Gastro GI: No abdominal pain, constipation, diarrhea or difficulty swallowing Genitourinary-Female: No burning urination Skin Skin: No itchy eyes or wounds Endo Endocrine: No fatigue or weight change Aller/Imm Allergy/Immunologic: No itchy eyes Exam Const General: cooperative, healthy appearing, comfortable, no acute distress, well developed and not cushingoid Nutritional Appearance: well nourished Orientation: alert, awake and oriented x3 HENMT Head: normal to inspection Ears: hearing grossly normal bilaterally Nose: external nose normal Mouth: oral mucosae normal Eyes General: appearance normal, both eyes and all related structures Alignment and Position: alignment normal Periorbital: periorbital findings normal Eyelids: eyelids normal Conjunctivae: conjunctivae normal Neck Neck: normal visual inspection Neck mass: No Chest Chest palpation & inspection: normal inspection of the chest Resp Effort & Inspection: normal respiratory effort, able to speak in complete sentences, symmetric chest movement, no audible wheezes and no cough Cardio Rate: regular rate Rhythm: regular rhythm Skin General: no rashes or lesions noted Neuro General: patient alert, patient awake and patient oriented x3 Cranial Nerves: CN's II-XI intact bilaterally Cognition: normal cognition Speech: speech normal Gait: normal gait Motor: muscle tone normal throughout Extrem General: no edema Psych Appearance: grossly normal Mental Status: mental status grossly normal Mood: congruent mood Affect: normal affect Speech and Movement: speech and movement normal Attitude: cooperative Thought Process: normal Thought Content: normal Judgment: judgment good Assessment and Plan Assessment and Plan (1) Hypothyroidism (acquired): Status: Chronic Comment: following left thyroid lobectomy with isthmusectomy, 2022 Plan: Take levothyroxine on an empty stomach with water at least four hours after eating. Then wait 30-60 minutes before consuming any other food or beverage, especially coffee. Separate levothyroxine from vitamins by at least 4 hours. Stop taking any biotin supplement 4 days prior to having labs drawn. Check levels (2) 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 surgical removal of thyroid gland: Status: Chronic Plan: Continue calcitriol bid. Check calcium levels twice per year. (3) Obesity: Status: Chronic Qualifiers: Obesity type: due to excess calories Obesity classification: adult class 2 (BMI 35 - 39.9) Serious obesity comorbidity presence: with serious comorbidity Body mass index: BMI 35.0-35.9 Qualified Code(s): E66.812 - Obesity, class 2; E66.01 - Morbid (severe) obesity due to excess calories; Z68.35 - Body mass index [BMI] 35.0-35.9, adult Plan: Nutritional counseling provided, avoid flour, sugar, and artificial sweeteners. I suggested reading Bright Line Eating by Hina Friedman for information regarding food choices with low glycemic index and for weight loss. Discussed neuroscience of obesity. Discussed medications available for weight loss. I have spent [35] minutes today reviewing labs, records and history. Time includes coordinating care, interpretation of tests, discussion with patient's other health care providers via telephone. This also includes time I spent with the patient for exam, treatment plan and education as well as documenting clinical information. Orders: Orders Dexa Bone Density Study Today M85.89 - Other specified disorders of bone density and structure, multiple sites Thyroid Stim Hormone (TSH) Today E03.9 - Hypothyroidism, unspecified, E89.2 - Postprocedural hypoparathyroidism Free T4 Today E03.9 - Hypothyroidism, unspecified, E89.2 - Postprocedural hypoparathyroidism Comprehensive Metabolic Profil Today E03.9 - Hypothyroidism, unspecified, E89.2 - Postprocedural hypoparathyroidism Coding Level of Care Code Off vis,est,level 4 Extra Time Spent Extra Time Spent Extra Time Spent: G2211 Diagnoses Hypothyroidism (acquired) E03.9 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 surgical removal of thyroid gland E89.2 Class 2 severe obesity due to excess calories with serious comorbidity and body mass index (BMI) of 35.0 to 35.9 in adult E66.812; E66.01; Z68.35 Obesity type: due to excess calories Obesity classification: adult class 2 (BMI 35 - 39.9) Serious obesity comorbidity presence: with serious comorbidity Body mass index: BMI 35.0-35.9 Additional Codes Extra Time Spent - Extra Time Spent: G2211 (G2211) 04/14/2518 <Electronically signed by Kash Corbett MD> Date _ Kash Corbett MD Cosigner Signature: Date (if applicable) CC: Dr. Shonda Stinson MD ~ [facility] Work Phone: 1(983) 349-350706-05-2025 Evaluation note* Diagnosis Onset Date Resolution Status Admit Date Breast cancer, left chronic March 02, 2025 1:02pm Breast cancer, right chronic March 02, 2025 1:02pm 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 ganga gical removal of thyroid gland chronic April 142024 8:14am Hypothyroidism (acquired) chronic April 14, 2025 8:14am Obesity chronic April 14 8:14am [facility] Work Phone: 1(934) 487-212106-05-2025 Progress [facility] [address] [place] [address] OFFICE VISIT Date of Service: 03/02/25 1410 MR#: [id number] Acct: [id number] Name: KAVEH MORAN Rep #: [id number] : 1965 From: Yuliana Bourgeois ch SPRING SETTER SPRING SETTER-C Age/Sex: 60/F Location: [facility] [place] Status: Signed HPI Subjective Date of Service 03/02/25 Chief Complaint F/u for R & L breast cancer. History of Present Illness 60 y.o. woman found to have abnormal mammogram on 09/24/2022. Bone density on 09/24/2022 showed osteopenia. Repeat mammogram on 09/26/2022 showed bilateral multifocal masses suspicious for malignancy. Ultrasound on 09/26/2022 also showed bilateral multifocal masses. MRI of the breast on 10/21/2022 showed extensive multicentric tumor involvement in both breast with no lymph nodes identified in the axilla. She had core biopsies done on 10/01/2022, pathology showed invasive lobular carcinoma in the right breast, left breast showed invasive ductal carcinoma. Right breast was ER positive greater than95%, IL +85%, HER2 negative. Left breast was ER positive greater than 95% IL +85% and had to negative. She went on to have right and left mastectomies with sentinel nodes dissection on 11/12/2022. HadHysterectomy at [address] on 12/04/2022 showed ? L axillary node otherwise negative. BRCA 1 and 2 wasnegative on 11/27/2022. Bone scan on 12/08/2022 was negative. Oncotype DX recurrence score 11 for L and 12 for R on 12/17/2022. US L axilla on 12/16/2022 showed seroma. ctDNA on 11/27/2022 was negative. Oncotype DX RS 11 for L breast, RS 12 for R breast. She got adjuvant Radiation therapy to L breast from01/12/2023 to 02/13/2023. She start adjuvant Tamoxifen on 03/28/2023. Interval History The patient is presenting to clinic for a planned 6 month follow up. Confirms good tolerance and good adherence to tamoxifen. Reports ongoing fatigue. Believes recent rainy/cold weather may also be contributing. Often too tired to exercise in the evenings after work. Pelvic exam performed by her pcp, up to date. Reports intermittent, mild bilat hip pain alternating with ankle stiffness x several months. Deniesdaily, persistent or worsening bone/joint pain. Specifically denies weight loss/gain, headaches, dizziness, CP, palpitations, cough, SOB, abd pain,changes in her bowel habits, swelling of her extremities. PFSH Medical History Laryngitis Cancer Hx of radiation therapy Encounter for education Multiple thyroid nodules Thyroid nodule Abnormal chest CT Left breast lump Wears partial dentures Wears glasses Post-menopausal Kidney stone Scoliosis Gastric reflux Non-smoker History of stress test 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 of right breast in female Surgical History History of partial thyroidectomy History of colonoscopy History of lymph node dissection of axilla S/P bilateral mastectomy History of bilateral breast biopsy (~09/2022) Hx of exploratory laparotomy Hx of shoulder surgery History of partial hysterectomy Family History Mother Cancer Sister Thyroid disorder Cancer Social History Smoking Status: Never smoker alcohol intake: current alcohol intake frequency: a few times a month substance use type: does not use ROS ROS Narrative Negative except as documented in the interval HPI Intake Vital Signs 09/08/24 14:00 03/02/25 14:10 Height 5 ft 3 in 5 ft 3 in Weight: 199 lb 3 oz BMI 35.2 BP 155/90 H Blood Pressure Location Rt brachial Position Sitting Respiration 18 Pulse 73 Pulse Source Monitor Temp 98.8 F Temperature Source Temporal Artery Pulse Oximetry (%) 98 Oxygen Delivery Method room air Intake Is patient in pain?: No Allergies No Known Allergies Allergy (Verified 03/02/25 14:14) Medications ?Medication ?Instructions ?Recorded ?Confirmed ?Type calcium 500 mg (as 3 tab PO DAILY 10/19/23 0602/19 History carbonate)-vitamin D3 10 mcg (400 unit) tablet (Calcium 500 + D) calcitriol 0.25 mcg capsule 0.25 mcg PO BID #180 caps 10/31/24 03/02/25 Rx levothyroxine 137 mcg tablet 137 mcg PO DAILY #90 tabs 11/15/24 03/02/25 Rx pimecrolimus 1 % topical cream 1 applic topical BID 03/02/25 History tamoxifen 20 mg tablet 20 mg PO QHS 90 days #90 tab s 03/02/25 03/02/25 Rx Central Venous Access Central Venous Access: No Laboratory Tests 03/02/25 13:04 WBC 6.7 Hgb 13.8 Hct 39.6 Plt Count 254 Absolute Neuts (auto) 4.2 Sodium 140 Potassium 4.5 Chloride 104 BUN 17 Creatinine 0.87 Glucose 101 H Calcium 8.9 Total Bilirubin 0.30 AST 39 H ALT 39 H Alkaline Phosphatase 73 Albumin 4.1 Exam Physical Exam Const alert, oriented x3 and no apparent distress HEENT normocephalic, external ears normal and external nose normal Eyes PERRL, EOMs intact bilaterally and no scleral icterus Neck full ROM and supple Lymph Lymphatic: no lymphadenopathy noted Chest Chest Narrative: +R mastectomy surgical scar. + L mastectomy surgical scar. Resp normal respiratory effort and clear to auscultation bilaterally Cardio regular rate, regular rhythm, S1 normal heart sound, S2 normal heart sound and no murmurs GI normal to inspection, nondistended, normoactive bowel sounds no CVA tenderness Back/Spine Back/Spine Narrative: + scoliosis. Extremity normal to inspection and no clubbing, cyanosis or edema Neuro oriented x3, CN's II-XII intact bilaterally, moves all extremities and no focal motor deficits Psych mental status grossly normal Coding Level of Care Code Off vis,est,level 4 Exam Problem Focused Diagnoses Malignant neoplasm of overlapping sites of right breast in female, estrogen receptor positive C50.811; Z17.0 Breast location: overlapping sites of breast Estrogen receptor status: positive Patient sex: female Malignant neoplasm of central portion of left breast in female, estrogen receptor positive C50.112;Z17.0 Breast location: central portion of breast Estrogen receptor status: positive Patient sex: female Assessment and Plan Assessment and Plan (1) Breast cancer, right: Status: Chronic Qualifiers: Breast location: overlapping sites of breast Estrogen receptor status: positive Patient sex: femaleQualified Code(s): C50.811 - Malignant neoplasm of overlapping sites of right female breast; Z17.0 - Estrogen receptor positive status [ER+] Comment: Invasive lobular carcinoma, multifocal, largest focus 1.3 cm, grade 2, margins negative lymph nodes1 negative. Pathologic staging pT1c pN0. Anatomic stage IA. Invasive Ductal cancer tumor size 5mm, grade 1. ER >95% positive, IL 85% positive, Her2 negative. Oncotype DX 12. On Adjuvant Tamoxifen since 03/28/2023. Comes for follow up. Tolerating therapy. Labs reviewed and OK. No evidence of disease clinically. Plan: To continue Tamoxifen 20mg daily. (2) Breast cancer, left: Status: Chronic Qualifiers: Breast location: central portion of breast Estrogen receptor status: positive Patient sex: female Qualified Code(s): C50.112 - Malignant neoplasm of central portion of left female breast; Z17.0 - Estrogen receptor positive status [ER+] Comment: Invasive ductal cancer tumor size 2.0 cm, grade 2, margins negative, lymph nodes 22 examined with 2positive for macrometastasis, 1 positive for micrometastasis. Pathologic staging pT1c pN1a, anatomic stage IIA. ER >95% positive, IL 85% positive, Her2 negative. S/P Hysterectomy at [address] shows L axillary node otherwise no evidence of metastatic disease. US on 12/16/2022 reviewed, + seroma L axilla. Bone scan is negative. Oncotype DX recurrence score 11. Genetic testing BRCA 1&2 negative. Finished adjuvant Radiation to L breast on 02/13/2023. Started adjuvant Tamoxifen on 03/28/2023. Comes for follow up. Tolerating therapy. No clinical evidence of disease. Plan: To continue adjuvant Tamoxifen 20mg daily. Orders: Orders CBC W/Diff, Automated 6 Months C50.112 - Malignant neoplasm of central portion of left female breast, C50.811 - Malignant neoplasm of overlapping sites of right female breast, Z17.0 - Estrogen receptor positive status [ER+] Comprehensive Metabolic Profil 6 Months C50.112 - Malignant neoplasm of central portion of left female breast, C50.811 - Malignant neoplasm of overlapping sites of right female breast, Z17.0 - Estrogen receptor positive status [ER+] Medications: Refilled tamoxifen 20 mg PO QHS 90 days 90 tabs 3RF 03/02/25 1454 h SPRING SETTER SPRING SETTER-C> Date _ Yuliana Osiris SPRING SETTER SPRING SETTER-C Cosigner Signature: Date (if applicable) CC: Dr. Shonda Stinson MD ~ [facility]02-20-2025 Evaluation note* Diagnosis Onset Date Resolution Status Admit Date Invasive ductal carcinoma of left breast acute November 17, 025 9:19am Invasive lobular carcinoma o f right breast in female acute November 17, 2024 9:19am S/P bilateral mastectomy acute November 17, 2024 9:19am Breast cancer, left chronic March 02, 2025 1:02pm Breast cancer, right chronic March 02, 2025 1:02pm [facility] Work Phone: 1(919) 907-733111-28-2023 Discharge summary Author Atilio Nathan [facility] August 25, 2023 10:53am Note Date/Time August 25, 2023 10:51am [facility] Medical Records Department [address] [place] [id number] Instructions for Home/Discharge Instructions 08/25/23 1047 MR#: [id number] Acct: [id number] Name: KAVEH MORAN Rep #:[id number] : 1965 58 From: Atilio Virgen PCP: Dr. Shonda Stinson MD Status:[facility] [place] Discharge Instructions Diet Discharge Diet: No restrictions (However recommend a liquid to soft diet initially postoperatively) Activity Discharge Activity: May Not Drive (While it remains difficult to check blind spots quickly) May shower in (days): 2 Ice area for (Minutes): 20 Lifting Restrictions: No lifting greater than 15 pounds for 2 weeks after surgery Dressing / Incision Call your doctor if your incision/area has: Continuous Slow Oozing, Sudden Increased Bleeding, Increased Pain/ Swelling, Increased Redness and Swelling at the incision site Call your doctor if you observe: Numbness or Tingling Remove Dressing in: 2 days (Please leave Steri-Strips intact until they fall offspontaneously or are taken off at your follow-up visit) Cleanse incision/area with: Soap & Water Follow Up Care Please Follow Up With: Atilio Nathan MD When: 7-10 days postop Test Results: Test results from this visit will be discussed in further detail at your follow- up appointment, if applicable. Discharge Plan Admission Primary Reason for Your Visit: Thyroid lobectomy Attending Provider: Atilio Nathan Primary Care Provider: Shonda Stinson Discharge Orders/Prescriptions Prescriptions: Continued multivitamin Tablet 1 tab PO DAILY calcium carbonate-vitamin D3 [Calcium 500 + D] 500 mg-10 mcg (400 unit) Tablet 1 tab PO DAILY tamoxifen 20 mg tablet 20 mg PO QHS Referrals / Follow Up: Shonda Stinson MD [Primary Care Provider] - Disposition Disposition (needs filled in before D/C Order can be placed): Home, Self Care 08/25/23 1053<Electronically signed by Atilio Nathan MD>Atilio Nathan MD CC: Dr. Shonda Stinson MD ~ Signed [facility] Work Phone: 1(576) 751-424311-28-2023 History and physical note Author Atilio Nathan [facility] August 25, 2023 7:32am Note Date/Time August 25, 2023 7:32am [facility] Medical Records Department [address] [place] [address] History & Physical Exam 08/25/23 0731 MR#: [id number] Acct: [id number] Name: KAVEH MORAN Rep #:[id number] : 1965 58 From: Atilio Virgen PCP: Dr. Shonda Stinson MD Status:[facility] Location: [place] [address] History and Physical Date of Admission: 08/25/23 MR#: [id number] Acct: [id number] Name: KAVEH MORANE Rep #: [id number] : 1965 Provider: Dr. Atilio Nathan MD Age/Sex: 58/F [facility] [facility] Status: Signed Intake Vital Signs 05/28/2314:11 06/10/2308:26 Height 5 ft 4 in 5 ft 4 in Weight: 201 lb 7 oz 201 lb BMI 34.5 34.4 BP 146/88 H 144/77 H Blood Pressure Location Rt brachial Rt brachial Position Sitting Sitting Respiration 16 16 Pulse 68 Pulse Source Monitor Temp 98.3 F Pulse Oximetry (%) 100 Oxygen Delivery Method room air Intake Visit Reasons: DISCUSS POSSIBLE THYROID SURGERY Chief Complaint: discuss thyroid surgery Quality Coordinator Required: No Is patient in pain?: No Allergies No Known Allergies Allergy (Verified 06/10/23 08:27) Medications calcium carbonate 500 mg-vitamin D3 10 mcg (400 unit) tablet (Calcium 500 + D) 1tab PO DAILY 11/05/22 [History Confirmed 06/10/23] echinacea 400 mg capsule 400 mg PO DAILY 11/05/22 [History Confirmed 06/10/23] multivitamin 1 tab PO DAILY 11/05/22 [History Confirmed 06/10/23] silver sulfadiazine 1 % topical cream 1 applic topical BID #85 grams 02/12/23 [Rx Confirmed 06/10/23] tamoxifen 20 mg tablet 20 mg PO DAILY #90 tabs 05/28/23 [Rx Confirmed 06/10/23] fexofenadine 180 mg tablet mg PO 06/10/23 [History Confirmed 06/10/23] PFSH Medical History Abnormal chest CT Encounter for education Gastric reflux History of stress test 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 of right breast in female Kidney stone Left breast lump Multiple thyroid nodules Non-smoker Post-menopausal Scoliosis Thyroid nodule Wears glasses Wears partial dentures Surgical History History of bilateral breast biopsy (~09/2022) History of lymph node dissection of axilla History of partial hysterectomy Hx of exploratory laparotomy Hx of shoulder surgery S/P bilateral mastectomy Family History Mother CancerSister Thyroid disorder Cancer Social History Smoking Status: Never smoker alcohol intake: current alcohol intake frequency: a few times a month substance use type: does not use HPI HPI HPI: Patient is a 57-year-old female who presents for thyroid nodules. They are referred for surgical consultation from Dr. Villegas. This was discovered incidentally during routine staging CT imaging for patient's recent diagnosis ofbreast cancer. 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 Last visit was 12/25/2022. She presents today with her . She continues to deny most compressive symptoms?including no cough, no swallowing difficulties, and no hoarseness. Once again her mentions that he believes her snoringhas become progressive. She also states that she always feels like somethingis stuck in her neck. Below is recapitulated from patient's consultation visit for ease of review: They do admit to some experience of difficulty with swallowing. However, they qualify this stating that this has been present for years and has not been necessarily progressive. They do not complain of a new cough. They do not appreciate new voice changes. They do have a history of snoring. Patient's , who accompanies her to today's visit, states she believes that the snoring has become somewhat more pronounced since her bilateral mastectomy?patient quickly explains this stating that she is now sleeping on herback whereas previously she was a side sleeper. Additionally, their weight has been stable, despite some attempts at weight loss. There is also a history of recent fatigue, but patient has attributed this to the recent stress of her diagnosis and not sleeping well. They do not have a history of heat or cold intolerance, but interestingly reports that they do not sweat normally and instead expressed their body temperature with facial flushing. Other symptoms include: Pertinent negatives of no significant gastrointestinal manifestations, radio announcer of palpitations, and radio announcer of tremor. They do have a family history of thyroid disorders or endocrinopathies. Mrs. Moran has 3 sisters and she states all 3 of been diagnosed with Landy's thyroiditis. She denies any awareness of cancer diagnosis or any requiring surgery. There are no other endocrine issues of which she is aware. There is no history of prior radiation exposure, but she meets with radiation oncology tomorrow to discuss whether or not she will require this as part of her treatment plan for breast cancer. Previous work-up has included thyroid ultrasound. This was read as a right thyroid lobe that measured 5.2 x 1.8 x 2 cm. Radiology noted twice that there were no thyroid nodules present within this lobe. The left thyroid lobe measured 6.4 x 2.2 x 2.5 cm. They did identify a 4.1 x 4.2 x 3.3 cm nodule of the left inferior pole which they rated as a TI-RADS 4 based on its solid composition and hypoechoic echogenicity. Additionally they identified a 2.1 x 1.6 x 1.6 cm nodule within the isthmus that was also rated as a TI-RADS 4. Given their size, radiology recommended FNA biopsy for both nodules. An FNA hasnot been performed. Other tests include: [TSH, T3, T4,etc ] ROS General General: No weight change, appetite, fatigue, colon cancer or breast cancer HEENT HEENT: No difficulty swallowing, eye injury, eye surgery, swollen glands or hoarseness Endo Endocrine: No thyroid disease, diabetes mellitus, thyroid cancer, Hair loss, heat intolerance or cold intolerance Skin Skin: No rash or changing moles Breast Breast: Yes abnormal mammogram and abnormal US; No left breast lump, right breast lump, nipple discharge, breast pain or breast enlargement Musc Musculoskeletal: Yes back problems; No arthritis, rheumatoid arthritis, gout or joint pain Cardio Cardiovascular: No murmur, pacemaker, heart disease, atrial fibrillation, high blood pressure, heart attack, heart stent, palpitations, shortness of breat withexertion or chest pain Psych Psychiatric: No depression, anxiety or hearing voices Resp Respiratory: No shortness of breath, No sleep apnea, No cough, No COPD, No asthma, No emphysema and No wheezing Gastro Gastrointestinal: No abdominal pain, No nausea or vomiting, No diarrhea, No constipation, No blood in stool, No acid reflux, No hemorrhoids, No ulcers, No gallbladder problem and No black,tarry stools Jonathan Hematologic: No blood thinners, No blood disorders, No bleeding, No anemia and No blood clots Exam Const General: cooperative, comfortable and no acute distress Orientation: alert, awake and oriented x3 Neck Other: Thyromegaly with thyroid nodularity appreciated. No lymphadenopathy appreciated. Patient's neck is nontender. Mildly positive Radhika sign present. Bedside ultrasound exam was performed and with patient in neck extension I am able to visualize the inferior pole of the left thyroid lobe and a cross-sectionof the innominate Assessment and Plan Assessment and Plan (1) Multiple thyroid nodules: Status: Acute Comment: This is a 58-year-old female, euthyroid from an endocrine standpoint, who presents for follow-up of incidentally discovered thyroid nodules during stagingwork-up for recent breast cancer diagnosis. 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 She is status post FNA biopsy of a left-sided,isthmic, and right-sided nodule on November of this year. All 3 returned consistent with benign cytopathology ([place] 2). I held a lengthy conversation with her and her regarding the pros and cons of lobectomy with isthmusectomy versus total thyroidectomy. This conversation was facilitated with a hand drawing of the patient's anatomy as well as review of her sonographic and CT imaging. Additional discussion was held of the procedure?specific risks including recurrent laryngeal nerve injury and parathyroid compromise. It is Mrs. Moran's desire at to proceed with left thyroid lobectomy and isthmusectomy using intraoperative nerve monitoring. Plan: ? Left thyroid lobectomy with isthmusectomy using intraoperative nerve monitoring. Disposition planned as outpatient procedure I have examined the patient and the H&P has been reviewed. There are no clinicalchanges since date of exam. She confirms that she has been able to clear the laryngitis she reported prior to her previously planned operation. She has had no further diagnoses. Procedure and post procedure expectations were reviewed. All questions were answered from her and her . I have reiterated that aslong as things proceed uneventfully through her case we will plan for outpatientdisposition. Will now proceed to the operating room for planned left thyroid lobectomy with isthmusectomy using intraoperative nerve monitoring. 08/25/23 0732 <Electronically signed by Atilio Nathan MD> Cosigner Signature (if applicable): CC: Dr. Shonda Stinson MD; Dr. Atilio Nathan MD~ Signed [facility] Work Phone: Evaluation noteNo assessment information available [facility] Work Phone: Evaluation note* Diagnosis Onset Date Resolution Status Breast mass, left acute Mass of multiple sites of right breast acute [facility] Work Phone: Evaluation note* Diagnosis Onset Date Resolution Status Invasive ductal carcinoma of left breast acute Invasive lobular carcinoma of right breast in female acute History of lymph node dissection of axilla acute Invasive ductal carcinoma of left breast acute Invasive lobular carcinoma of right breast in female acute S/P bilateral mastectomy acu te History of lymph node dissection of axilla acute Invasive ductal carcinoma of left breast acute Invasive lobular carcinoma of right breast in female acute S/P bilateral mastectomy acu te History of lymph node dissection of axilla acute Invasive ductal carcinoma of left breast acute Invasive lobular carcinoma of right breast in female acute S/P bilateral mastectomy acu te Breast cancer, left acute Breast cancer, right acute Breast cancer, left acute Breast cancer, right acute [facility] Work Phone: Evaluation note* Diagnosis Onset Date Resolution Status Invasive ductal carcinoma of left breast acute Invasive lobular carcinoma of right breast in female acute History of lymph node dissection of axilla acute Invasive ductal carcinoma of left breast acute Invasive lobular carcinoma of right breast in female acute S/P bilateral mastectomy acu te History of lymph node dissection of axilla acute Invasive ductal carcinoma of left breast acute Invasive lobular carcinoma of right breast in female acute S/P bilateral mastectomy acu te History of lymph node dissection of axilla acute Invasive ductal carcinoma of left breast acute Invasive lobular carcinoma of right breast in female acute S/P bilateral mastectomy acu te Breast cancer, left acute Breast cancer, right acute History of lymph node dissection of axilla acute Invasive ductal carcinoma of left breast acute Invasive lobular carcinoma of right breast in female acute S/P bilateral mastectomy acu te Breast cancer, left acute Breast cancer, right acute [facility] Work Phone: Evaluation note* Diagnosis Onset Date Resolution Status Invasive ductal carcinoma of left breast acute Invasive lobular carcinoma of right breast in female acute History of lymph node dissection of axilla acute Invasive ductal carcinoma of left breast acute Invasive lobular carcinoma of right breast in female acute S/P bilateral mastectomy acu te History of lymph node dissection of axilla acute Invasive ductal carcinoma of left breast acute Invasive lobular carcinoma of right breast in female acute S/P bilateral mastectomy acu te History of lymph node dissection of axilla acute Invasive ductal carcinoma of left breast acute Invasive lobular carcinoma of right breast in female acute S/P bilateral mastectomy acu te Breast cancer, left acute Breast cancer, right acute History of lymph node dissection of axilla acute Invasive ductal carcinoma of left breast acute Invasive lobular carcinoma of right breast in female acute S/P bilateral mastectomy acu te Breast cancer, left acute Breast cancer, right acute History of lymph node dissection of axilla acute Invasive ductal carcinoma of left breast acute Invasive lobular carcinoma of right breast in female acute S/P bilateral mastectomy acu te Breast cancer, left acute Breast cancer, right acute Multiple thyroid nodules acu te Breast cancer, left acute Breast cancer, right acute [facility] Work Phone: Evaluation note* Diagnosis Onset Date Resolution Status Invasive ductal carcinoma of left breast acute Breast cancer, left chronic Breast cancer, left chronic Acute radiation dermatitis a cute Breast cancer, left chronic Breast cancer, right chronic Encounter for education acut e Breast cancer, left chronic Breast cancer, right chronic Breast cancer, left chronic Breast cancer, right chronic [facility] Work Phone: Evaluation note* Diagnosis Onset Date Resolution Status Breast cancer, left chronic Breast cancer, right chronic Multiple thyroid nodules acu te Breast cancer, left chronic Breast cancer, right chronic [facility] Work Phone: Evaluation note* Diagnosis Onset Date Resolution Status Breast cancer, left chronic Breast cancer, right chronic History of lobectomy of thyroid acute 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 ganga gical removal of thyroid gland acute Breast cancer, left chronic Breast cancer, right chronic History of lobectomy of thyroid acute 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 ganga gical removal of thyroid gland acute Hypothyroidism (acquired) ac citizen [place] [facility] Work Phone: Evaluation note* Diagnosis Onset Date Resolution Status History of lobectomy of thyroid acute 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 ganga gical removal of thyroid gland acute Breast cancer, left chronic Breast cancer, right chronic History of lobectomy of thyroid acute 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 ganga gical removal of thyroid gland acute Hypothyroidism (acquired) ch ronic 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 ganga gical removal of thyroid gland acute Hypothyroidism (acquired) ch ronic Invasive ductal carcinoma of left breast acute Invasive lobular carcinoma of right breast in female acute S/P bilateral mastectomy acu [facility] Work Phone: Instructions* Name Dates Details How to access [employer] online Indication:Upper Respiratory Infection (Renamed from Infection of the upper respiratory tract) Start:27-Apr-2015 Instruction Type:Patient Education How to access health [facility] online - Detail Indication:Upper Respiratory Infection (Renamed from Infection of the upper respiratory tract) Start:27-Apr-2015 Instruction Type:Patient Education Patient Instructions Indication:Upper Respiratory Infection (Renamed from Infection of the upper respiratory tract) Start:27-Apr-2015 Instruction Type:Provider Instructions for Treatment How to access health informa tion online Indication:ANEMIA, VITAMIN B12 DEFICIENCY NEC Start:31-May-2014 Instruction Type:Patient Education How to access health informa tion online - Detail Indication:ANEMIA, VITAMIN B12 DEFICIENCY NEC Start:31-May-2014 Instruction Type:Patient Education Patient Instructions Indication:Hyperlipidemia Start:31-May-2014 Instruction Type:Provider Instructions for Treatment Patient Instructions Indication:Well woman exam Start:12-May-2014 Instruction Type:Provider Instructions for Treatment [facility]; [facility] Work Phone: progress note Author Yuliana Newell [facility] Services Note Date/Time March 02, 2025 2:54p m [facility] [address] [address] OFFICE VISIT Date of Service: 03/02/25 1410 MR#: [id number] Acct: [id number] Name: KAVEH MORAN Rep #: [id number] : 1965 From: Yuliana Bourgeois ch SPRING SETTER SPRING SETTER-C Age/Sex: 60/F Location: [facility] Status: Signed HPI Subjective Date of Service 03/02/25 Chief Complaint F/u for R & L breast cancer. History of Present Illness 60 y.o. woman found to have abnormal mammogram on 09/24/2022. Bone density on 09/24/2022 showed osteopenia. Repeat mammogram on 09/26/2022 showed bilateral multifocal masses suspicious for malignancy. Ultrasound on 09/26/2022 also showed bilateral multifocal masses. MRI of the breast on 10/21/2022 showed extensive multicentric tumor involvement in both breast with no lymph nodes identified in the axilla. She had core biopsies done on 10/01/2022, pathology showed invasive lobular carcinoma in the right breast, left breast showed invasive ductal carcinoma. Right breast was ER positive greater than 95%, IL +85%, HER2 negative. Left breast was ER positive greater than 95% IL +85% and had to negative. She went on to have right and left mastectomies with sentinel nodes dissection on 11/12/2022. Had Hysterectomy at 28[address] on 12/04/2022 showed ? L axillary node otherwise negative. BRCA 1 and 2 was negative on 11/27/2022. Bone scan on 12/08/2022 was negative. Oncotype DX recurrence score 11 for L and 12 for R on 12/17/2022. US L axilla on 12/16/2022 showed seroma. ctDNA on 11/27/2022 was negative. Oncotype DX RS 11 for L breast, RS 12 for R breast. She got adjuvant Radiation therapy to L breast from 01/12/2023 to 02/13/2023. She start adjuvant Tamoxifen on 03/28/2023. Interval History The patient is presenting to clinic for a planned 6 month follow up. Confirms good tolerance and good adherence to tamoxifen. Reports ongoing fatigue. Believes recent rainy/cold weather may also be contributing. Often too tired to exercise in the evenings after work. Pelvic exam performed by her pcp, up to date. Reports intermittent, mild bilat hip pain alternating with ankle stiffness x several months. Denies daily, persistent or worsening bone/joint pain. Specifically denies weight loss/gain, headaches, dizziness, CP, palpitations, cough, SOB, abd pain, changes in her bowel habits, swelling of her extremities. [facility] Medical History Laryngitis Cancer Hx of radiation therapy Encounter for education Multiple thyroid nodules Thyroid nodule Abnormal chest CT Left breast lump Wears partial dentures Wears glasses Post-menopausal Kidney stone Scoliosis Gastric reflux Non-smoker History of stress test 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 of right breast in female Surgical History History of partial thyroidectomy History of colonoscopy History of lymph node dissection of axilla S/P bilateral mastectomy History of bilateral breast biopsy (~09/2022) Hx of exploratory laparotomy Hx of shoulder surgery History of partial hysterectomy Family History Mother Cancer Sister Thyroid disorder Cancer Social History Smoking Status: Never smoker alcohol intake: current alcohol intake frequency: a few times a month substance use type: does not use ROS ROS Narrative Negative except as documented in the interval HPI Intake Vital Signs 09/08/24 14:00 03/02/25 14:10 Height 5 ft 3 in 5 ft 3 in Weight: 199 lb 3 oz BMI 35.2 BP 155/90 H Blood Pressure Location Rt brachial Position Sitting Respiration 18 Pulse 73 Pulse Source Monitor Temp 98.8 F Temperature Source Temporal Artery Pulse Oximetry (%) 98 Oxygen Delivery Method room air Intake Is patient in pain?: No Allergies No Known Allergies Allergy (Verified 03/02/25 14:14) Medications ?Medication ?Instructions ?Recorded ?Confirmed ?Type calcium 500 mg (as 3 tab PO DAILY 10/19/2302/19 History carbonate)-vitamin D3 10 mcg (400 unit) tablet (Calcium 500 + D) calcitriol 0.25 mcg capsule 0.25 mcg PO BID #180 caps 10/31/24 03/02/25 Rx levothyroxine 137 mcg tablet 137 mcg PO DAILY #90 tabs 11/15/24 03/02/25 Rx pimecrolimus 1 % topical cream 1 applic topical BID 03/02/25 History tamoxifen 20 mg tablet 20 mg PO QHS 90 days #90 tab s 03/02/25 03/02/25 Rx Central Venous Access Central Venous Access: No Laboratory Tests 03/02/25 13:04 WBC 6.7 Hgb 13.8 Hct 39.6 Plt Count 254 Absolute Neuts (auto) 4.2 Sodium 140 Potassium 4.5 Chloride 104 BUN 17 Creatinine 0.87 Glucose 101 H Calcium 8.9 Total Bilirubin 0.30 AST 39 H ALT 39 H Alkaline Phosphatase 73 Albumin 4.1 Exam Physical Exam Const alert, oriented x3 and no apparent distress HEENT normocephalic, external ears normal and external nose normal Eyes PERRL, EOMs intact bilaterally and no scleral icterus Neck full ROM and supple Lymph Lymphatic: no lymphadenopathy noted Chest Chest Narrative: +R mastectomy surgical scar. + L mastectomy surgical scar. Resp normal respiratory effort and clear to auscultation bilaterally Cardio regular rate, regular rhythm, S1 normal heart sound, S2 normal heart sound and no murmurs GI normal to inspection, nondistended, normoactive bowel sounds no CVA tenderness Back/Spine Back/Spine Narrative: + scoliosis. Extremity normal to inspection and no clubbing, cyanosis or edema Neuro oriented x3, CN's II-XII intact bilaterally, moves all extremities and no focal motor deficits Psych mental status grossly normal Coding Level of Care Code Off vis,est,level 4 Exam Problem Focused Diagnoses Malignant neoplasm of overlapping sites of right breast in female, estrogen receptor positive C50.811; Z17.0 Breast location: overlapping sites of breast Estrogen receptor status: positive Patient sex: female Malignant neoplasm of central portion of left breast in female, estrogen receptor positive C50.112; Z17.0 Breast location: central portion of breast Estrogen receptor status: positive Patient sex: female Assessment and Plan Assessment and Plan (1) Breast cancer, right: Status: Chronic Qualifiers: Breast location: overlapping sites of breast Estrogen receptor status: positive Patient sex: female Qualified Code(s): C50.811 - Malignant neoplasm of overlapping sites of right female breast; Z17.0 - Estrogen receptor positive status [ER+] Comment: Invasive lobular carcinoma, multifocal, largest focus 1.3 cm, grade 2, margins negative lymph nodes 1 negative. Pathologic staging pT1c pN0. Anatomic stage IA. Invasive Ductal cancer tumor size 5mm, grade 1. ER >95% positive, IL 85% positive, Her2 negative. Oncotype DX 12. On Adjuvant Tamoxifen since 03/28/2023. Comes for follow up. Tolerating therapy. Labs reviewed and OK. No evidence of disease clinically. Plan: To continue Tamoxifen 20mg daily. (2) Breast cancer, left: Status: Chronic Qualifiers: Breast location: central portion of breast Estrogen receptor status: positive Patient sex: female Qualified Code(s): C50.112 - Malignant neoplasm of central portion of left female breast; Z17.0 - Estrogen receptor positive status [ER+] Comment: Invasive ductal cancer tumor size 2.0 cm, grade 2, margins negative, lymph nodes 22 examined with 2 positive for macrometastasis, 1 positive for micrometastasis. Pathologic staging pT1c pN1a, anatomic stage IIA. ER >95% positive, IL 85% positive, Her2 negative. S/P Hysterectomy at [address] shows L axillary node otherwise no evidence of metastatic disease. US on 12/16/2022 reviewed, + seroma L axilla. Bone scan is negative. Oncotype DX recurrence score 11. Genetic testing BRCA 1&2 negative. Finished adjuvant Radiation to L breast on 02/13/2023. Started adjuvant Tamoxifen on 03/28/2023. Comes for follow up. Tolerating therapy. No clinical evidence of disease. Plan: To continue adjuvant Tamoxifen 20mg daily. Orders: Orders CBC W/Diff, Automated 6 Months C50.112 - Malignant neoplasm of central portion of left female breast, C50.811 - Malignant neoplasm of overlapping sites of right female breast, Z17.0 - Estrogen receptor positive status [ER+] Comprehensive Metabolic Profil 6 Months C50.112 - Malignant neoplasm of central portion of left female breast, C50.811 - Malignant neoplasm of overlapping sites of right female breast, Z17.0 - Estrogen receptor positive status [ER+] Medications: Refilled tamoxifen 20 mg PO QHS 90 days 90 tabs 3RF 03/02/25 8844 <Electronically signed by Yuliana dey NP, NP-C> Date _ Yuliana Newell NP, NP-C Cosigner Signature: Date (if applicable) CC: Dr. Shonda Stinson MD ~ [facility] Work Phone: Reason for referral (narrative)No reason for referral information availableBlVeterans [facility] [place] Work Phone: Family History No Family History Records FoundUnknown Family Member Name Dates Details Family Members In General Comments:has 4 kids- younges t daughter at [employer] Status:Active Father Comments:HBP- father ag e 62- massive mi- first mi age 60 Status:Active Mother Comments:High cholesterol, N on-hodgkins lymphoma- living with cad and s/p cabg in her 60s- 2012- from another cancer - lung and brain Status:Active Sister 1 Comments:Thyroid dx- all 3 s isters with thyroid disease Status:Active Relationship Condition Age at Onset Recorded Date/T timoteo mother Malignant neoplasm Unknown sister Disorder of thyroid Unknown Malignant neoplasm Unknown Chief Complaint and Reason for Visit Chief Complaint SCREENING, MENOPAUSA L Chief Complaint SCREENING, MENOPAUSA L ABN MAMM Bilat breast masses/ birads V L & R BREAST MASS TISSUE Reason for Visit Breast mass, left Mass of multiple sites of right breast Chief Complaint SCREENING, MENOPAUSA L ABN MAMM Bilat breast masses/ birads V L & R BREAST MASS TISSUE MULTIPLE BREAST MASSES Reason for Visit Breast mass, left Mass of multiple sites of right breast Chief Complaint SCREENING, MENOPAUSA L ABN MAMM Bilat breast masses/ birads V L & R BREAST MASS TISSUE MULTIPLE BREAST MASSES PREOP Wants a sit down to discuss surgery BILAT BREAST CANCER BILAT BREAST CANCER BILAT BREAST CANCER HUEY DRAIN REMOVAL HUEY Drain Removal NEW-BREAST CA MED ONC Malignant neoplasm of central portion of left fema Malignant neoplasm of central portion of left fema 2WK F/U 11/20 Drain Removal 2WKS LABS PRIOR REVIEW CT/BONE SCAN ONCOTYPE Reason for Visit Invasive ductal carc inoma of left breast Invasive lobular carcinoma of right breast in female History of lymph node dissection of axilla 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 of right breast in female S/P bilateral mastectomy History of lymph node dissection of axilla 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 of right breast in female S/P bilateral mastectomy History of lymph node dissection of axilla 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 of right breast in female S/P bilateral mastectomy Breast cancer, left Breast cancer, right Breast cancer, left Breast cancer, right Chief Complaint SCREENING, MENOPAUSA L ABN MAMM Bilat breast masses/ birads V L & R BREAST MASS TISSUE MULTIPLE BREAST MASSES PREOP Wants a sit down to discuss surgery BILAT BREAST CANCER BILAT BREAST CANCER BILAT BREAST CANCER HUEY DRAIN REMOVAL HUEY Drain Removal NEW-BREAST CA MED ONC Malignant neoplasm of central portion of left fema Malignant neoplasm of central portion of left fema 2WK F/U 11/20 Drain Removal 2WKS LABS PRIOR REVIEW CT/BONE SCAN ONCOTYPE UNSPECIFIED LUMP IN LEFT BREAST Reason for Visit Invasive ductal carc inoma of left breast Invasive lobular carcinoma of right breast in female History of lymph node dissection of axilla 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 of right breast in female S/P bilateral mastectomy History of lymph node dissection of axilla 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 of right breast in female S/P bilateral mastectomy History of lymph node dissection of axilla 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 of right breast in female S/P bilateral mastectomy Breast cancer, left Breast cancer, right History of lymph node dissection of axilla 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 of right breast in female S/P bilateral mastectomy Breast cancer, left Breast cancer, right Chief Complaint SCREENING, MENOPAUSA L ABN MAMM Bilat breast masses/ birads V L & R BREAST MASS TISSUE MULTIPLE BREAST MASSES PREOP Wants a sit down to discuss surgery BILAT BREAST CANCER BILAT BREAST CANCER BILAT BREAST CANCER HUEY DRAIN REMOVAL HUEY Drain Removal NEW-BREAST CA MED ONC Malignant neoplasm of central portion of left fema Malignant neoplasm of central portion of left fema 2WK F/U 11/20 Drain Removal 2WKS LABS PRIOR REVIEW CT/BONE SCAN ONCOTYPE UNSPECIFIED LUMP IN LEFT BREAST 2WK F/U 11/20 Drain Removal 2WKS NO LABS REVIEW ONCOTYPE Thyroid Biopsy CONSULT - BREAST Reason for Visit Invasive ductal carc inoma of left breast Invasive lobular carcinoma of right breast in female History of lymph node dissection of axilla 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 of right breast in female S/P bilateral mastectomy History of lymph node dissection of axilla 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 of right breast in female S/P bilateral mastectomy History of lymph node dissection of axilla 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 of right breast in female S/P bilateral mastectomy Breast cancer, left Breast cancer, right History of lymph node dissection of axilla 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 of right breast in female S/P bilateral mastectomy Breast cancer, left Breast cancer, right History of lymph node dissection of axilla 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 of right breast in female S/P bilateral mastectomy Breast cancer, left Breast cancer, right Multiple thyroid nodules Breast cancer, left Breast cancer, right Chief Complaint SCREENING, MENOPAUSA L ABN MAMM Bilat breast masses/ birads V L & R BREAST MASS TISSUE MULTIPLE BREAST MASSES PREOP Wants a sit down to discuss surgery BILAT BREAST CANCER BILAT BREAST CANCER BILAT BREAST CANCER HUEY DRAIN REMOVAL HUEY Drain Removal NEW-BREAST CA Malignant neoplasm of central portion of left fema Malignant neoplasm of central portion of left fema 2WK F/U 11/20 Drain Removal 2WKS LABS PRIOR REVIEW CT/BONE SCAN ONCOTYPE UNSPECIFIED LUMP IN LEFT BREAST 2WK F/U 11/20 Drain Removal 2WKS NO LABS REVIEW ONCOTYPE Thyroid Biopsy CONSULT - BREAST . Reason for Visit Invasive ductal carc inoma of left breast Invasive lobular carcinoma of right breast in female History of lymph node dissection of axilla 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 of right breast in female S/P bilateral mastectomy History of lymph node dissection of axilla 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 of right breast in female S/P bilateral mastectomy History of lymph node dissection of axilla 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 of right breast in female S/P bilateral mastectomy Breast cancer, left Breast cancer, right History of lymph node dissection of axilla 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 of right breast in female S/P bilateral mastectomy Breast cancer, left Breast cancer, right History of lymph node dissection of axilla 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 of right breast in female S/P bilateral mastectomy Breast cancer, left Breast cancer, right Multiple thyroid nodules Breast cancer, left Breast cancer, right Chief Complaint OTV OTV OTV OTV Amb Documentation . 8WKS NO LABS SCP 1 month f/u post RT breast LYMPHEDEMA BREAST RX HERE Reason for Visit Invasive ductal carc inoma of left breast Breast cancer, left Breast cancer, left Acute radiation dermatitis Breast cancer, left Breast cancer, right Encounter for education Breast cancer, left Breast cancer, right Breast cancer, left Breast cancer, right Chief Complaint . 12WKS LABS DISCUSS POSSIBLE THYROID SURGERY left Thyroidectomy w/isthmusectomy 4 month f/u breast Reason for Visit Breast cancer, left Breast cancer, right Multiple thyroid nodules Breast cancer, left Breast cancer, right Chief Complaint . 12WKS LABS DISCUSS POSSIBLE THYROID SURGERY left Thyroidectomy w/isthmusectomy 4 month f/u breast Left Thyroid lobectomy w/ishtmus & Left Thyroid lobectomy w/ishtmus & Reason for Visit Breast cancer, left Breast cancer, right Multiple thyroid nodules Breast cancer, left Breast cancer, right Chief Complaint left Thyroidectomy w /isthmusectomy 4 month f/u breast Left Thyroid lobectomy w/ishtmus & Left Thyroid lobectomy w/ishtmus & Left thyroid lobectomy 08-25 4MO LABS . 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 March 02, 2025 1:15p m Reason for Visit Admit Date Invasive ductal carcinoma of left breast November 17, 2024 9:19am Invasive lobular carcinoma of right [facility] in female November 17, 2024 9:19am S/P bilateral mastectomy November 17, 2024 9:19am Breast cancer, left March 02, 2025 1:02p m Breast cancer, right March 02, 2025 1:02 pm Chief Complaint Admit Date 6MO LABS March 02, 2025 1:02p m . March 02, 2025 1:15p m 1 Y FU April 14, 2025 8:14 am Reason for Visit Admit Date Breast cancer, left March 02, 2025 1:02p m Breast cancer, right March 02, 2025 1:02 pm 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 surgical remova l of thyroid gland April 14, 2025 8:14am Hypothyroidism (acquired) April 14 8:14am Obesity April 14, 2025 8:14 am Advance Directives No Advanced Directives Records Found Advance Directive Response Recorded Date/ Time Living Will No November 12 023 5:41pm Power of Wet Pan Operator No November 12, 2022 5:41pm Advance Directive Response Recorded Date/ Time Living Will No August 13 023 10:18am Power of Wet Pan Operator No August 13, 2023 10:18am Advance Directive Response Recorded Date/ Time Living Will No August 13 11:18am Power of Wet Pan Operator No August 13, 2023 11:18am Advance Directive Response Recorded Date/ Time Living Will No November 12 5:41pm Do you have a Healthcare Power of Wet Pan Operator? No November 12, 2022 5:41pm Advance Directive Response Recorded Date/ Time Living Will No August 13 11:18am Do you have a Healthcare Power of Wet Pan Operator? No August 13, 2023 11:18am Living Will No November 12 5:41pm Do you have a Healthcare Power of Wet Pan Operator? No November 12, 2022 5:41pm Summary Purpose Additional Source Comments Goals (unrecognized section and content) Goals may be documented in a n alternate sectionGoals may be documented in an alternate sectionGoals may be documented in an alternate sectionGoals may be documented in an alternate sectionGoals may be documented in an alternate sectionGoals may be documented in an alternate sectionGoals may be documented in an alternate sectionGoals may be documented in an alternate section Care Teams (unrecognized sec tion and content) Team Status: Active Member Role Status Dates Dr. Shonda Stinson MD Family Provider Active Dr. Shonda Stinson MD Primary Care Provider Active Team Status: Inactive Member Role Status Dates Dr. Shonda Stinson MD Primary Care Provider, Referrin g Provider Active Dr. Erum Villegas MD Attending Provider Active Team Status: Inactive Member Role Status Dates Dr. Shonda Stinson MD Primary Care Provider, Attendin g Provider Active Team Status: Inactive Member Role Status Dates Dr. Shonda Stinson MD Primary Care Prov ider, Attending Provider, Referring Provider Active Team Status: Inactive Member Role Status Dates Dr. Shonda Stinson MD Primary Care Provider Active Dr. Erum Villegas MD Attending Provider, Referring Provider Active Team Status: Active Member Role Status Dates Dr. Shonda Stinson MD Primary Care Provider Active Dr. Erum Villegas MD Attending Provi nakia, Referring Provider, Other Provider Active Team Status: Active Member Role Status Dates Dr. Shonda Stinson MD Primary Care Provider Active Dr. Erum Villegas MD Admit Provider, Attending Provider, Referring Provider, Other Provider Active Team Status: Active Member Role Status Dates Dr. Shonda Stinson MD Primary Care Provider Active Dr. Diego George MD Attending Provider Active Dr. Lio Desir MD Referring Provider Active Team Status: Inactive Member Role Status Dates Dr. Shonda Stinson MD Primary Care Provider, Referrin g Provider Active Dr. Florencio Guillaume MD Attending Provider Active Team Status: Inactive Member Role Status Dates Dr. Shonda Stinson MD Primary Care Provider Active Dr. Erum Villegas MD Admit Provider, Attending Provider, Referring Provider Active Team Status: Active Member Role Status Dates Dr. Shonda Stinson MD Primary Care Provider Active Dr. Florencio Guillaume MD Attending Provider, Referring Pro vider Active Team Status: Inactive Member Role Status Dates Dr. Shonda Stinson MD Primary Care Provider Active Dr. Florencio Guillaume MD Attending Provider Active Team Status: Active Member Role Status Dates Dr. Shonda Stinson MD Primary Care Provider Active Dr. Florencio Guillaume MD Attending Provider Active Team Status: Inactive Member Role Status Dates Dr. Shonda Stinson MD Primary Care Provider Active Dr. Atilio Nathan MD Attending Provider Active Dr. Erum Villegas MD Referring Provider Active Team Status: Inactive Member Role Status Dates Dr. Shonda Stinson MD Primary Care Provider, Referrin g Provider Active Dr. Edouard Arevalo DO Attending Provider Active Team Status: Inactive Member Role Status Dates Dr. Shonda Stinson MD Primary Care Provider Active Dr. Atilio Nathan MD Attending Provider, Referring P rovider Active Team Status: Active Member Role Status Dates Dr. Shonda Stinson MD Primary Care Provider Active Dr. Atilio Nathan MD Attending Provider, Referring P rovider Active Team Status: Active Member Role Status Dates Dr. Shonda Stinson MD Primary Care Provider Active Dr. Edouard Arevalo DO Attending Provider Active Team Status: Active Member Role Status Dates Dr. Shnoda Stinson MD Primary Care Provider Active Dr. Florencio Guillaume MD Attending Provider, Referring Pro vider Active Dr. Edouard Arevalo DO Active Team Status: Inactive Member Role Status Dates Dr. Shonda Stinson MD Primary Care Provider Active Dr. Eliseo Vásquez MD Active Dr. Edouard Arevalo DO Attending Provider, Referring P rovider Active Team Status: Inactive Member Role Status Dates Dr. Shonda Stinson MD Primary Care Provider Active Dr. Edouard Arevalo DO Attending Provider, Referring P chintannakia Active Team Status: Inactive Member Role Status Dates Dr. Shonda Stinson MD Primary Care Provider, Referrin g Provider Active Yuliana Newell SPRING SETTER, SPRING SETTER-C Attending Provider Active Team Status: Inactive Member Role Status Dates Dr. Shonda Stinson MD Primary Care Provider Active Yuliana Newell SPRING SETTER, SPRING SETTER-C Attending Provider, Referring Provider Active Team Status: Inactive Member Role Status Dates Dr. Shonda Stinson MD Primary Care Provider, Referrin g Provider Active Dr. Atilio Nathan MD Attending Provider Active Team Status: Active Member Role Status Dates Dr. Shonda Stinson MD Primary Care Provider Active Dr. Atilio Nathan MD Attending Provide r, Referring Provider, Other Provider Active Team Status: Inactive Member Role Status Dates Dr. Shonda Stinson MD Primary Care Provider Active Dr. Atilio Nathan MD Active Dr. Erum Villegas MD Attending Provider, Referring Provider Active Team Status: Inactive Member Role Status Dates Dr. Shonda Stinson MD Primary Care Provider, Referrin g Provider Active Dr. Kash Corbett MD Attending Provider Active Team Status: Inactive Member Role Status Dates Dr. Shonda Stinson MD Primary Care Provider Active Dr. Kash Corbett MD Attending Provider, Referring Provi nakia Active Dr. Atilio Nathan MD Other Provider Active Team Status: Inactive Member Role Status Dates Dr. Shonda Stinson MD Primary Care Provider Active Dr. Kash Corbett MD Attending Provider, Referring Provi nakia Active Team Status: Active Member Role Status Dates Dr. Shonda Stinson MD Primary Care Provider Active Team Status: Inactive Member Role Status Dates Dr. Shonda Stinson MD Primary Care Provider Active Start: November 17, 2024 End: November 17, 2024 Dr. Shonda Stinson MD Referring Provider Active Start: November 17, 2024 End: November 17, 2024 Dr. Erum Villegas MD Attending Provider Active Start: November 17, 2024 End: November 17, 2024 Team Status: Inactive Member Role Status Dates Dr. Shonda Stinson MD Primary Care Provider Active Start: March 02, 2025 End: March 02, 2025 Dr. Shonda Stinson MD Referring Provider Active Start: March 02, 2025 End: March 02, 2025 Yuliana Newell NP, SPRING SETTER-C Attending Provider Active Start: March 02, 2025 End: March 02, 2025 Team Status: Active Member Role Status Dates Dr. Shonda Stinson MD Primary Care Provider Active Start: March 02, 2025 Dr. Florencio Guillaume MD Attending Provider Active S tart: March 02, 2025 Dr. Florencio Guillaume MD Referring Provider Active S tart: March 02, 2025 Team Status: Active Member Role/Relationship Status Dates Dr. Shonda Stinson MD Primary Care Provider Active Team Status: Inactive Member Role/Relationship Status Dates Dr. Shonda Stinson MD Primary Care Provider Active Start: March 02, 2025 End: March 02, 2025 Dr. Shonda Stinson MD Referring Provider Active Start: March 02, 2025 End: March 02, 2025 Yuliana Newell NP, SPRING SETTER-C Attending Provider Active Start: March 02, 2025 End: March 02, 2025 Team Status: Active Member Role/Relationship Status Dates Dr. Shonda Stinson MD Primary Care Provider Active Start: March 02, 2025 Dr. Florencio Guillaume MD Attending Provider Active S tart: March 02, 2025 Dr. Florencio Guillaume MD Referring Provider Active S tart: March 02, 2025 Team Status: Inactive Member Role/Relationship Status Dates Dr. Shonda Stinson MD Primary Care Provider Active Start: April 14, 2025 End: April 14, 2025 Dr. Shonda Stinson MD Referring Provider Active Start: April 14, 2025 End: April 14, 2025 Dr. Kash Corbett MD Attending Provider Active Sta rt: April 14, 2025 End: April 14, 2025 INFORMATION SOURCE (unrecogn ized section and content) DATE CREATED AUTHOR 10/24/2023 [facility] DATE CREATED AUTHOR AUTHOR'S ORGANIZ ATION 04/17/2025 [facility] FOR RECORDS PERTAINING TO PATIENTS WHO ARE [...] BE BASED ON THE PRIMARY CLINICAL RECORDS. [facility]. provides no warranty or guarantee of the accuracy or completeness of information in this document.
== END | disposition home or self-care (01) ==
LOC: OPBD 15:22
PROVIDERS: PCP Family Medicine; Referring Provider Internal Medicine Endocrinology, Diabetes & Metabolism; Visit Provider Internal Medicine Endocrinology, Diabetes & Metabolism
DX: M85.89 Other specified disorders of bone density and structure, multiple sites (principal); E89.2 Postprocedural hypoparathyroidism; E03.9 Hypothyroidism, unspecified
CPT/HCPCS: 36415; 77080; 80053; 84439; 84443

== ENCOUNTER → 2025-05-11 | Outpatient (CLI) | payer OTHER, SELFPAY ==
[2025-05-11 16:00] LABS: Mucous, Urine 0 SEEN /hpf (<or=2+)
[2025-05-11 16:06] LABS: Hematocrit 39.8 % (37-47); Hemoglobin 13.9 g/dL (12.0-15.0); Immature Granulocytes Count 0.020 X10^3/uL (0.0-0.0); Mean Corp Hgb Conc 34.9 g/dL (32-36); Mean Corpuscular Volume 89.0 fL (81-99); Mean Platelet Vol. 9.9 fl (6.2-12.0); NRBC Flagged by Analyzer 0 % (0-5); Platelet Count 255 K/mm3 (150-450); RBC Distribution Width CV 11.8 % (11.6-14.6); RBC Distribution Width SD 38.0 fl (35.1-43.9); Red Blood Count 4.47 M/mm3 (4.2-5.4); White Blood Count 6.5 K/mm3 (4.4-11.0)
[2025-05-11 16:30] LABS: AST(SGOT) 31 U/L (<=31); Alanine Aminotransfer ALT/SGPT 38 U/L (<=34); Albumin, Serum 4.1 g/dL (3.4-4.8); Alkaline Phosphatase 79 U/L (35-104); Anion Gap 12 (5-15); BUN 14 mg/dL (4-19); BUN/Creat Ratio 16.1 RATIO (10-20); Calcium,Total 8.3 mg/dL (7.6-11.0); Carbon Dioxide 24.0 mmol/L (21.0-32.0); Chloride 104 mmol/L (98-108); Globulin 3.3 g/dL (2.2-4.2); Glucose 111 mg/dL (70-99); Potassium 4.0 mmol/L (3.3-5.1)
[2025-05-11 16:49] LABS: Color, Urine Straw (Yellow); Glucose, Dipstick Normal (Normal); Ketone-Dipstick Negative (Negative); Leukocyte Esterase-Dipstick Negative /ul (Negative); Nitrite-Dipstick Negative (Negative); Occult Blood-Urine Negative /ul (Negative); Protein-Dipstick 15 mg/dl (Negative); Specific Gravity, Urine 1.020 (1.002-1.030); Urine Bilirubin Dipstick Negative (Negative)
[2025-05-11 17:40] LABS: Red Blood Cells-Urine 0-5 SEEN /hpf (0-5); Squamous Epithelial Cells - UA 0-5 SEEN /hpf (5-10)
[2025-05-15 13:08] LABS: ANTINUCLEAR ANTIBODIES DIRECT Negative (Negative); Anti-dsDNA Ab 3 IU/mL (0-9)
== END | disposition home or self-care (01) ==
PROVIDERS: PCP Family Medicine; Referring Provider Internal Medicine Endocrinology, Diabetes & Metabolism; Visit Provider Internal Medicine Endocrinology, Diabetes & Metabolism
DX: L93.0 Discoid lupus erythematosus (principal)
CPT/HCPCS: 36415; 80053; 81001; 82088; 85025; 86038; 86225